=== PATIENT | female | born 1985 | race Hispanic/Latino ===

== ENCOUNTER 2017-08-24 09:56 | Emergency (ER) | payer OTHER, SELFPAY ==
[2017-08-24] MEDS ORDERED: KETOROLAC 30 MG/ML INJ ONE (10:31)
[2017-08-24 10:39] LABS: Urine Blood NEGATIVE (NEG); Urine Glucose NEGATIVE (NEG); Urine Protein NEGATIVE (NEG)
--- NOTE | 2017-08-24 10:41 | EDPHYS ---
Physician Documentation [facility] Name: Katy Stone Age: 32 yrs Sex: Female : 1985 Arrival Date: 08/24/2017 Time: 09:59 Bed 12 Private MD: ED Physician Akil Pearce HPI: 08/24 10:16 This 32 yrs old Female presents to ER via Ambulatory with complaints of low cp back pain. 10:16 The patient presents with pain that is acute. cp 10:16 The symptoms are located in the low back. Onset: The symptoms/episode began/occurred cp yesterday. The pain radiates to the left hip. Associated signs and symptoms: Pertinent negatives: abdominal pain, constipation, fever, hematuria, numbness, tingling, urinary retention, weakness, bladder or bowel incontinence. The problem was sustained started after bending over to bath child. Modifying factors: the patient symptoms are aggravated by bending. 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 - Social history:: Smoking status: Patient uses tobacco products, smokes one-half pack cigarettes per day. ROS: 10:20 Constitutional: Negative for body aches, chills, fever, poor PO intake. cp 10:20 Eyes: Negative for injury, pain, redness, and discharge. cp 10:20 Neck: Negative for pain with movement, pain at rest, stiffness, tenderness, bony tenderness. 10:20 Cardiovascular: Negative for chest pain, edema, palpitations. 10:20 Respiratory: Negative for cough, shortness of breath, wheezing. 10:20 Abdomen/GI: Negative for abdominal pain, nausea, vomiting, and diarrhea, black/tarry stool, rectal bleeding, bowel incontinence. 10:20 Back: Positive for pain at rest, pain with movement, of the left low back. 10:20 : Negative for urinary symptoms. 10:20 Skin: Negative for cellulitis, rash. 10:20 Neuro: Negative for altered mental status, gait disturbance, numbness, tingling, weakness. 10:20 All other systems are negative. Exam: 10:25 Constitutional: The patient appears in no acute distress, alert, awake, non-toxic, well cp developed, well nourished. 10:25 Head/Face: Normocephalic, atraumatic. cp 10:25 Eyes: Periorbital structures: appear normal, Conjunctiva: normal, no exudate, no injection, Lids and lashes: appear normal, bilaterally. 10:25 ENT: External ear(s): are unremarkable, Nose: is normal, Mouth: is normal, Posterior pharynx: is normal, airway is patent, no erythema, no exudate. 10:25 Neck: ROM/movement: is normal, is supple, without pain, no range of motions limitations, no nuchal rigidity. 10:25 Chest/axilla: Inspection: normal, Palpation: is normal, no crepitus, no tenderness. 10:25 Cardiovascular: Rate: normal, Rhythm: regular. 10:25 Respiratory: the patient does not display signs of respiratory distress, Respirations: normal, no use of accessory muscles, no retractions, no splinting, no tachypnea. 10:25 Abdomen/GI: Exam negative for discomfort, distension, guarding, Inspection: abdomen appears normal. 10:25 Back: pain, that is mild, of the left low back, ROM is normal, muscle spasm, is not present. 10:25 Skin: cellulitis, is not appreciated, no rash present. 10:25 Neuro: Orientation: to person, place \T\ time. Mentation: is normal, Motor: moves all fours, strength is normal, Sensation: no obvious gross deficits, Gait: is steady, at a normal pace, without difficulty. 10:25 Musculoskeletal/extremity: Extremities: grossly normal except: noted in the left hip: cp radiating pain, There is no evidence of decreased ROM, deformity. Vital Signs: 10:01 BP 130 / 83; Pulse 90; Resp 15; Temp 97.5; Pulse Ox 100% on R/A; Weight 77.11 kg; la1 Height 5 ft. 2 in. (157.48 cm); 10:01 Body Mass Index 31.09 (77.11 kg, 157.48 cm) la1 MDM: 10:12 Patient medically screened. cp 10:20 Differential diagnosis: Cholelithiasis ruptured disc, Ureterolithiasis UTI, sciatica, cp cauda equina, spinal stenosis. 10:40 Data reviewed: vital signs, nurses notes, lab test result(s), and as a result, I will cp discharge patient. 10:40 Counseling: I had a detailed discussion with the patient and/or guardian regarding: the cp historical points, exam findings, and any diagnostic results supporting the discharge/admit diagnosis, lab results, the need for outpatient follow up, a family practitioner, to return to the emergency department if symptoms worsen or persist or if there are any questions or concerns that arise at home. 10:40 Response to treatment: There is no appreciated change of the patient's symptoms at this cp time, and as a result, I will discharge patient. 08/24 10:27 Order name: Urine Dipstick--Ancillary (enter results); Complete Time: 10:42 ag 08/24 10:42 Interpretation: Normal except: UESTR TRACE. cp 08/24 10:27 Order name: Urine --Ancillary (enter results); Complete Time: 10:42 ag 08/24 10:42 Interpretation: Reviewed. cp 08/24 10:17 Order name: Urine Dipstick-Ancillary (obtain specimen); Complete Time: 10:18 cp 08/24 10:17 Order name: Urine Test (obtain specimen); Complete Time: 10:23 cp Administered Medications: 10:35 Drug: TORadol 60 mg Route: IM; Site: right gluteus; iw Disposition: 14:04 Co-signature as Attending Physician, Akil Pearce MD I agree with the assessment and kdr plan of care. Disposition: 08/24/17 10:40 Discharged to Home. Impression: Low back pain. - Condition is Stable. - Discharge Instructions: Back Pain, Adult, Back Exercises, [id number], Heat Therapy. - Prescriptions for Naprosyn 500 mg Oral Tablet - take 1 tablet by ORAL route 2 times per day take with food; 20 tablet. Cyclobenzaprine 10 mg Oral Tablet - take 1 tablet by ORAL route every 8 hours As needed no driving while taking medication; 20 tablet. - Work release form, Medication Reconciliation Form, Thank You Letter, Antibiotic Education, Prescription Opioid Use form. - Follow up: Private Physician; When: 2 - 3 days; Reason: Recheck today's complaints. - Problem is new. - Symptoms are unchanged. Signatures: Dispatcher [employer] Akil Arrieta MD MD kdr Amanda Verma RN RN iw Edwar Horowitz RN RN la1 Hermes Voss PA PA cp
--- NOTE | 2017-08-24 10:41 | ER ---
Nurse's Notes [facility] Name: Katy Stone Age: 32 yrs Sex: Female : 1985 Arrival Date: 08/24/2017 Time: 09:59 Bed 12 Private MD: Diagnosis: Low back pain Presentation: 08/24 10:01 Presenting complaint: Patient states: Yesterday I was bathing my son and I got a pain la1 in my left lower back and in to my hip. Transition of care: patient was not received from another setting of care. Onset of symptoms was August 24, 2017. Care prior to arrival: None. 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 - Social history:: Smoking status: Patient uses tobacco products, smokes one-half pack cigarettes per day. Screenin:13 Abuse screen: Denies threats or abuse. Denies injuries from another. Nutritional iw screening: No deficits noted. Tuberculosis screening: No symptoms or risk factors identified. Fall Risk None identified. Assessment: 10:13 General: Appears in no apparent distress. Behavior is calm, cooperative. Pain: iw Complains of pain in left lower back Pain currently is 8 out of 10 on a pain scale. Neuro: Level of Consciousness is awake, alert, obeys commands, Oriented to person, place, time, situation, Moves all extremities. Cardiovascular: Patient's skin is warm and dry. Respiratory: Respiratory effort is even, unlabored, Respiratory pattern is regular, symmetrical. GI: No signs and/or symptoms were reported involving the gastrointestinal system. Derm: Skin is pink, warm \T\ dry. normal. Musculoskeletal: Reports pain in back. Vital Signs: 10:01 BP 130 / 83; Pulse 90; Resp 15; Temp 97.5; Pulse Ox 100% on R/A; Weight 77.11 kg; la1 Height 5 ft. 2 in. (157.48 cm); 10:01 Body Mass Index 31.09 (77.11 kg, 157.48 cm) la1 ED Course: 09:59 Patient arrived in ED. tw3 10:01 Triage completed. la1 10:02 Arm band placed on left wrist. la1 10:06 Amanda Verma RN is Primary Nurse. iw 10:12 Hermes Voss PA is PHCP. cp 10:12 Akil Pearce MD is Attending Physician. cp 10:13 Patient has correct armband on for positive identification. iw 10:13 No provider procedures requiring assistance completed. iw Administered Medications: 10:35 Drug: TORadol 60 mg Route: IM; Site: right gluteus; iw Outcome: 10:40 Discharge ordered by . cp 11:07 Patient left the ED. iw Signatures: Amanda Verma RN RN iw Edwar Horowitz RN RN la1 Hermes Voss PA PA Breanna Duvall tw3
[2017-08-24 11:11] VITALS: BP 130/83; TEMP 97.5; O2SAT 100
== END 2017-08-24 11:07 | disposition home or self-care (01) ==
LOC: ER 09:56
DX: M54.5 Low back pain (principal); F17.210 Nicotine dependence, cigarettes, uncomplicated
CPT/HCPCS: 81003; 81025; 96372; 99282

== ENCOUNTER 2018-03-08 09:00 | Emergency (ER) | payer SELFPAY ==
[2018-03-08 10:03] LABS: Absolute Lymphocytes (CBC) 2.4 K/uL (0.7-4.9); Absolute Monocytes 0.8 K/uL (0.1-1.3); Basophils % 0.3 % (0-1.3); Eosinophils % 0.5 % (0-4.4); Hematocrit 40.1 % (36.0-45.0); Lymphocytes % 23.5 % (15.3-44.8); MCH 30.9 pg (27.0-35.0); MCV 92.2 fL (80-100); MPV 8.9 fL (7.6-11.3); Monocytes % 8.1 % (3.3-12.3); RBC Red Blood Cell Count 4.35 M/uL (3.86-4.86)
[2018-03-08] MEDS ORDERED: KETOROLAC 30 MG/ML INJ ONE (10:07)
[2018-03-08 10:15] LABS: BUN Blood Urea Nitrogen 13 mg/dL (7-18); Bicarbonate 26 mmol/L (21-32); Glucose Level 108 mg/dL (74-106); Potassium 4.1 mmol/L (3.5-5.1); Sodium Level 139 mmol/L (136-145); Troponin (Emerg Dept Use Only) < 0.02 ng/mL (0.0-0.045)
[2018-03-08 10:41] LABS: Urine Blood TRACE (NEG); Urine Glucose NEGATIVE (NEG); Urine Protein TRACE (NEG)
--- NOTE | 2018-03-08 11:42 | ER ---
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 Pt also reports SOB. Transition of care: patient was not received from another setting of care. Onset of symptoms was February 2018. Risk Assessment: Do you want to hurt yourself or someone else? Patient reports no desire to harm self or others. Initial Sepsis Screen: Does the patient meet any 2 criteria? No. Patient's initial sepsis screen is negative. Does the patient have a suspected source of infection? No. Patient's initial sepsis screen is negative. Care prior to arrival: None. 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 - Social history:: Smoking status: Patient/guardian denies using tobacco, Patient/guardian denies using street drugs. - Ebola Screening: : No symptoms or risks identified at this time. Screenin:30 Abuse screen: Denies threats or abuse. Nutritional screening: No deficits noted. em Tuberculosis screening: No symptoms or risk factors identified. Fall Risk None identified. Assessment: 09:30 General: Appears in no apparent distress. uncomfortable, Behavior is cooperative, em anxious. Pain: Complains of pain in anterior aspect of left upper chest Pain radiates to left submandibular area Pain currently is 8 out of 10 on a pain scale. Pain began 1 hour ago. Neuro: Level of Consciousness is awake, alert, obeys commands, Oriented to person, place, time, situation. Cardiovascular: Reports chest pain, Heart tones S1 S2 present Capillary refill < 3 seconds Patient's skin is warm and dry. Respiratory: Airway is patent Respiratory effort is even, unlabored, Respiratory pattern is regular, symmetrical, Breath sounds are clear bilaterally. GI: Abdomen is round non-distended. : No signs and/or symptoms were reported regarding the genitourinary system. Derm: Skin is intact, Skin is pink, warm \T\ dry. Musculoskeletal: Capillary refill < 3 seconds, Range of motion: intact in all extremities. 09:30 Reassessment: I agree with assessment completed by Taras Rangel LVN . aa5 10:30 Reassessment: Patient appears in no apparent distress at this time. Patient and/or em family updated on plan of care and expected duration. Pain level reassessed. Patient is alert, oriented x 3, equal unlabored respirations, skin warm/dry/pink. 11:50 Reassessment: Patient appears in no apparent distress at this time. Patient and/or em family updated on plan of care and expected duration. Pain level reassessed. Patient is alert, oriented x 3, equal unlabored respirations, skin warm/dry/pink. rates pain 2/10 Patient states feeling better. Patient states symptoms have improved. Vital Signs: 09:15 BP 133 / 72; Pulse 104; Resp 20 S; Temp 98.7(TE); Pulse Ox 100% on R/A; Weight 77.11 kg aa5 (R); Height 5 ft. 1 in. (154.94 cm) (R); Pain 8/10; 09:15 Body Mass Index 32.12 (77.11 kg, 154.94 cm) aa5 09:15 Pt crying during VS aa5 ED Course: 09:02 Patient arrived in ED. mr 09:02 None, None is Private Physician. mr 09:15 Triage completed. aa5 09:15 Arm band placed on. aa5 09:20 Taras Rangel LVN is Primary Nurse. em 09:21 EKG completed in triage. Results shown to MD. aa5 09:24 Olayinka Mario MD is Attending Physician. gs 09:30 Patient has correct armband on for positive identification. Placed in gown. Bed in low em position. Call light in reach. residential monitor on. Pulse ox on. NIBP on. 09:48 Initial lab(s) drawn, by me, sent to lab. Urine collected: clean catch specimen, clear. mh5 Inserted saline lock: 20 gauge in right antecubital area, using aseptic technique. Blood collected. 09:52 Urine --Ancillary (enter results) Sent. 5 09:52 Urine Dipstick--Ancillary (enter results) Sent. [facility] 09:52 Basic Metabolic Panel Sent. [facility] 09:52 CBC with Diff Sent. [facility] 09:52 Troponin (emerg Dept Use Only) Sent. [facility] 10:11 X-ray completed. Portable x-ray completed in exam room. 1 10:13 XRAY Chest (1 view) In Process Unspecified. EDMS 11:48 Patient maintains SpO2 saturation greater than 95% on room air. em 12:15 No provider procedures requiring assistance completed. IV discontinued, intact, em bleeding controlled, No redness/swelling at site. Pressure dressing applied. Administered Medications: 10:16 Drug: TORadol 30 mg Route: IVP; Site: right antecubital; 5 10:45 Follow up: Response: No adverse reaction; Pain is decreased em Outcome: 11:42 Discharge ordered by . 12:15 Discharged to home ambulatory. em 12:15 Condition: good 12:15 Discharge instructions given to patient, Instructed on discharge instructions, follow up and referral plans. medication usage, Demonstrated understanding of instructions, follow-up care, medications, Prescriptions given X 1. 12:16 Patient left the ED. em Signatures: Dispatcher [employer] JONATANMI WilkesDarcie mr StephenRenee jr1 Taras Rangel, BANKING SERVICES CLERK BANKING SERVICES CLERK Laxmi Bah, Xiomara Cerda RN [facility] Olayinka Mario MD MD
--- NOTE | 2018-03-08 12:17 | EDPHYS ---
Physician Documentation [facility] Name: Katy Stone Age: 33 yrs Sex: Female : 1985 Arrival Date: 03/08/2018 Time: 09:02 Bed 15 Private MD: None, None ED Physician Olayinka Mario HPI: 03/08 11:26 This 33 yrs old Female presents to ER via Ambulatory with complaints of Chest gs Pain. 11:26 The patient or guardian reports chest pain that is located primarily in the anterior gs chest wall, left. The pain does not radiate. Associated signs and symptoms: Pertinent positives: left sided neck pain, neck stiffens up hurts to move similar episodes in past. The chest pain is described as sharp. Duration: The patient or guardian reports multiple episodes, that are intermittent, that wax and wane, with no pattern, the episodes last approximately 30 second(s). Modifying factors: the symptoms are aggravated by movement, twisting torso. Severity of pain: At its worst the pain was moderate in the emergency department the pain has resolved. The patient has experienced similar episodes in the past, several times. 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 - Social history:: Smoking status: Patient/guardian denies using tobacco, Patient/guardian denies using street drugs. - Ebola Screening: : No symptoms or risks identified at this time. ROS: 11:26 Cardiovascular: Negative for orthopnea, palpitations. gs 11:26 Respiratory: Negative for pleurisy, shortness of breath. 11:26 All other systems are negative. Exam: 11:26 Head/Face: Normocephalic, atraumatic. Eyes: Pupils equal round and reactive to light, gs extra-ocular motions intact. Lids and lashes normal. Conjunctiva and sclera are non-icteric and not injected. Cornea within normal limits. Periorbital areas with no swelling, redness, or edema. ENT: Nares patent. No nasal discharge, no septal abnormalities noted. Tympanic membranes are normal and external auditory canals are clear. Oropharynx with no redness, swelling, or masses, exudates, or evidence of obstruction, uvula midline. Mucous membranes moist. Neck: Trachea midline, no thyromegaly or masses palpated, and no cervical lymphadenopathy. Supple, full range of motion without nuchal rigidity, or vertebral point tenderness. No Meningismus. Chest/axilla: Normal chest wall appearance and motion. Nontender with no deformity. No lesions are appreciated. Cardiovascular: Regular rate and rhythm with a normal S1 and S2. No gallops, murmurs, or rubs. Normal PMI, no JVD. No pulse deficits. Respiratory: Lungs have equal breath sounds bilaterally, clear to auscultation and percussion. No rales, rhonchi or wheezes noted. No increased work of breathing, no retractions or nasal flaring. Abdomen/GI: Soft, non-tender, with normal bowel sounds. No distension or tympany. No guarding or rebound. No evidence of tenderness throughout. Back: No spinal tenderness. No costovertebral tenderness. Full range of motion. Skin: Warm, dry with normal turgor. Normal color with no rashes, no lesions, and no evidence of cellulitis. MS/ Extremity: Pulses equal, no cyanosis. Neurovascular intact. Full, normal range of motion. Neuro: Awake and alert, GCS 15, oriented to person, place, time, and situation. Cranial nerves II-XII grossly intact. Motor strength 5/5 in all extremities. Sensory grossly intact. Cerebellar exam normal. Normal gait. 11:26 Constitutional: The patient appears alert, awake. 11:26 ECG was reviewed by the Attending Physician. Vital Signs: 09:15 BP 133 / 72; Pulse 104; Resp 20 S; Temp 98.7(TE); Pulse Ox 100% on R/A; Weight 77.11 kg aa5 (R); Height 5 ft. 1 in. (154.94 cm) (R); Pain 8/10; 09:15 Body Mass Index 32.12 (77.11 kg, 154.94 cm) aa5 09:15 Pt crying during VS aa5 MDM: 09:35 Patient medically screened. 11:26 Differential diagnosis: coronary artery disease chest wall pain, torticollis. Data gs reviewed: vital signs, nurses notes. 11:26 Counseling: I had a detailed discussion with the patient and/or guardian regarding: the gs presence of at least one elevated blood pressure reading (>120/80) during this emergency department visit. Response to treatment: the patient's symptoms have resolved after treatment, the patient's pain is gone. Special discussion: I have referred the patient to see his PCP for further evaluation of high blood pressure. 03/08 09:36 Order name: Basic Metabolic Panel; Complete Time: 10:47 03/08 09:36 Order name: CBC with Diff; Complete Time: 10:47 03/08 09:36 Order name: Troponin (emerg Dept Use Only); Complete Time: 10:47 gs 03/08 09:36 Order name: XRAY Chest (1 view) 03/08 09:51 Order name: Urine Dipstick--Ancillary (enter results); Complete Time: 10:47 03/08 09:51 Order name: Urine --Ancillary (enter results); Complete Time: 10:47 eb 03/08 09:36 Order name: EKG; Complete Time: 09:37 03/08 09:36 Order name: Cardiac monitoring; Complete Time: 09:52 03/08 09:36 Order name: EKG - Nurse/Tech; Complete Time: 09:52 03/08 09:36 Order name: IV Saline Lock; Complete Time: 09:52 03/08 09:36 Order name: Labs collected and sent; Complete Time: 09:53 03/08 09:36 Order name: O2 Per Protocol; Complete Time: 09:56 03/08 09:36 Order name: O2 Sat Monitoring; Complete Time: 09:55 gs EC:26 Rate is 85 beats/min. Rhythm is regular. MA interval is normal. QRS interval is normal. gs QT interval is normal. T waves are Normal. No ST changes noted. Clinical impression: Normal ECG. Interpreted by me. Administered Medications: 10:16 Drug: TORadol 30 mg Route: IVP; Site: right antecubital; aa5 10:45 Follow up: Response: No adverse reaction; Pain is decreased em Disposition: 03/08/18 11:42 Discharged to Home. Impression: Chest pain, unspecified, Torticollis. - Condition is Stable. - Discharge Instructions: Nonspecific Chest Pain, Acute Torticollis, Adult, Managing Your Hypertension. - Prescriptions for Naprosyn 500 mg Oral Tablet - take 1 tablet by ORAL route 2 times per day As needed take with food; 30 tablet. - Work release form, Medication Reconciliation Form, Thank You Letter, Antibiotic Education, Prescription Opioid Use form. - Follow up: Private Physician; When: 2 - 3 days; Reason: Re-evaluation by your physician. Signatures: Dispatcher [employer] EDTaras Veliz, EXTERMINATOR EXTERMINATOR Laxmi Bah RN RN aa5 Olayinka Mario MD MD gs Corrections: (The following items were deleted from the chart) 12:16 11:42 03/08/2018 11:42 Discharged to Home. Impression: Chest pain, unspecified; em Torticollis. Condition is Stable. Forms are Medication Reconciliation Form, Thank You Letter, Antibiotic Education, Prescription Opioid Use. Follow up: Private Physician; When: 2 - 3 days; Reason: Re-evaluation by your physician. gs
--- NOTE | 2018-03-08 12:33 | RAD REPORT ---
EXAM DESCRIPTION: Gurjit Single View03/08/2018 10:13 am CLINICAL HISTORY: Chest pain COMPARISON: none FINDINGS: The lungs appear clear of acute infiltrate. The heart is mildly enlarged IMPRESSION: No acute abnormalities displayed
[2018-03-08 12:35] VITALS: BP 133/72; TEMP 98.7; O2SAT 100
--- NOTE | 2018-03-09 19:17 | EKG ---
Test Date: 2018-03-08 Test Time: 09:20:11 Purchasing Assistant: DORYS MEASUREMENT RESULTS: Intervals: Rate: 85 LA: 160 QRSD: 90 QT: 378 QTc: 449 Foley: P: 49 LA: 160 QRS: 73 T: 59 INTERPRETIVE STATEMENTS: Normal sinus rhythm with sinus arrhythmia Normal ECG Compared to ECG 03/21/2007 16:18:55 No significant changes Electronically Signed On 03-09-18 19:15:00 CDT by Tony Muñoz
== END 2018-03-08 12:16 | disposition home or self-care (01) ==
LOC: ER 09:00
DX: M43.6 Torticollis (principal)
CPT/HCPCS: 36415; 71045; 80048; 81003; 81025; 84484; 85025; 93005; 96374; 99285

== ENCOUNTER 2018-11-24 14:44 | Emergency (ER) | payer SELFPAY ==
--- NOTE | 2018-11-24 15:19 | ER ---
Nurse's Notes [facility] Name: Katy Stone Age: 33 yrs Sex: Female : 1985 Arrival Date: 11/24/2018 Time: 14:47 Bed 30 Private MD: Diagnosis: Dental caries;Dentalgia Presentation: 11/24 14:50 Presenting complaint: Patient states: "I have a toothache and it's making my right ear aa5 hurt and the whole right side of my head is hurting too". Pt reports symptoms began 3 days ago. Transition of care: patient was not received from another setting of care. Onset of symptoms was November 2018. Risk Assessment: Do you want to hurt yourself or someone else? Patient reports no desire to harm self or others. Initial Sepsis Screen: Does the patient meet any 2 criteria? No. Patient's initial sepsis screen is negative. Does the patient have a suspected source of infection? No. Patient's initial sepsis screen is negative. Care prior to arrival: None. 14:50 Method Of Arrival: Ambulatory aa5 14:50 Acuity: KIRIT 4 aa5 Triage Assessment: 15:43 EENT: Reports. 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 - Social history:: Smoking status: Patient uses tobacco products, denies chronic smoking, but will smoke occasionally. - Ebola Screening: : No symptoms or risks identified at this time. Screenin:00 Abuse screen: Denies threats or abuse. Denies injuries from another. Nutritional ca1 screening: No deficits noted. Tuberculosis screening: No symptoms or risk factors identified. Fall Risk None identified. Assessment: 15:00 General: Appears in no apparent distress. comfortable, Behavior is calm, cooperative, ca1 appropriate for age. Pain: Complains of pain in lower right second molar (#31) and lower right first molar (#30) and upper right first molar (#3) and upper right second molar (#2) Pain radiates to right ear Pain currently is 10 out of 10 on a pain scale. Pain began a week ago. EENT: Oral mucosa is moist. Good dentition noted. Dental caries noted in lower right second molar (#31) and lower right first molar (#30) and upper right first molar (#3) and upper right second molar (#2). 15:42 Reassessment: Patient appears in no apparent distress at this time. Patient is alert, ca1 oriented x 3, equal unlabored respirations, skin warm/dry/pink. Vital Signs: 14:52 BP 126 / 70; Pulse 78; Resp 18 S; Temp 99.2(TE); Pulse Ox 100% on R/A; Weight 90.72 kg aa5 (R); Height 5 ft. 1 in. (154.94 cm) (R); Pain 10/10; 15:42 BP 120 / 63; Pulse 81; Resp 16 S; Pulse Ox 100% on R/A; ca1 14:52 Body Mass Index 37.79 (90.72 kg, 154.94 cm) aa5 ED Course: 14:47 Patient arrived in ED. rg4 14:50 Arm band placed on. aa5 14:51 Triage completed. aa5 14:55 Meenakshi Crane RN is Primary Nurse. ca1 14:55 Karel Samuel PA is PHCP. jr8 14:55 Akil Pearce MD is Attending Physician. jr8 15:00 Patient has correct armband on for positive identification. Bed in low position. Call ca1 light in reach. Side rails up X 1. Pulse ox on. NIBP on. Head of bed elevated. 15:00 No provider procedures requiring assistance completed. Patient did not have IV access ca1 during this emergency room visit. Administered Medications: 15:23 Drug: TORadol - Ketorolac 15 mg Route: IM; Site: right deltoid; ca1 15:40 Follow up: Response: Medication administered at discharge. ca1 Outcome: 15:18 Discharge ordered by . jrDerick 15:43 Discharged to home ambulatory, with family. ca1 15:43 Condition: stable 15:43 Discharge instructions given to patient, Instructed on discharge instructions, follow up and referral plans. no driving heavy equipment, medication usage, Demonstrated understanding of instructions, follow-up care, medications, Prescriptions given X 3. 15:43 Patient left the ED. ca1 Signatures: Laxmi Singer RN RN 5 Karel Samuel PA PA 8 Kim Lawton rg4 Acob, Meenakshi, RN RN ca1
--- NOTE | 2018-11-24 15:19 | EDPHYS ---
Physician Documentation [facility] Name: Katy Stone Age: 33 yrs Sex: Female : 1985 Arrival Date: 11/24/2018 Time: 14:47 Bed 30 Private MD: ED Physician Akil Pearce HPI: 11/24 15:13 This 33 yrs old Female presents to ER via Ambulatory with complaints of jr8 Toothache, Headache, Ear Pain. 15:13 The patient presents with pain, swelling. The problem is located in the right lower jr8 jaw. Onset: The symptoms/episode began/occurred acutely, 3 day(s) ago. Duration: The symptoms are continuous, and are steadily getting worse. Modifying factors: The symptoms are alleviated by nothing, the symptoms are aggravated by chewing. Associated signs and symptoms: Pertinent negatives: chills, fever, nausea, vomiting. Severity of symptoms: At their worst the symptoms were moderate, in the emergency department the symptoms are unchanged. The patient has not experienced similar symptoms in the past. The patient has not recently seen a physician. 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 - Social history:: Smoking status: Patient uses tobacco products, denies chronic smoking, but will smoke occasionally. - Ebola Screening: : No symptoms or risks identified at this time. ROS: 15:13 Constitutional: Negative for fever, chills, and weight loss, Eyes: Negative for injury, jr8 pain, redness, and discharge, Neck: Negative for injury, pain, and swelling, Cardiovascular: Negative for chest pain, palpitations, and edema, Respiratory: Negative for shortness of breath, cough, wheezing, and pleuritic chest pain, Abdomen/GI: Negative for abdominal pain, nausea, vomiting, diarrhea, and constipation, MS/Extremity: Negative for injury and deformity, Skin: Negative for injury, rash, and discoloration, Neuro: Negative for headache, weakness, numbness, tingling, and seizure. 15:13 ENT: Positive for dental pain, ear pain, Negative for drainage from ear(s), hearing loss, sinus congestion, sinus pain, sore throat, difficulty swallowing. Exam: 15:13 Constitutional: This is a well developed, well nourished patient who is awake, alert, jr8 and in no acute distress. Head/Face: Normocephalic, atraumatic. Eyes: Pupils equal round and reactive to light, extra-ocular motions intact. Lids and lashes normal. Conjunctiva and sclera are non-icteric and not injected. Cornea within normal limits. Periorbital areas with no swelling, redness, or edema. Neck: Trachea midline, no thyromegaly or masses palpated, and no cervical lymphadenopathy. Supple, full range of motion without nuchal rigidity, or vertebral point tenderness. No Meningismus. Cardiovascular: Regular rate and rhythm with a normal S1 and S2. No gallops, murmurs, or rubs. Normal PMI, no JVD. No pulse deficits. Respiratory: Lungs have equal breath sounds bilaterally, clear to auscultation and percussion. No rales, rhonchi or wheezes noted. No increased work of breathing, no retractions or nasal flaring. Abdomen/GI: Soft, non-tender, with normal bowel sounds. No distension or tympany. No guarding or rebound. No evidence of tenderness throughout. Skin: Warm, dry with normal turgor. Normal color with no rashes, no lesions, and no evidence of cellulitis. MS/ Extremity: Pulses equal, no cyanosis. Neurovascular intact. Full, normal range of motion. Neuro: Awake and alert, GCS 15, oriented to person, place, time, and situation. Cranial nerves II-XII grossly intact. Motor strength 5/5 in all extremities. Sensory grossly intact. Cerebellar exam normal. Normal gait. 15:13 ENT: External ear(s): are unremarkable, Ear canal(s): are normal, TM's: are normal, Nose: is normal, Mouth: is normal, no abscess, Posterior pharynx: is normal, erythema, is not appreciated, Dental exam: dental caries, that is mild, diffusely, gum swelling, not appreciated, pain, that is moderate, specifically in the upper right second molar (#2), upper right first molar (#3), lower right first molar (#30) and lower right second molar (#31). Vital Signs: 14:52 BP 126 / 70; Pulse 78; Resp 18 S; Temp 99.2(TE); Pulse Ox 100% on R/A; Weight 90.72 kg aa5 (R); Height 5 ft. 1 in. (154.94 cm) (R); Pain 10/10; 15:42 BP 120 / 63; Pulse 81; Resp 16 S; Pulse Ox 100% on R/A; ca1 14:52 Body Mass Index 37.79 (90.72 kg, 154.94 cm) aa5 MDM: 14:55 Patient medically screened. jr8 15:13 Data reviewed: vital signs, nurses notes, and as a result, I will discharge patient. jr8 Data interpreted: Pulse oximetry: on room air is 100 %. Interpretation: normal. Counseling: I had a detailed discussion with the patient and/or guardian regarding: the historical points, exam findings, and any diagnostic results supporting the discharge/admit diagnosis, the need for outpatient follow up, a dentist, to return to the emergency department if symptoms worsen or persist or if there are any questions or concerns that arise at home. Administered Medications: 15:23 Drug: TORadol - Ketorolac 15 mg Route: IM; Site: right deltoid; ca1 15:40 Follow up: Response: Medication administered at discharge. ca1 Disposition: 16:40 Co-signature as Attending Physician, Akil Pearce MD I agree with the assessment and kdr plan of care. Disposition: 11/24/18 15:18 Discharged to Home. Impression: Dental caries, Dentalgia. - Condition is Stable. - Discharge Instructions: Dental Abscess, Dental Caries, Adult, Dental Pain. - Prescriptions for Amoxicillin 875 mg Oral Tablet - take 1 tablet by ORAL route every 12 hours for 10 days; 20 tablet. Ibuprofen 800 mg Oral Tablet - take 1 tablet by ORAL route every 8 hours As needed take with food; 30 tablet. Tylenol- Codeine #3 300-30 mg Oral Tablet - take 2 tablets by ORAL route every 6 hours As needed; 12 tablet. - Medication Reconciliation Form, Thank You Letter, Antibiotic Education, Prescription Opioid Use form. - Follow up: Private Physician; When: 2 - 3 days; Reason: Recheck today's complaints, Continuance of care, Re-evaluation by your physician. - Problem is new. - Symptoms have improved. Signatures: Akil Pearce MD MD kdr Laxmi Singer, RN RN aa5 Karel Samuel PA PA jr8 Meenakshi Crane RN RN ca1 Corrections: (The following items were deleted from the chart) 15:43 15:18 11/24/2018 15:18 Discharged to Home. Impression: Dental caries; Dentalgia. ca1 Condition is Stable. Forms are Medication Reconciliation Form, Thank You Letter, Antibiotic Education, Prescription Opioid Use. Follow up: Private Physician; When: 2 - 3 days; Reason: Recheck today's complaints, Continuance of care, Re-evaluation by your physician. Problem is new. Symptoms have improved. jr8
[2018-11-24] MEDS ORDERED: KETOROLAC 30 MG/ML INJ ONE (15:49)
[2018-11-24 16:54] VITALS: TEMP 99.2; O2SAT 100
[2018-11-24 16:55] VITALS: BP 120/63
== END 2018-11-24 15:43 | disposition home or self-care (01) ==
LOC: ER 14:44
DX: K02.9 Dental caries, unspecified (principal); Z72.0 Tobacco use
CPT/HCPCS: 96372; 99283

== ENCOUNTER 2018-12-21 22:51 | Emergency (ER) | payer SELFPAY ==
--- NOTE | 2018-12-21 23:12 | EDPHYS ---
Physician Documentation [facility] Name: Katy Stone Age: 33 yrs Sex: Female : 1985 Arrival Date: 12/21/2018 Time: 22:55 Bed 11 Private MD: ED Physician Olayinka Mario HPI: 12/21 23:11 This 33 yrs old Female presents to ER via Ambulatory with complaints of Ear pm1 Pain, Dental Pain. 23:11 The patient presents with pain. The problem is located in the lower right first molar. pm1 Onset: The symptoms/episode began/occurred 1 month(s) ago. Duration: The symptoms are continuous. Associated signs and symptoms: Pertinent negatives: fever, inability to eat, nausea, swelling, vomiting. Severity of symptoms: in the emergency department the symptoms are actually worse. The patient has experienced a previous episode. The patient has not recently seen a physician. Patient seen here about 1 month ago for the same complaint. Prescribed abx and pain medications and symptoms improved. Was not able to go to dentist and her symptoms returned. 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 - Social history:: Smoking status: Patient/guardian denies using tobacco. - Ebola Screening: : No symptoms or risks identified at this time. ROS: 23:20 Constitutional: Negative for fever, chills, and weight loss, Eyes: Negative for injury, pm1 pain, redness, and discharge, Neck: Negative for injury, pain, and swelling. 23:20 Cardiovascular: Negative for chest pain, palpitations, and edema, Respiratory: Negative for shortness of breath, cough, wheezing, and pleuritic chest pain, Abdomen/GI: Negative for abdominal pain, nausea, vomiting, diarrhea, and constipation, Back: Negative for injury and pain, MS/Extremity: Negative for injury and deformity, Skin: Negative for injury, rash, and discoloration. 23:20 Neuro: Negative for headache, weakness, numbness, tingling, and seizure. 23:20 ENT: Positive for dental pain, ear pain, Negative for drainage from ear(s), sore throat, difficulty swallowing, difficulty handling secretions, hoarseness. Exam: 23:20 Constitutional: This is a well developed, well nourished patient who is awake, alert, pm1 and in no acute distress. Head/Face: Normocephalic, atraumatic. Eyes: Pupils equal round and reactive to light, extra-ocular motions intact. Lids and lashes normal. Conjunctiva and sclera are non-icteric and not injected. Cornea within normal limits. Periorbital areas with no swelling, redness, or edema. 23:20 Neck: Trachea midline, no thyromegaly or masses palpated, and no cervical lymphadenopathy. Supple, full range of motion without nuchal rigidity, or vertebral point tenderness. No Meningismus. Chest/axilla: Normal chest wall appearance and motion. Nontender with no deformity. No lesions are appreciated. Cardiovascular: Regular rate and rhythm with a normal S1 and S2. No gallops, murmurs, or rubs. Normal PMI, no JVD. No pulse deficits. Respiratory: Lungs have equal breath sounds bilaterally, clear to auscultation and percussion. No rales, rhonchi or wheezes noted. No increased work of breathing, no retractions or nasal flaring. Abdomen/GI: Soft, non-tender, with normal bowel sounds. No distension or tympany. No guarding or rebound. No evidence of tenderness throughout. 23:20 Skin: Warm, dry with normal turgor. Normal color with no rashes, no lesions, and no evidence of cellulitis. MS/ Extremity: Pulses equal, no cyanosis. Neurovascular intact. Full, normal range of motion. 23:20 ENT: External ear(s): are unremarkable, Ear canal(s): are normal, TM's: are normal, Nose: is normal, Mouth: is normal, Posterior pharynx: is normal, Dental exam: abscess, is not appreciated, dental caries, specifically in the lower right second bicuspid (#29), lower right first molar (#30) and lower right second molar (#31), pain, that is moderate, specifically in the lower right first molar (#30). 23:20 Neuro: Orientation: is normal, Motor: moves all fours, Sensation: is normal, no obvious gross deficits, Gait: is steady, at a normal pace, without difficulty. Vital Signs: 23:16 BP 112 / 67; Pulse 72; Resp 16 S; Temp 98.2(O); Pulse Ox 100% on R/A; Weight 90.72 kg bb (R); Height 5 ft. 1 in. (154.94 cm) (R); Pain 10/10; 23:16 Body Mass Index 37.79 (90.72 kg, 154.94 cm) bb MDM: 23:05 Patient medically screened. pm1 23:11 Counseling: I had a detailed discussion with the patient and/or guardian regarding: the pm1 historical points, exam findings, and any diagnostic results supporting the discharge/admit diagnosis, the need for outpatient follow up, for definitive care, a dentist, to return to the emergency department if symptoms worsen or persist or if there are any questions or concerns that arise at home. 23:11 Data reviewed: vital signs. Data interpreted: Pulse oximetry: on room air is 100 %. pm1 Interpretation: normal. Administered Medications: No medications were administered Disposition: 12/21/18 23:11 Discharged to Home. Impression: Dental pain. - Condition is Stable. - Discharge Instructions: Dental Pain. - Prescriptions for Augmentin 875- 125 mg Oral Tablet - take 1 tablet by ORAL route every 12 hours for 10 days; 20 tablet. Tramadol 50 mg Oral Tablet - take 1 tablet by ORAL route every 8 hours as needed; 12 tablet. - Medication Reconciliation Form, Thank You Letter, Antibiotic Education, Prescription Opioid Use form. - Follow up: Emergency Department; When: As needed; Reason: Worsening of condition. Follow up: Private Physician; When: 2 - 3 days; Reason: Recheck today's complaints, Continuance of care, Re-evaluation by your physician. - Problem is new. - Symptoms have improved. Addendum: 12/24/2018 03:23 Co-signature as Attending Physician, Olayinka Mario MD. g s Signatures: Kathie Pinedo RN RN bb Matty Duggan NP EMERGENCY DEPARTMENT pm1 Olayinka Mario MD MD Corrections: (The following items were deleted from the chart) 12/21 23:24 23:11 12/21/2018 23:11 Discharged to Home. Impression: Dental pain. Condition is bb Stable. Forms are Medication Reconciliation Form, Thank You Letter, Antibiotic Education, Prescription Opioid Use. Follow up: Emergency Department; When: As needed; Reason: Worsening of condition. Follow up: Private Physician; When: 2 - 3 days; Reason: Recheck today's complaints, Continuance of care, Re-evaluation by your physician. Problem is new. Symptoms have improved. pm1
--- NOTE | 2018-12-21 23:25 | ER ---
Nurse's Notes [facility] Name: Katy Stone Age: 33 yrs Sex: Female : 1985 Arrival Date: 12/21/2018 Time: 22:55 Bed 11 Private MD: Diagnosis: Dental pain Presentation: 12/21 23:14 Presenting complaint: Patient states: she is here for toothache and right ear pain she bb was seen here a couple of weeks ago for the same thing but was unable to see a dentist the pain is intolerable. Transition of care: patient was not received from another setting of care. Onset of symptoms was December 21, 2018. Risk Assessment: Do you want to hurt yourself or someone else? Patient reports no desire to harm self or others. Initial Sepsis Screen: Does the patient meet any 2 criteria? No. Patient's initial sepsis screen is negative. Does the patient have a suspected source of infection? No. Patient's initial sepsis screen is negative. Care prior to arrival: None. 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 - Social history:: Smoking status: Patient/guardian denies using tobacco. - Ebola Screening: : No symptoms or risks identified at this time. Screenin:23 Abuse screen: Denies threats or abuse. Nutritional screening: No deficits noted. bb Tuberculosis screening: No symptoms or risk factors identified. Fall Risk None identified. Assessment: 23:21 General: Appears uncomfortable, Behavior is cooperative, crying. Pain: Complains of bb pain in right upper jaw Pain radiates to right ear Pain currently is 10 out of 10 on a pain scale. Neuro: Level of Consciousness is awake, alert, obeys commands, Oriented to person, place, time, situation. Cardiovascular: No deficits noted. Respiratory: Airway is patent Respiratory effort is even, unlabored, Respiratory pattern is regular. GI: No deficits noted. EENT: Reports pain in right jaw. Derm: Skin is pink, warm \T\ dry. Musculoskeletal: Circulation, motion, and sensation intact. Vital Signs: 23:16 BP 112 / 67; Pulse 72; Resp 16 S; Temp 98.2(O); Pulse Ox 100% on R/A; Weight 90.72 kg bb (R); Height 5 ft. 1 in. (154.94 cm) (R); Pain 10/10; 23:16 Body Mass Index 37.79 (90.72 kg, 154.94 cm) bb ED Course: 22:55 Patient arrived in ED. ds1 23:02 Matty Duggan NP is PHCP. pm1 23:02 Olayinka Mario MD is Attending Physician. pm1 23:15 Triage completed. bb 23:16 Arm band placed on Patient placed in an exam room, on pulse oximetry. bb 23:21 Kathie Pinedo RN is Primary Nurse. bb 23:23 No provider procedures requiring assistance completed. Patient did not have IV access bb during this emergency room visit. 23:24 Patient has correct armband on for positive identification. bb Administered Medications: No medications were administered Outcome: 23:11 Discharge ordered by . pm1 23:23 Discharged to home ambulatory. bb 23:23 Condition: stable 23:23 Discharge instructions given to patient, Instructed on discharge instructions, follow up and referral plans. medication usage, Demonstrated understanding of instructions, follow-up care, medications, Prescriptions given X 2. 23:24 Patient left the ED. bb Signatures: Lani Cunningham ds1 Kathie Pinedo, RN RN bb Matty Duggan NP TRAVERSE ROD ASSEMBLER pm1
[2018-12-21 23:38] VITALS: BP 112/67; TEMP 98.2; O2SAT 100
== END 2018-12-21 23:24 | disposition home or self-care (01) ==
LOC: ER 22:51
DX: K08.89 Other specified disorders of teeth and supporting structures (principal)
CPT/HCPCS: 99283

== ENCOUNTER 2019-02-05 03:23 | Emergency (ER) | payer SELFPAY ==
--- NOTE | 2019-02-05 04:06 | ER ---
Nurse's Notes [facility] Name: Katy Stone Age: 33 yrs Sex: Female : 1985 Arrival Date: 02/05/2019 Time: 03:25 Bed 7 Private MD: Diagnosis: Dental caries-pain;Dental caries, unspecified Presentation: 02/05 03:39 Presenting complaint: Patient states: right top and bottom wisdom teeth. pt stated she ak1 has seen a dentist who referred her to an oral sx but due to financial issues she can not see the oral sx for wisdom teeth extraction. Transition of care: patient was not received from another setting of care. Onset of symptoms is unknown. Risk Assessment: Do you want to hurt yourself or someone else? Patient reports no desire to harm self or others. Initial Sepsis Screen: Does the patient meet any 2 criteria? No. Patient's initial sepsis screen is negative. Does the patient have a suspected source of infection? No. Patient's initial sepsis screen is negative. Care prior to arrival: None. 03:39 Method Of Arrival: Ambulatory ak1 03:39 Acuity: KIRIT 4 ak1 Triage Assessment: 03:41 General: Appears uncomfortable. 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 - Social history:: Smoking status: Patient/guardian denies using tobacco. - Ebola Screening: : No symptoms or risks identified at this time. - Family history:: not pertinent. Screenin:17 Abuse screen: Denies threats or abuse. Denies injuries from another. Nutritional tl1 screening: No deficits noted. Tuberculosis screening: No symptoms or risk factors identified. Fall Risk None identified. Assessment: 04:15 General: Appears in no apparent distress. uncomfortable, Behavior is cooperative, tl1 appropriate for age, crying. Pain: Complains of pain in face and right buccal mucosa and mouth Pain currently is 10 out of 10 on a pain scale. Quality of pain is described as aching. Neuro: Level of Consciousness is awake, alert, obeys commands, Oriented to person, place, time, situation, Cardiovascular: Denies chest pain. Respiratory: Airway is patent Trachea midline Respiratory effort is even, unlabored, Breath sounds are clear bilaterally. GI: Abdomen is round non-distended. : No signs and/or symptoms were reported regarding the genitourinary system. EENT: Poor dentition noted. Dental caries noted in upper right third molar (#1) and lower right third molar (#32) Reports pain. Derm: No signs and/or symptoms reported regarding the dermatologic system. Vital Signs: 03:38 BP 119 / 68; Pulse 85; Resp 20; Temp 98.8(TE); Pulse Ox 100% on R/A; Weight 77.11 kg ak1 (R); Height 5 ft. 1 in. (154.94 cm) (R); Pain 10/10; 04:31 BP 117 / 73; Pulse 73; Resp 17; Temp 98.8; Pulse Ox 97% on R/A; Pain 8/10; tl1 03:38 Body Mass Index 32.12 (77.11 kg, 154.94 cm) ak1 ED Course: 03:25 Patient arrived in ED. ds1 03:26 Hermes Hernandez MD is Attending Physician. niki 03:38 Arm band placed on Patient placed in an exam room, on a stretcher, on pulse oximetry, ak1 Patient notified of wait time. 03:38 Patient has correct armband on for positive identification. Bed in low position. Call tl1 light in reach. Side rails up X 1. 03:40 Triage completed. ak1 04:04 Henok Christianson DDS is Referral Physician. niki 04:15 Kailee Echeverria RN is Primary Nurse. tl1 04:18 No provider procedures requiring assistance completed. Patient did not have IV access tl1 during this emergency room visit. Administered Medications: 04:14 Drug: Demerol 50 mg {Note: Rass 0.} Route: IM; Site: right gluteus; tl1 04:34 Follow up: Response: No adverse reaction; Marked relief of symptoms; Pain is decreased; tl1 RASS: Alert and Calm (0) 04:14 Drug: Phenergan 25 mg Route: IM; Site: right gluteus; tl1 04:33 Follow up: Response: No adverse reaction; Marked relief of symptoms; Pain is decreased tl1 04:14 Drug: KeFLEX 500 mg Route: PO; tl1 04:33 Follow up: Response: No adverse reaction; No change in condition tl1 Outcome: 04:05 Discharge ordered by . niki 04:32 Discharged to home ambulatory, with family. tl1 04:32 Condition: stable 04:32 Discharge instructions given to patient, family, Instructed on discharge instructions, follow up and referral plans. Demonstrated understanding of instructions, follow-up care, medications, Prescriptions given X 2. 04:35 Patient left the ED. tl1 Signatures: Hermes Hernandez MD MD cha Sanford, Demi ds1 Kailee Echeverria RN RN tl1 Sierra Sandoval RN RN ak1
--- NOTE | 2019-02-05 04:07 | EDPHYS ---
Physician Documentation [facility] Name: Katy Stone Age: 33 yrs Sex: Female : 1985 Arrival Date: 02/05/2019 Time: 03:25 Bed 7 Private MD: ED Physician Hermes Hernandez HPI: 02/05 04:00 This 33 yrs old Female presents to ER via Ambulatory with complaints of [facility] Toothache. 04:00 The patient presents with broken tooth/teeth, pain. The problem is located in the right niki buccal mucosa. Onset: The symptoms/episode began/occurred 3 day(s) ago. Duration: The symptoms are continuous, and are steadily getting worse. Modifying factors: The symptoms are alleviated by nothing, the symptoms are aggravated by chewing. Associated signs and symptoms: The patient has no apparent associated signs or symptoms. Severity of symptoms: At their worst the symptoms were moderate, severe, in the emergency department the symptoms are unchanged. The patient has experienced similar episodes in the past, a few times. 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 - Social history:: Smoking status: Patient/guardian denies using tobacco. - Ebola Screening: : No symptoms or risks identified at this time. - Family history:: not pertinent. ROS: 04:00 Constitutional: Negative for fever, chills, and weight loss, Eyes: Negative for injury, niki pain, redness, and discharge, ENT: Negative for injury, pain, and discharge, Neck: Negative for injury, pain, and swelling, Cardiovascular: Negative for chest pain, palpitations, and edema, Respiratory: Negative for shortness of breath, cough, wheezing, and pleuritic chest pain, Abdomen/GI: Negative for abdominal pain, nausea, vomiting, diarrhea, and constipation, Back: Negative for injury and pain, : Negative for injury, bleeding, discharge, and swelling, MS/Extremity: Negative for injury and deformity, Skin: Negative for injury, rash, and discoloration, Neuro: Negative for headache, weakness, numbness, tingling, and seizure. Exam: 04:03 Constitutional: This is a well developed, well nourished patient who is awake, alert, niki and in no acute distress. Head/Face: Normocephalic, atraumatic. Eyes: Pupils equal round and reactive to light, extra-ocular motions intact. Lids and lashes normal. Conjunctiva and sclera are non-icteric and not injected. Cornea within normal limits. Periorbital areas with no swelling, redness, or edema. Neck: Trachea midline, no thyromegaly or masses palpated, and no cervical lymphadenopathy. Supple, full range of motion without nuchal rigidity, or vertebral point tenderness. No Meningismus. Chest/axilla: Normal chest wall appearance and motion. Nontender with no deformity. No lesions are appreciated. Cardiovascular: Regular rate and rhythm with a normal S1 and S2. No gallops, murmurs, or rubs. Normal PMI, no JVD. No pulse deficits. Respiratory: Lungs have equal breath sounds bilaterally, clear to auscultation and percussion. No rales, rhonchi or wheezes noted. No increased work of breathing, no retractions or nasal flaring. Abdomen/GI: Soft, non-tender, with normal bowel sounds. No distension or tympany. No guarding or rebound. No evidence of tenderness throughout. Back: No spinal tenderness. No costovertebral tenderness. Full range of motion. Skin: Warm, dry with normal turgor. Normal color with no rashes, no lesions, and no evidence of cellulitis. MS/ Extremity: Pulses equal, no cyanosis. Neurovascular intact. Full, normal range of motion. Neuro: Awake and alert, GCS 15, oriented to person, place, time, and situation. Cranial nerves II-XII grossly intact. Motor strength 5/5 in all extremities. Sensory grossly intact. Cerebellar exam normal. Normal gait. Psych: Awake, alert, with orientation to person, place and time. Behavior, mood, and affect are within normal limits. 04:03 ENT: Mouth: Lips: normal, moist, Oral mucosa: normal, pink and intact, moist, Gums: noted to have cellulitis, reddened, Tongue: is normal, abscess, is not appreciated, drooling, is not appreciated. Vital Signs: 03:38 BP 119 / 68; Pulse 85; Resp 20; Temp 98.8(TE); Pulse Ox 100% on R/A; Weight 77.11 kg ak1 (R); Height 5 ft. 1 in. (154.94 cm) (R); Pain 10/10; 04:31 BP 117 / 73; Pulse 73; Resp 17; Temp 98.8; Pulse Ox 97% on R/A; Pain 8/10; tl1 03:38 Body Mass Index 32.12 (77.11 kg, 154.94 cm) ak1 MDM: 03:34 Patient medically screened. [facility] 04:04 Data reviewed: vital signs, nurses notes, lab test result(s), UPT: negative. [facility] 02/05 04:00 Order name: Urine Test (obtain specimen); Complete Time: 04:14 [facility] Administered Medications: 04:14 Drug: Demerol 50 mg {Note: Rass 0.} Route: IM; Site: right gluteus; tl1 04:34 Follow up: Response: No adverse reaction; Marked relief of symptoms; Pain is decreased; tl1 RASS: Alert and Calm (0) 04:14 Drug: Phenergan 25 mg Route: IM; Site: right gluteus; tl1 04:33 Follow up: Response: No adverse reaction; Marked relief of symptoms; Pain is decreased tl1 04:14 Drug: KeFLEX 500 mg Route: PO; tl1 04:33 Follow up: Response: No adverse reaction; No change in condition tl1 Disposition: 02/05/19 04:05 Discharged to Home. Impression: Dental caries - pain, Dental caries, unspecified. - Condition is Stable. - Discharge Instructions: Dental Caries, Adult, Dental Pain, Dental Pain, [id number], Diet and Dental Disease. - Prescriptions for Keflex 500 mg Oral Capsule - take 1 capsule by ORAL route every 6 hours for 7 days; 28 capsule. Tylenol- Codeine #3 300-30 mg Oral Tablet - take 2 tablet by ORAL route every 6 hours As needed; 30 tablet. - Medication Reconciliation Form, Thank You Letter, Antibiotic Education, Prescription Opioid Use form. - Follow up: Private Physician; When: 2 - 3 days; Reason: Recheck today's complaints, Continuance of care, Re-evaluation by your physician. Follow up: Henok Christianson DDS; When: 1 - 2 days; Reason: Recheck today's complaints, Re-evaluation by your physician. - Problem is new. - Symptoms have improved. Signatures: Hermes Hernandez MD MD cha Lasagna, Tonya, RN RN tl1 Sierra Sandoval RN RN ak1 Corrections: (The following items were deleted from the chart) 04:35 04:05 02/05/2019 04:05 Discharged to Home. Impression: Dental caries - pain; Dental tl1 caries, unspecified. Condition is Stable. Forms are Medication Reconciliation Form, Thank You Letter, Antibiotic Education, Prescription Opioid Use. Follow up: Private Physician; When: 2 - 3 days; Reason: Recheck today's complaints, Continuance of care, Re-evaluation by your physician. Follow up: Henok Christianson; When: 1 - 2 days; Reason: Recheck today's complaints, Re-evaluation by your physician. Problem is new. Symptoms have improved. niki
[2019-02-05] MEDS ORDERED: MEPERIDINE HCL 50 MG/ML ONE (04:08)
[2019-02-05] MEDS ORDERED: PROMETHAZINE 25 MG/ML VIAL ONE (04:09)
[2019-02-05] MEDS ORDERED: CEPHALEXIN 250 MG CAP ONE (04:09)
[2019-02-05 04:45] VITALS: TEMP 98.8
[2019-02-05 04:46] VITALS: BP 117/73; O2SAT 97
== END 2019-02-05 04:35 | disposition home or self-care (01) ==
LOC: ER 03:23
DX: K02.9 Dental caries, unspecified (principal)
CPT/HCPCS: 96372; 99283; J2175; J2550

== ENCOUNTER 2019-03-14 05:04 | Emergency (ER) | payer SELFPAY ==
[2019-03-14] MEDS ORDERED: HYDROCODONE/APAP 10/325 TAB ONE (06:18)
[2019-03-14] MEDS ORDERED: KETOROLAC 30 MG/ML INJ ONE (06:18)
[2019-03-14] MEDS ORDERED: AMOX TR/K CLAV 400MG CHEW TAB PO ONE (06:18)
--- NOTE | 2019-03-14 06:19 | ER ---
Nurse's Notes [facility] Name: Katy Stone Age: 34 yrs Sex: Female : 1985 Arrival Date: 03/14/2019 Time: 05:05 Bed 16 Private MD: Diagnosis: Dental caries Presentation: 03/14 05:19 Presenting complaint: Patient states: she is having a toothache again she was seen at the dentist and told she needs oral surgery and she cannot afford it the pain started yesterday and currently is 10/10 pt was unable to sleep las night. Transition of care: patient was not received from another setting of care. Onset of symptoms was March 13, 2019. Risk Assessment: Do you want to hurt yourself or someone else? Patient reports no desire to harm self or others. Initial Sepsis Screen: Does the patient meet any 2 criteria? No. Patient's initial sepsis screen is negative. Does the patient have a suspected source of infection? No. Patient's initial sepsis screen is negative. Care prior to arrival: None. 05:19 Method Of Arrival: Ambulatory 05:19 Acuity: KIRIT 5 Triage Assessment: 05:30 EENT: Reports toothache. 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 - Social history:: Smoking status: Patient/guardian denies using tobacco. - Ebola Screening: : No symptoms or risks identified at this time. - Family history:: not pertinent. Screenin:30 Abuse screen: Denies threats or abuse. Denies injuries from another. Nutritional screening: No deficits noted. Tuberculosis screening: No symptoms or risk factors identified. Fall Risk None identified. Assessment: 05:30 General: Appears in no apparent distress. uncomfortable, Behavior is calm, cooperative, wh appropriate for age. Pain: Complains of pain in right buccal mucosa Pain does not radiate. Pain currently is 10 out of 10 on a pain scale. Quality of pain is described as aching, Pain began 2-3 days ago. Neuro: Level of Consciousness is awake, alert, obeys commands, Oriented to person, place, time, situation, Appropriate for age. Cardiovascular: Capillary refill < 3 seconds. Respiratory: Airway is patent Respiratory effort is even, unlabored, Respiratory pattern is regular, symmetrical. GI: Abdomen is flat, non-distended. : No signs and/or symptoms were reported regarding the genitourinary system. EENT: Throat is pink. Derm: Skin is intact, is healthy with good turgor, Skin is pink, warm \T\ dry. normal. Musculoskeletal: Circulation, motion, and sensation intact. 06:49 Reassessment: Patient appears in no apparent distress at this time. No changes from previously documented assessment. Patient and/or family updated on plan of care and expected duration. Pain level reassessed. Patient is alert, oriented x 3, equal unlabored respirations, skin warm/dry/pink. Patient states feeling better. Patient states symptoms have improved. Vital Signs: 05:21 BP 133 / 97; Pulse 109; Resp 18 S; Temp 98.3(O); Pulse Ox 99% on R/A; Weight 77.11 kg bb (R); Height 4 ft. 11 in. (149.86 cm); Pain 10/10; 06:30 BP 125 / 81; Pulse 78; Resp 18; Pulse Ox 98% on R/A; wh 05:21 Body Mass Index 34.34 (77.11 kg, 149.86 cm) ED Course: 05:05 Patient arrived in ED. ds1 05:06 Latanya Miguel is Primary Nurse. 05:09 Hermes Hernandez MD is Attending Physician. [facility] 05:20 Triage completed. 05:21 Arm band placed on Patient placed in an exam room, on a stretcher, on pulse oximetry. Family accompanied patient. 05:30 Patient has correct armband on for positive identification. Bed in low position. Call light in reach. Side rails up X 1. Pulse ox on. NIBP on. 06:18 Henok Christianson DDS is Referral Physician. niki 06:51 No provider procedures requiring assistance completed. Patient did not have IV access during this emergency room visit. Administered Medications: 06:25 Drug: [place] 10 mg-325 mg 1 tabs Route: PO; 06:47 Follow up: Response: No adverse reaction; Pain is decreased; RASS: Alert and Calm (0) 06:30 Drug: TORadol 60 mg Route: IM; Site: left gluteus; 06:47 Follow up: Response: No adverse reaction; Pain is decreased 06:35 Drug: Augmentin 875 mg Route: PO; 06:47 Follow up: Response: No adverse reaction Outcome: 06:19 Discharge ordered by . niki 06:52 Discharged to home ambulatory, with family. 06:52 Condition: stable 06:52 Discharge instructions given to patient, family, Instructed on discharge instructions, follow up and referral plans. no drinking with medication, no driving heavy equipment, medication usage, POC Dental Pain Demonstrated understanding of instructions, follow-up care, medications, POC Prescriptions given X 2. 06:52 Patient left the ED. Signatures: Hermes Hernandez MD MD cha Sanford, Demi ds1 Kathie Pinedo, RN RN Latanya Bhatia
--- NOTE | 2019-03-14 06:19 | EDPHYS ---
Physician Documentation [facility] Name: Katy Stone Age: 34 yrs Sex: Female : 1985 Arrival Date: 03/14/2019 Time: 05:05 Bed 16 Private MD: ED Physician Hermes Hernandez HPI: 03/14 06:15 This 34 yrs old Female presents to ER via Ambulatory with complaints of niki Toothache. 06:15 The patient presents with broken tooth/teeth, pain, swelling. The problem is located in [facility] the right buccal mucosa. Onset: The symptoms/episode began/occurred 2 day(s) ago. Duration: The symptoms are continuous, and are steadily getting worse. Modifying factors: The symptoms are alleviated by nothing, the symptoms are aggravated by chewing. Associated signs and symptoms: Pertinent positives:. Severity of symptoms: At their worst the symptoms were mild, in the emergency department the symptoms are unchanged. The patient has not experienced similar symptoms in the past. 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 - Social history:: Smoking status: Patient/guardian denies using tobacco. - Ebola Screening: : No symptoms or risks identified at this time. - Family history:: not pertinent. ROS: 06:15 Constitutional: Negative for fever, chills, and weight loss, Eyes: Negative for injury, niki pain, redness, and discharge, Neck: Negative for injury, pain, and swelling, Cardiovascular: Negative for chest pain, palpitations, and edema, Respiratory: Negative for shortness of breath, cough, wheezing, and pleuritic chest pain, Abdomen/GI: Negative for abdominal pain, nausea, vomiting, diarrhea, and constipation, Back: Negative for injury and pain, : Negative for injury, bleeding, discharge, and swelling, MS/Extremity: Negative for injury and deformity, Skin: Negative for injury, rash, and discoloration, Neuro: Negative for headache, weakness, numbness, tingling, and seizure, Psych: Negative for depression, anxiety, suicide ideation, homicidal ideation, and hallucinations, Allergy/Immunology: Negative for hives, rash, and allergies, Endocrine: Negative for neck swelling, polydipsia, polyuria, polyphagia, and marked weight changes, Hematologic/Lymphatic: Negative for swollen nodes, abnormal bleeding, and unusual bruising. 06:15 ENT: Positive for Teeth pain Exam: 06:15 Constitutional: This is a well developed, well nourished patient who is awake, alert, niki and in no acute distress. Head/Face: Normocephalic, atraumatic. Eyes: Pupils equal round and reactive to light, extra-ocular motions intact. Lids and lashes normal. Conjunctiva and sclera are non-icteric and not injected. Cornea within normal limits. Periorbital areas with no swelling, redness, or edema. Neck: Trachea midline, no thyromegaly or masses palpated, and no cervical lymphadenopathy. Supple, full range of motion without nuchal rigidity, or vertebral point tenderness. No Meningismus. Chest/axilla: Normal chest wall appearance and motion. Nontender with no deformity. No lesions are appreciated. Cardiovascular: Regular rate and rhythm with a normal S1 and S2. No gallops, murmurs, or rubs. Normal PMI, no JVD. No pulse deficits. Respiratory: Lungs have equal breath sounds bilaterally, clear to auscultation and percussion. No rales, rhonchi or wheezes noted. No increased work of breathing, no retractions or nasal flaring. Abdomen/GI: Soft, non-tender, with normal bowel sounds. No distension or tympany. No guarding or rebound. No evidence of tenderness throughout. Back: No spinal tenderness. No costovertebral tenderness. Full range of motion. Skin: Warm, dry with normal turgor. Normal color with no rashes, no lesions, and no evidence of cellulitis. MS/ Extremity: Pulses equal, no cyanosis. Neurovascular intact. Full, normal range of motion. Neuro: Awake and alert, GCS 15, oriented to person, place, time, and situation. Cranial nerves II-XII grossly intact. Motor strength 5/5 in all extremities. Sensory grossly intact. Cerebellar exam normal. Normal gait. Psych: Awake, alert, with orientation to person, place and time. Behavior, mood, and affect are within normal limits. 06:15 ENT: Mouth: Lips: normal, moist, Oral mucosa: normal, pink and intact, Gums: normal with healthy appearance, noted to have cellulitis. Vital Signs: 05:21 BP 133 / 97; Pulse 109; Resp 18 S; Temp 98.3(O); Pulse Ox 99% on R/A; Weight 77.11 kg bb (R); Height 4 ft. 11 in. (149.86 cm); Pain 10/10; 06:30 BP 125 / 81; Pulse 78; Resp 18; Pulse Ox 98% on R/A; wh 05:21 Body Mass Index 34.34 (77.11 kg, 149.86 cm) MDM: 05:09 Patient medically screened. [facility] 06:15 Data reviewed: vital signs, nurses notes, lab test result(s). [facility] 03/14 05:58 Order name: Urine Dipstick-Ancillary (obtain specimen); Complete Time: 06:02 [facility] 03/14 05:58 Order name: Urine Test (obtain specimen); Complete Time: 06:02 [facility] Administered Medications: 06:25 Drug: [place] 10 mg-325 mg 1 tabs Route: PO; 06:47 Follow up: Response: No adverse reaction; Pain is decreased; RASS: Alert and Calm (0) 06:30 Drug: TORadol 60 mg Route: IM; Site: left gluteus; 06:47 Follow up: Response: No adverse reaction; Pain is decreased 06:35 Drug: Augmentin 875 mg Route: PO; 06:47 Follow up: Response: No adverse reaction Disposition: 03/14/19 06:19 Discharged to Home. Impression: Dental caries. - Condition is Stable. - Discharge Instructions: Dental Pain, Dental Pain, [id number]. - Prescriptions for Augmentin 875- 125 mg Oral Tablet - take 1 tablet by ORAL route every 12 hours for 10 days; 20 tablet. Tylenol- Codeine #3 300-30 mg Oral Tablet - take 2 tablets by ORAL route every 6 hours As needed; 24 tablet. - Medication Reconciliation Form, Thank You Letter, Antibiotic Education, Prescription Opioid Use form. - Follow up: Private Physician; When: 2 - 3 days; Reason: Recheck today's complaints, Continuance of care, Re-evaluation by your physician. Follow up: Henok Christianson DDS; When: 2 - 3 days; Reason: Recheck today's complaints, Re-evaluation by your physician. - Problem is new. - Symptoms have improved. Signatures: Hermes Hernandez MD MD cha Ballard, Brenda RN RN Latanya Bhatia Corrections: (The following items were deleted from the chart) 06:52 06:19 03/14/2019 06:19 Discharged to Home. Impression: Dental caries. Condition is wh Stable. Forms are Medication Reconciliation Form, Thank You Letter, Antibiotic Education, Prescription Opioid Use. Follow up: Private Physician; When: 2 - 3 days; Reason: Recheck today's complaints, Continuance of care, Re-evaluation by your physician. Follow up: Henok Christianson; When: 2 - 3 days; Reason: Recheck today's complaints, Re-evaluation by your physician. Problem is new. Symptoms have improved. niki
[2019-03-14 07:01] VITALS: BP 125/81; O2SAT 98
[2019-03-14 07:02] VITALS: TEMP 98.3
== END 2019-03-14 06:52 | disposition home or self-care (01) ==
LOC: ER 05:04
DX: K02.9 Dental caries, unspecified (principal)
CPT/HCPCS: 96372; 99283

== ENCOUNTER 2019-05-12 14:49 | Emergency (ER) | payer SELFPAY ==
--- NOTE | 2019-05-12 15:43 | EDPHYS ---
Physician Documentation [facility] Name: Katy Stone Age: 34 yrs Sex: Female : 1985 Arrival Date: 05/12/2019 Time: 14:53 Bed 11 Private MD: ED Physician Giovani Hull HPI: 05/12 16:40 This 34 yrs old Female presents to ER via Ambulatory with complaints of Ear snw Pain, Headache, Sore Throat. 16:40 The patient presents with pain, severe. The complaints affect the right ear. Onset: The snw symptoms/episode began/occurred worsening over 7 months. Modifying factors: The symptoms are alleviated by nothing. Associated signs and symptoms: Pertinent positives: teeth pain. Severity of symptoms: At their worst the symptoms were moderate severe. It is unknown whether or not the patient has had similar symptoms in the past. saw dentist with referral to [facility], saving money for surgical extraction. 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 - Social history:: Smoking status: Patient uses tobacco products, denies chronic smoking, but will smoke occasionally. - Ebola Screening: : Patient denies travel to an Ebola-affected area in the 21 days before illness onset. ROS: 16:39 Constitutional: Negative for fever, chills, and weight loss, Eyes: Negative for injury, snw pain, redness, and discharge, Neck: Negative for injury, pain, and swelling, Cardiovascular: Negative for chest pain, palpitations, and edema, Respiratory: Negative for shortness of breath, cough, wheezing, and pleuritic chest pain, Abdomen/GI: Negative for abdominal pain, nausea, vomiting, diarrhea, and constipation, Back: Negative for injury and pain, : Negative for injury, bleeding, discharge, and swelling, MS/Extremity: Negative for injury and deformity, Skin: Negative for injury, rash, and discoloration, Neuro: Negative for headache, weakness, numbness, tingling, and seizure. 16:39 ENT: Positive for dental pain, ear pain, Teeth pain worsening over 7 months. Exam: 16:36 Constitutional: This is a well developed, well nourished patient who is awake, alert, snw and in no acute distress. Head/Face: Normocephalic, atraumatic. Eyes: Pupils equal round and reactive to light, extra-ocular motions intact. Lids and lashes normal. Conjunctiva and sclera are non-icteric and not injected. Cornea within normal limits. Periorbital areas with no swelling, redness, or edema. ENT: Nares patent. No nasal discharge, no septal abnormalities noted. Tympanic membranes are normal and external auditory canals are clear. Oropharynx with no redness or masses, exudates, or evidence of obstruction, uvula midline. Mucous membranes moist. + dental tenderness with swollen gingival tissue to right back upper and lower molars with mild right cheek edema Neck: Trachea midline, no thyromegaly or masses palpated, and no cervical lymphadenopathy. Supple, full range of motion without nuchal rigidity, or vertebral point tenderness. No Meningismus. Chest/axilla: Normal chest wall appearance and motion. Nontender with no deformity. No lesions are appreciated. Cardiovascular: Regular rate and rhythm with a normal S1 and S2. No gallops, murmurs, or rubs. Normal PMI, no JVD. No pulse deficits. Respiratory: Lungs have equal breath sounds bilaterally, clear to auscultation and percussion. No rales, rhonchi or wheezes noted. No increased work of breathing, no retractions or nasal flaring. Abdomen/GI: Soft, non-tender, with normal bowel sounds. No distension or tympany. No guarding or rebound. No evidence of tenderness throughout. Back: No spinal tenderness. No costovertebral tenderness. Full range of motion. Skin: Warm, dry with normal turgor. Normal color with no rashes, no lesions, and no evidence of cellulitis. MS/ Extremity: Pulses equal, no cyanosis. Neurovascular intact. Full, normal range of motion. Neuro: Awake and alert, GCS 15, oriented to person, place, time, and situation. Cranial nerves II-XII grossly intact. Motor strength 5/5 in all extremities. Sensory grossly intact. Cerebellar exam normal. Normal gait. Psych: Awake, alert, with orientation to person, place and time. Behavior, mood, and affect are within normal limits. Vital Signs: 15:19 BP 128 / 87; Pulse 95; Resp 18; Temp 97.5; Pulse Ox 100% on R/A; Weight 83.91 kg (R); aj1 Height 5 ft. 1 in. (154.94 cm) (R); Pain 10/10; 15:19 Body Mass Index 34.96 (83.91 kg, 154.94 cm) aj1 MDM: 15:24 Patient medically screened. snw 16:39 Data reviewed: vital signs, nurses notes. Data interpreted: Pulse oximetry: on room air snw is 100 %. Interpretation: normal. Counseling: I had a detailed discussion with the patient and/or guardian regarding: the historical points, exam findings, and any diagnostic results supporting the discharge/admit diagnosis, the need for outpatient follow up, to return to the emergency department if symptoms worsen or persist or if there are any questions or concerns that arise at home. Special discussion: Based on the history and exam findings, there is no indication for further emergent testing or inpatient evaluation. I discussed with the patient/guardian the need to see a dentist for further evaluation of the symptoms. Administered Medications: 16:32 Drug: Bicillin L-A 2.4 million units Route: IM; Site: right ventrogluteal; iw 16:32 Drug: TORadol 30 mg Route: IM; Site: left deltoid; iw Disposition: 17:20 Co-signature as Attending Physician, Giovani Hull MD. rn Disposition: 05/12/19 15:42 Discharged to Home. Impression: Dental root caries. - Condition is Stable. - Discharge Instructions: Dental Caries, Adult, Dental Pain, Root Canal, Diet and Dental Disease, Cryotherapy, Preventive Dental Care, Adult. - Prescriptions for chlorhexidine gluconate 0.12 % Mucous Membrane mouthwash - place 15 milliliter by MUCOUS MEMBRANE route 2 times per day after brushing teeth, swish in mouth for 30 seconds then spit out; 480 milliliter. Tylenol- Codeine #3 300-30 mg Oral Tablet - take 2 tablet by ORAL route every 6 hours As needed; 30 tablet. promethazine 25 mg Oral Tablet - take 1 tablet by ORAL route every 6 hours As needed; 20 tablet. - Medication Reconciliation Form, Thank You Letter, Antibiotic Education, Prescription Opioid Use form. - Follow up: Emergency Department; When: As needed; Reason: Worsening of condition. Follow up: Private Physician; When: 2 - 3 days; Reason: Recheck today's complaints, Continuance of care, Re-evaluation by your physician. Signatures: Ayana Louie RN RN aj1 Nisa Li, SCIENTIFIC ASSOCIATE-C SCIENTIFIC ASSOCIATE-Csnw Amanda Verma RN RN iw Giovani Hull MD MD varnish thinner: (The following items were deleted from the chart) 16:52 15:42 05/12/2019 15:42 Discharged to Home. Impression: Dental root caries. Condition is iw Stable. Forms are Medication Reconciliation Form, Thank You Letter, Antibiotic Education, Prescription Opioid Use. Follow up: Emergency Department; When: As needed; Reason: Worsening of condition. Follow up: Private Physician; When: 2 - 3 days; Reason: Recheck today's complaints, Continuance of care, Re-evaluation by your physician. snw
--- NOTE | 2019-05-12 15:43 | ER ---
Nurse's Notes [facility] Name: Katy Stone Age: 34 yrs Sex: Female : 1985 Arrival Date: 05/12/2019 Time: 14:53 Bed 11 Private MD: Diagnosis: Dental root caries Presentation: 05/12 15:17 Presenting complaint: Patient states: Toothache for the past 8 months, states that she aj1 went to the dentist, and she was told to follow up with an oral surgeon, but she was unable to follow up with him. Now her pain has gotten worse, and her daughter said that she saw pus in the back of her mouth. Transition of care: patient was not received from another setting of care. Onset of symptoms was May 12, 2019. Risk Assessment: Do you want to hurt yourself or someone else? Patient reports no desire to harm self or others. Initial Sepsis Screen: Does the patient meet any 2 criteria? HR > 90 bpm. No. Patient's initial sepsis screen is negative. Does the patient have a suspected source of infection? Yes: Skin breakdown/wound. Care prior to arrival: None. 15:17 Method Of Arrival: Ambulatory [facility] 15:17 Acuity: KIRIT 4 aj1 Triage Assessment: 15:19 General: Appears in no apparent distress. uncomfortable, Behavior is calm, cooperative, aj1 appropriate for age. Pain: Complains of pain in right jaw Pain currently is 10 out of 10 on a pain scale. EENT: Reports right jaw pain. Neuro: Level of Consciousness is awake, alert, obeys commands. Cardiovascular: Patient's skin is warm and dry. Respiratory: Airway is patent Respiratory effort is even, unlabored, Respiratory pattern is regular, symmetrical. 15:20 GI: No signs and/or symptoms were reported involving the gastrointestinal system. : aj1 No signs and/or symptoms were reported regarding the genitourinary system. Derm: No signs and/or symptoms reported regarding the dermatologic system. Skin is pink, warm \T\ dry. normal. Musculoskeletal: No signs and/or symptoms reported regarding the musculoskeletal system. Circulation, motion, and sensation intact. 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 - Social history:: Smoking status: Patient uses tobacco products, denies chronic smoking, but will smoke occasionally. - Ebola Screening: : Patient denies travel to an Ebola-affected area in the 21 days before illness onset. Screenin:21 Abuse screen: Denies threats or abuse. Denies injuries from another. Nutritional aj1 screening: No deficits noted. Tuberculosis screening: No symptoms or risk factors identified. Fall Risk None identified. Assessment: 15:21 Reassessment: see triage assessment. aj1 Vital Signs: 15:19 BP 128 / 87; Pulse 95; Resp 18; Temp 97.5; Pulse Ox 100% on R/A; Weight 83.91 kg (R); aj1 Height 5 ft. 1 in. (154.94 cm) (R); Pain 10/10; 15:19 Body Mass Index 34.96 (83.91 kg, 154.94 cm) aj1 ED Course: 14:53 Patient arrived in ED. rg4 15:18 Triage completed. aj1 15:19 Arm band placed on Patient placed in an exam room. aj1 15:21 Patient has correct armband on for positive identification. aj1 15:21 No provider procedures requiring assistance completed. aj1 15:23 Nisa Li FNP-C [facility]. snw 15:23 Giovani Hull MD is Attending Physician. snw 15:48 Amanda Verma, LUPIS is Primary Nurse. iw 16:41 Patient did not have IV access during this emergency room visit. iw Administered Medications: 16:32 Drug: Bicillin L-A 2.4 million units Route: IM; Site: right ventrogluteal; iw 16:32 Drug: TORadol 30 mg Route: IM; Site: left deltoid; iw Outcome: 15:42 Discharge ordered by . snw 16:51 Discharged to home ambulatory. iw 16:51 Condition: good 16:51 Discharge instructions given to patient, Instructed on discharge instructions, follow up and referral plans. medication usage, Demonstrated understanding of instructions, follow-up care, medications, Prescriptions given X 2. 16:52 Patient left the ED. iw Signatures: Ayana Louie RN RN aj1 Nisa Li, FLIGHT COMMUNICATIONS OFFICER-C FLIGHT COMMUNICATIONS OFFICER-Csnw Amanda Verma, RN RN iw Jered, Kim rg4
[2019-05-12] MEDS ORDERED: KETOROLAC 30 MG/ML INJ ONE (16:19)
[2019-05-12] MEDS ORDERED: PEN G BENZ LA 2.4 MU/4 ML SYRINGE IM ONE (16:20)
[2019-05-12 17:08] VITALS: BP 128/87; TEMP 97.5; O2SAT 100
== END 2019-05-12 16:52 | disposition home or self-care (01) ==
LOC: ER 14:49
DX: K02.7 Dental root caries (principal); Z72.0 Tobacco use
CPT/HCPCS: 96372; 99283; J0561

== ENCOUNTER 2019-06-18 08:31 | Emergency (ER) | payer SELFPAY ==
[2019-06-18] MEDS ORDERED: NA CHLORIDE 0.9% 1,000 ML ONE (09:09)
[2019-06-18 09:23] LABS: Absolute Lymphocytes (CBC) 2.3 K/uL (0.7-4.9); Basophils % 0.5 % (0-1.3); Hematocrit 38.1 % (36.0-45.0); MPV 8.4 fL (7.6-11.3); RBC Red Blood Cell Count 4.24 M/uL (3.86-4.86)
[2019-06-18] MEDS ORDERED: IBUPROFEN 400 MG TAB ONE (09:25)
[2019-06-18 09:37] LABS: BUN Blood Urea Nitrogen 12 mg/dL (7-18); Bicarbonate 26 mmol/L (21-32); Glucose Level 101 mg/dL (74-106); Potassium 4.3 mmol/L (3.5-5.1); Sodium Level 139 mmol/L (136-145)
[2019-06-18 10:19] LABS: Urine Blood TRACE (NEG); Urine Glucose NEGATIVE (NEG); Urine Protein NEGATIVE (NEG)
[2019-06-18] MEDS ORDERED: PEN G BENZ LA 1.2MU/2ML SYRINGE IM ONE (10:19)
--- NOTE | 2019-06-18 10:23 | ER ---
Nurse's Notes [facility] Name: Katy Stone Age: 34 yrs Sex: Female : 1985 Arrival Date: 06/18/2019 Time: 08:34 Bed 2 Private MD: Diagnosis: Streptococcal pharyngitis Presentation: 06/18 08:56 Presenting complaint: Patient states: Headache, dizziness upon standing, chills, and ph nausea x 4 days, denies V/D. Transition of care: patient was not received from another setting of care. Onset of symptoms was June 18, 2019. Risk Assessment: Do you want to hurt yourself or someone else? Patient reports no desire to harm self or others. Initial Sepsis Screen: Does the patient meet any 2 criteria? No. Patient's initial sepsis screen is negative. Does the patient have a suspected source of infection? No. Patient's initial sepsis screen is negative. Care prior to arrival: None. 08:56 Method Of Arrival: Ambulatory 08:56 Acuity: KIRIT 3 ph Triage Assessment: 09:22 Headache History: Denies prior headaches. General: Appears in no apparent distress. ph comfortable, well groomed, Behavior is calm, cooperative, appropriate for age, Reports chills for >3 days, Denies fever. Pain: Complains of pain in right mormon and right jaw Pain currently is 7 out of 10 on a pain scale. Pain began 2-3 days ago. Also complains of nausea. EENT: Reports pain in mouth. Neuro: Level of Consciousness is awake, alert, obeys commands, Oriented to person, place, time, situation, Rotary Shear Operator are equal bilaterally Moves all extremities. Full function Gait is steady, Speech is normal, Facial symmetry appears normal, Pupils are PERRLA, Reports dizziness, headache in right frontal area, weakness in "all over". Cardiovascular: Reports fatigue, lightheadedness, nausea, Denies chest pain, shortness of breath, syncope, Capillary refill < 3 seconds Patient's skin is warm and dry. Respiratory: Airway is patent Respiratory effort is even, unlabored, Respiratory pattern is regular, symmetrical. GI: Reports nausea, Patient currently denies abdominal pain, diarrhea, vomiting. Derm: Skin is intact, is healthy with good turgor, Skin is pink, warm \\T\\ dry. Musculoskeletal: Circulation, motion, and sensation intact. Range of motion: intact in all extremities. BACK SEWER: 10:55 LMP N/A - iw Historical: - Allergies: 08:58 No Known Allergies; ph - PMHx: 08:58 None; ph - PSHx: 08:58 None; ph - Immunization history:: Adult Immunizations unknown. - Coronavirus screen:: The patient has NOT traveled to [place], [place], or [place] in the past 14 days. The patient has NOT had contact with known/suspected case of Coronavirus?. - Social history:: Smoking status: Patient denies any tobacco usage or history of. - Family history:: not pertinent. - Ebola Screening: : No symptoms or risks identified at this time. - Hospitalizations: : No recent hospitalization is reported. Screenin:17 Abuse screen: Denies threats or abuse. Denies injuries from another. Nutritional ph screening: No deficits noted. Tuberculosis screening: No symptoms or risk factors identified. Fall Risk None identified. Assessment: 09:26 General: no change from previously charted assessment, see triage note. ph 10:30 Reassessment: Patient appears in no apparent distress at this time. Patient and/or ph family updated on plan of care and expected duration. Pain level reassessed. Patient is alert, oriented x 3, equal unlabored respirations, skin warm/dry/pink. Awaiting 15 minute shot time prior to d/c. Vital Signs: 08:58 BP 128 / 65; Pulse 78; Resp 18; Temp 97.5; Pulse Ox 100% on R/A; Weight 74.84 kg; ph Height 5 ft. 1 in. (154.94 cm); Pain 7/10; 10:30 BP 122 / 68; Pulse 75; Resp 18; Temp 97.8; Pulse Ox 99% on R/A; ph 08:58 Body Mass Index 31.18 (74.84 kg, 154.94 cm) ph ED Course: 08:34 Patient arrived in ED. mr 08:44 Giovani Hull MD is Attending Physician. rn 08:52 Nusrat Shepherd RN is Primary Nurse. ph 08:58 Triage completed. ph 09:17 Initial lab(s) drawn, by ED staff, sent to lab. Flu and/or RSV swab sent to lab. Strep ph swab sent to lab. Inserted saline lock: 20 gauge in right antecubital area, using aseptic technique. Blood collected. 09:30 Patient has correct armband on for positive identification. Bed in low position. Call ph light in reach. Side rails up X 1. Pulse ox on. NIBP on. Door closed. Noise minimized. Warm blanket given. 10:00 Urine collected: clean catch specimen, clear. dh3 10:38 No provider procedures requiring assistance completed. IV discontinued, intact, ph bleeding controlled, No redness/swelling at site. Pressure dressing applied. 10:38 Arm band placed on. ph Administered Medications: 09:28 Drug: NS 0.9% 1000 ml Route: IV; Rate: 1000 ml; Site: right antecubital; ph 10:32 Follow up: Response: No adverse reaction; IV Status: Completed infusion; IV Intake: ph 1000ml 09:28 Drug: Motrin 800 mg Route: PO; ph 10:32 Follow up: Response: No adverse reaction; Pain is decreased ph 10:31 Drug: Bicillin L-A 1.2 million units Route: IM; Site: right gluteus; ph 10:50 Follow up: Response: No adverse reaction ph Intake: 10:32 IV: 1000ml; Total: 1000ml. ph Outcome: 10:13 Discharge ordered by . rn 10:55 Discharged to home ambulatory, with family. iw 10:55 Condition: good 10:55 Discharge instructions given to patient, family, Instructed on discharge instructions, follow up and referral plans. Demonstrated understanding of instructions, follow-up care. 10:56 Patient left the ED. iw Signatures: Darcie Wilkes Irene, RN RN Giovani Hull MD MD rn Hall, Patricia, RN RN Zohra Amezcua 3 Corrections: (The following items were deleted from the chart) 10:33 10:30 Reassessment: Patient appears in no apparent distress at this time. Patient ph and/or family updated on plan of care and expected duration. Pain level reassessed. Patient is alert, oriented x 3, equal unlabored respirations, skin warm/dry/pink. ph
--- NOTE | 2019-06-18 10:24 | EDPHYS ---
Physician Documentation [facility] Name: Katy Stone Age: 34 yrs Sex: Female : 1985 Arrival Date: 06/18/2019 Time: 08:34 Bed 2 Private MD: ED Physician Giovani Hull HPI: 06/18 08:57 This 34 yrs old Female presents to ER via Unassigned with complaints of rn Dizziness, Headache. 08:57 The patient presents with generalized weakness, lightheadedness. Onset: The rn symptoms/episode began/occurred yesterday. Context: occurred at home, occurred while the patient was sitting, standing. Modifying factors: The symptoms are alleviated by lying down, the symptoms are aggravated by standing up. Severity of symptoms: At their worst the symptoms were mild in the emergency department the symptoms are unchanged. The patient has not experienced similar symptoms in the past. The patient has not recently seen a physician. Reports chills/sweats, lightheaded, worse with change in position, no fever, reports 2 sick contacts recently. + mild headache, no head injury or trauma. NO chest pain/cough/sob. Significant other reports thinks she is dehydrated, she doesn't drink water at all. . DULSER: 10:55 LMP N/A - iw Historical: - Allergies: 08:58 No Known Allergies; ph - PMHx: 08:58 None; ph - PSHx: 08:58 None; ph - Immunization history:: Adult Immunizations unknown. - Coronavirus screen:: The patient has NOT traveled to [place], [place], or [place] in the past 14 days. The patient has NOT had contact with known/suspected case of Coronavirus?. - Social history:: Smoking status: Patient denies any tobacco usage or history of. - Family history:: not pertinent. - Ebola Screening: : No symptoms or risks identified at this time. - Hospitalizations: : No recent hospitalization is reported. ROS: 08:57 Constitutional: + chills Eyes: Negative for injury, pain, redness, and discharge, Neck: rn Negative for injury, pain, and swelling, Cardiovascular: Negative for chest pain, palpitations, and edema, Respiratory: Negative for shortness of breath, cough, wheezing, and pleuritic chest pain, Abdomen/GI: Negative for abdominal pain, nausea, vomiting, diarrhea, and constipation, MS/Extremity: Negative for injury and deformity, Skin: Negative for injury, rash, and discoloration, Neuro: Negative for numbness, tingling, and seizure. Exam: 08:57 Constitutional: This is a well developed, well nourished patient who is awake, alert, yarn examiner skeins to room without difficulty Head/Face: Normocephalic, atraumatic. Eyes: Pupils equal round and reactive to light, extra-ocular motions intact. Lids and lashes normal. Conjunctiva and sclera are non-icteric and not injected. Cornea within normal limits. Periorbital areas with no swelling, redness, or edema. ENT: dry MM Neck: Trachea midline, no thyromegaly or masses palpated, and no cervical lymphadenopathy. Supple, full range of motion without nuchal rigidity, or vertebral point tenderness. No Meningismus. Skin: Warm, dry MS/ Extremity: Pulses equal, no cyanosis. Neurovascular intact. Full, normal range of motion. Equal circumference. Neuro: Awake and alert, GCS 15, oriented to person, place, time, and situation. Cranial nerves II-XII grossly intact. Motor strength 5/5 in all extremities. Sensory grossly intact. Cerebellar exam normal. Normal gait. Vital Signs: 08:58 BP 128 / 65; Pulse 78; Resp 18; Temp 97.5; Pulse Ox 100% on R/A; Weight 74.84 kg; ph Height 5 ft. 1 in. (154.94 cm); Pain 7/10; 10:30 BP 122 / 68; Pulse 75; Resp 18; Temp 97.8; Pulse Ox 99% on R/A; ph 08:58 Body Mass Index 31.18 (74.84 kg, 154.94 cm) ph MDM: 08:44 Patient medically screened. rn 10:11 Differential diagnosis: hypovolemia, idiopathic dizziness, flu, strep. Data reviewed: rn vital signs, nurses notes, lab test result(s), Flu: urinalysis, strep. Counseling: I had a detailed discussion with the patient and/or guardian regarding: the historical points, exam findings, and any diagnostic results supporting the discharge/admit diagnosis, lab results, the need for outpatient follow up, to return to the emergency department if symptoms worsen or persist or if there are any questions or concerns that arise at home. Response to treatment: the patient's symptoms have mildly improved after treatment, and as a result, I will discharge patient. Special discussion: I discussed with the patient/guardian in detail that at this point there is no indication for admission to the hospital. It is understood, however, that if the symptoms persist or worsen the patient needs to return immediately for re-evaluation. 10:13 ED course: Pt requests IM PCN instead of pills. rn 06/18 08:56 Order name: Flu rn 06/18 08:56 Order name: Strep rn 06/18 08:56 Order name: Basic Metabolic Panel rn 06/18 08:56 Order name: CBC with Diff rn 06/18 09:46 Order name: Basic Metabolic Panel; Complete Time: 09:51 EDMS 06/18 09:47 Order name: CBC with Automated Diff; Complete Time: 09:51 EDMS 06/18 09:52 Order name: Group A Streptococcus Rapid Sc EDMS 06/18 09:52 Order name: Influenza Screen (A EDMS 06/18 09:57 Order name: Influenza Screen (A ; Complete Time: 10:10 EDMS 06/18 09:57 Order name: Group A Streptococcus Rapid Sc; Complete Time: 10:10 EDMS 06/18 10:10 Order name: Urine Dipstick--Ancillary (enter results) em1 06/18 10:10 Order name: Urine --Ancillary (enter results) em1 06/18 10:23 Order name: Urine --Ancillary EDMS 06/18 10:23 Order name: Urine Dipstick-Ancillary EDVT 06/18 08:56 Order name: IV Start; Complete Time: 09:17 rn 06/18 08:56 Order name: Urine Test (obtain specimen); Complete Time: 10:02 rn 06/18 08:56 Order name: Urine Dipstick-Ancillary (obtain specimen); Complete Time: 10:02 rn Administered Medications: 09:28 Drug: NS 0.9% 1000 ml Route: IV; Rate: 1000 ml; Site: right antecubital; ph 10:32 Follow up: Response: No adverse reaction; IV Status: Completed infusion; IV Intake: ph 1000ml 09:28 Drug: Motrin 800 mg Route: PO; ph 10:32 Follow up: Response: No adverse reaction; Pain is decreased ph 10:31 Drug: Bicillin L-A 1.2 million units Route: IM; Site: right gluteus; ph 10:50 Follow up: Response: No adverse reaction ph Disposition: 06/18/19 10:13 Discharged to Home. Impression: Streptococcal pharyngitis. - Condition is Stable. - Discharge Instructions: Pharyngitis, Strep Throat. - Medication Reconciliation Form, Thank You Letter, Antibiotic Education, Prescription Opioid Use, Work release form form. - Follow up: Private Physician; When: As needed; Reason: Recheck today's complaints, Re-evaluation by your physician. - Problem is new. - Symptoms have improved. Signatures: Dispatcher [employer] EDAmanda Lim RN RN iw Giovani Hull MD MD rn Hall, Patricia, RN RN ph Corrections: (The following items were deleted from the chart) 10:56 10:13 06/18/2019 10:13 Discharged to Home. Impression: Streptococcal pharyngitis. iw Condition is Stable. Forms are Medication Reconciliation Form, Thank You Letter, Antibiotic Education, Prescription Opioid Use. Follow up: Private Physician; When: As needed; Reason: Recheck today's complaints, Re-evaluation by your physician. Problem is new. Symptoms have improved. rn
[2019-06-18 11:39] VITALS: BP 122/68; TEMP 97.8; O2SAT 99
== END 2019-06-18 10:56 | disposition home or self-care (01) ==
LOC: ER 08:31
DX: J02.0 Streptococcal pharyngitis (principal)
CPT/HCPCS: 36415; 80048; 81003; 81025; 85025; 87081; 87804; 96360; 96372; 99284; J0561; J7030

== ENCOUNTER 2019-06-30 23:21 | Emergency (ER) | payer SELFPAY ==
--- NOTE | 2019-07-01 00:30 | EDPHYS ---
Physician Documentation [facility] Name: Katy Stone Age: 34 yrs Sex: Female : 1985 Arrival Date: 06/30/2019 Time: 23:26 Bed 26 Private MD: ED Physician Hermes Hernandez HPI: 07/01 00:22 This 34 yrs old Female presents to ER via Ambulatory with complaints of snw Toothache, Ear Pain. 00:22 The patient presents with broken tooth/teeth, pain. The problem is located in the upper snw right third molar (#1). Onset: The symptoms/episode began/occurred suddenly, and became worse just prior to arrival. Duration: The symptoms are continuous. Modifying factors: The symptoms are alleviated by nothing. Severity of symptoms: At their worst the symptoms were severe. The patient has experienced a previous episode. Saw Dentist and was placed on Amoxil yesterday. Pt states she got out of the shower and had sudden increase in dental pain with radiation to right ear. 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 - Coronavirus screen:: The patient has NOT traveled to [place] in the past 14 days. Proceed with normal triage process as indicated. - Social history:: Smoking status: Patient denies any tobacco usage or history of. - Ebola Screening: : No symptoms or risks identified at this time. ROS: 07/01 00:22 Constitutional: Negative for fever, chills, and weight loss, Eyes: Negative for injury, snw pain, redness, and discharge, Neck: Negative for injury, pain, and swelling, Cardiovascular: Negative for chest pain, palpitations, and edema, Respiratory: Negative for shortness of breath, cough, wheezing, and pleuritic chest pain, Abdomen/GI: Negative for abdominal pain, nausea, vomiting, diarrhea, and constipation, Back: Negative for injury and pain, : Negative for injury, bleeding, discharge, and swelling, MS/Extremity: Negative for injury and deformity, Skin: Negative for injury, rash, and discoloration, Neuro: Negative for headache, weakness, numbness, tingling, and seizure, Psych: Negative for depression, anxiety, suicide ideation, homicidal ideation, and hallucinations. ENT: Positive for dental pain, ear pain. Exam: 00:21 Constitutional: This is a well developed, well nourished patient who is awake, alert, snw and in no acute distress. Head/Face: Normocephalic, atraumatic. Eyes: Pupils equal round and reactive to light, extra-ocular motions intact. Lids and lashes normal. Conjunctiva and sclera are non-icteric and not injected. Cornea within normal limits. Periorbital areas with no swelling, redness, or edema. Neck: Trachea midline, no thyromegaly or masses palpated, and no cervical lymphadenopathy. Supple, full range of motion without nuchal rigidity, or vertebral point tenderness. No Meningismus. Chest/axilla: Normal chest wall appearance and motion. Nontender with no deformity. No lesions are appreciated. Cardiovascular: Regular rate and rhythm with a normal S1 and S2. No gallops, murmurs, or rubs. Normal PMI, no JVD. No pulse deficits. Respiratory: Lungs have equal breath sounds bilaterally, clear to auscultation and percussion. No rales, rhonchi or wheezes noted. No increased work of breathing, no retractions or nasal flaring. Abdomen/GI: Soft, non-tender, with normal bowel sounds. No distension or tympany. No guarding or rebound. No evidence of tenderness throughout. Back: No spinal tenderness. No costovertebral tenderness. Full range of motion. Skin: Warm, dry with normal turgor. Normal color with no rashes, no lesions, and no evidence of cellulitis. MS/ Extremity: Pulses equal, no cyanosis. Neurovascular intact. Full, normal range of motion. Neuro: Awake and alert, GCS 15, oriented to person, place, time, and situation. Cranial nerves II-XII grossly intact. Motor strength 5/5 in all extremities. Sensory grossly intact. Cerebellar exam normal. Normal gait. Psych: Awake, alert, with orientation to person, place and time. Behavior, mood, and affect are within normal limits. 00:21 ENT: External ear(s): are unremarkable, Ear canal(s): are normal, TM's: are normal, Nose: is normal, Mouth: is normal, Posterior pharynx: is normal, Dental exam: dental caries, that is mild, that is moderate, specifically in the upper right third molar (#1). Vital Signs: 06/30 23:43 BP 130 / 90; Pulse 88; Resp 18; Temp 97.2; Pulse Ox 99% on R/A; Weight 74.84 kg; Height aa1 5 ft. 1 in. (154.94 cm); Pain 10/10; 07/01 00:59 BP 120 / 86; Pulse 80; Resp 14; Temp 97.4; Pulse Ox 96% on R/A; Pain 7/10; ls4 06/30 23:43 Body Mass Index 31.18 (74.84 kg, 154.94 cm) aa1 MDM: 00:00 Patient medically screened. niki 00:30 Data reviewed: vital signs, nurses notes. Counseling: I had a detailed discussion with snw the patient and/or guardian regarding: the historical points, exam findings, and any diagnostic results supporting the discharge/admit diagnosis, the presence of at least one elevated blood pressure reading (>120/80) during this emergency department visit, the need for outpatient follow up, to return to the emergency department if symptoms worsen or persist or if there are any questions or concerns that arise at home. Special discussion: I have referred the patient to see his PCP for further evaluation of high blood pressure. Based on the history and exam findings, there is no indication for further emergent testing or inpatient evaluation. I discussed with the patient/guardian the need to see a dentist for further evaluation of the symptoms. I discussed with the patient/guardian the need to see the primary care provider for further evaluation of the symptoms. Administered Medications: 00:30 Drug: TORadol 60 mg Route: IM; Site: left deltoid; ls4 00:30 Drug: Viscous Lidocaine Liquid (4 %) 10 ml Route: Mucous Membrane; ls4 00:55 Drug: [place] 5 mg-325 mg 1 tabs Route: PO; ls4 Disposition: 08:56 Co-signature as Attending Physician, Hermes Hernandez MD I agree with the assessment and [facility] plan of care. Disposition: 07/01/19 00:29 Discharged to Home. Impression: Dental caries, Otalgia, right ear. - Condition is Stable. - Discharge Instructions: Dental Caries, Adult, Dental Pain. - Prescriptions for Diclofenac Sodium 75 mg Oral Tablet Sustained Release - take 1 tablet by ORAL route 2 times per day; 30 tablet. promethazine 25 mg Oral Tablet - take 1 tablet by ORAL route every 6 hours As needed; 20 tablet. - Work release form, Medication Reconciliation Form, Thank You Letter, Antibiotic Education, Prescription Opioid Use form. - Follow up: Emergency Department; When: As needed; Reason: Worsening of condition. Follow up: Private Physician; When: 1 - 2 days; Reason: Recheck today's complaints, Continuance of care, Re-evaluation by your physician. Signatures: Korin Head, RN RN Hermes Mahan MD MD cha Therrien, Shelly, GARY-C AGRICULTURAL RESEARCH ENGINEER-Csnw Sue Zaidi RN RN ls4 Corrections: (The following items were deleted from the chart) 01:34 00:29 07/01/2019 00:29 Discharged to Home. Impression: Dental caries; Otalgia, right ls4 ear. Condition is Stable. Forms are Medication Reconciliation Form, Thank You Letter, Antibiotic Education, Prescription Opioid Use. Follow up: Emergency Department; When: As needed; Reason: Worsening of condition. Follow up: Private Physician; When: 1 - 2 days; Reason: Recheck today's complaints, Continuance of care, Re-evaluation by your physician. snw
--- NOTE | 2019-07-01 00:30 | ER ---
Nurse's Notes [facility] Name: Katy Stone Age: 34 yrs Sex: Female : 1985 Arrival Date: 06/30/2019 Time: 23:26 Bed 26 Private MD: Diagnosis: Dental caries;Otalgia, right ear Presentation: 06/30 23:39 Presenting complaint: Patient states: she has been having issues with her teeth lately aa1 and was seen by a dentist yesterday and was given clindamycin and told she needed to have a cavity filled and wisdom tooth removed but tonight she started having severe pain to the R side of her face that radiates to her R ear. States last time this happened she came here and was given a shot of toradol which helped. Transition of care: patient was not received from another setting of care. Onset of symptoms was June 30, 2019. Risk Assessment: Do you want to hurt yourself or someone else? Patient reports no desire to harm self or others. Initial Sepsis Screen: Does the patient meet any 2 criteria? No. Patient's initial sepsis screen is negative. Does the patient have a suspected source of infection? No. Patient's initial sepsis screen is negative. Care prior to arrival: None. 23:39 Method Of Arrival: Ambulatory aa1 23:39 Acuity: KIRIT 4 aa1 Triage Assessment: 23:32 Pain: Complains of pain in right cheek and right jaw Pain currently is 10 out of 10 on ls4 a pain scale. EENT: Reports pain in gums and right buccal mucosa. Neuro: No deficits noted. Cardiovascular: No deficits noted. Respiratory: No deficits noted. GI: No deficits noted. 23:43 General: Appears in no apparent distress. uncomfortable, Behavior is calm, cooperative, aa1 appropriate for age. 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 - Coronavirus screen:: The patient has NOT traveled to [place] in the past 14 days. Proceed with normal triage process as indicated. - Social history:: Smoking status: Patient denies any tobacco usage or history of. - Ebola Screening: : No symptoms or risks identified at this time. Screenin/19 00:00 Abuse screen: Denies threats or abuse. Denies injuries from another. Nutritional ls4 screening: No deficits noted. Tuberculosis screening: No symptoms or risk factors identified. Fall Risk None identified. Assessment: 01:00 Reassessment: Patient and/or family updated on plan of care and expected duration. Pain ls4 level reassessed. Patient is alert, oriented x 3, equal unlabored respirations, skin warm/dry/pink. Patient states symptoms have improved. 01:01 General: see triage assessment . ls4 Vital Signs: 06/30 23:43 BP 130 / 90; Pulse 88; Resp 18; Temp 97.2; Pulse Ox 99% on R/A; Weight 74.84 kg; Height aa1 5 ft. 1 in. (154.94 cm); Pain 10/10; 07/01 00:59 BP 120 / 86; Pulse 80; Resp 14; Temp 97.4; Pulse Ox 96% on R/A; Pain 7/10; ls4 06/30 23:43 Body Mass Index 31.18 (74.84 kg, 154.94 cm) aa1 ED Course: 06/30 23:26 Patient arrived in ED. jg7 23:32 Arm band placed on. ls4 23:43 Triage completed. aa1 23:58 Sue Zaidi, LUPIS is Primary Nurse. ls4 23:58 Nisa Li [facility]-C [facility]. snw 23:59 Hermes Hernandez MD is Attending Physician. snw 07/01 00:00 Patient has correct armband on for positive identification. Bed in low position. Call ls4 light in reach. Side rails up X 1. 00:00 No provider procedures requiring assistance completed. ls4 01:02 Patient did not have IV access during this emergency room visit. ls4 Administered Medications: 00:30 Drug: TORadol 60 mg Route: IM; Site: left deltoid; ls4 00:30 Drug: Viscous Lidocaine Liquid (4 %) 10 ml Route: Mucous Membrane; ls4 00:55 Drug: [place] 5 mg-325 mg 1 tabs Route: PO; ls4 Outcome: 00:29 Discharge ordered by . snw 01:01 Discharged to home ambulatory, with family. ls4 01:01 Condition: stable 01:01 Discharge instructions given to patient, family, Instructed on discharge instructions, follow up and referral plans. medication usage, Demonstrated understanding of instructions, follow-up care, medications. 01:34 Patient left the ED. ls4 Signatures: Korin Head RN RN aa1 Nisa Li, WATERPROOFING MACHINE OPERATOR-C WATERPROOFING MACHINE OPERATOR-Csnw Sue Zaidi RN RN ls4 Meredith Lunag7
[2019-07-01] MEDS ORDERED: KETOROLAC 30 MG/ML INJ ONE (00:31)
[2019-07-01] MEDS ORDERED: LIDOCAINE VISCOUS 2% SOLN 15 ML UDC ONE (00:31)
[2019-07-01] MEDS ORDERED: HYDROCODONE/APAP 5/325 MG TAB ONE (00:56)
[2019-07-01 01:46] VITALS: BP 120/86; TEMP 97.4; O2SAT 96
== END 2019-07-01 01:34 | disposition home or self-care (01) ==
LOC: ER 23:21
DX: K02.9 Dental caries, unspecified (principal); H92.01 Otalgia, right ear
CPT/HCPCS: 96372; 99283

== ENCOUNTER 2019-09-17 11:53 | Emergency (ER) | payer SELFPAY ==
[2019-09-17] MEDS ORDERED: HYDROCODONE/APAP 7.5/325 MG TAB ONE (12:59)
[2019-09-17] MEDS ORDERED: KETOROLAC 30 MG/ML INJ ONE (12:59)
--- NOTE | 2019-09-17 13:30 | RAD REPORT ---
EXAM DESCRIPTION: RAD - Ankle Right 3 View - 09/17/2019 1:22 pm CLINICAL HISTORY: PAIN, ankle pain, twisting injury COMPARISON: No comparisons FINDINGS: No fracture, dislocation or periosteal reaction. No joint effusion seen. No joint space na rrowing. Ankle soft tissues are mildly prominent. IMPRESSION: Mild ankle soft tissue swelling. No fracture identified.
--- NOTE | 2019-09-17 14:41 | EDPHYS ---
Physician Documentation [facility] Name: Katy Stone Age: 34 yrs Sex: Female : 1985 Arrival Date: 09/17/2019 Time: 11:55 Bed 18 Private MD: ED Physician Akil Pearce HPI: 09/16 18:05 This 34 yrs old Female presents to ER via Wheelchair with complaints of Ankle kdr Injury. 18:05 The patient presents with decreased range of motion, a deformity, an injury, pain. The kdr complaints affect the right ankle. Onset: The symptoms/episode began/occurred suddenly, just prior to arrival. Context: The problem was sustained at home, resulted from a mis-step by the patient, The mechanism of injury involved inversion of the affected ankle. The patient is unable to bear weight. The patient is not able to ambulate. Associated signs and symptoms: The patient has no apparent associated signs or symptoms. Modifying factors: The symptoms are alleviated by nothing, the symptoms are aggravated by weight bearing, movement. Severity of symptoms: At their worst the symptoms were moderate, in the emergency department the symptoms are unchanged. The patient has not experienced similar symptoms in the past. The patient has not recently seen a physician. 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 - Social history:: Smoking status: Patient/guardian denies using. ROS: 18:05 Constitutional: Negative for fever, chills, and weight loss, Eyes: Negative for injury, kdr pain, redness, and discharge, Back: Negative for injury and pain. 18:05 MS/extremity: Positive for decreased range of motion, pain, swelling, tenderness, of the right ankle, right Achilles and anterior aspect of right ankle. Exam: 18:05 Constitutional: This is a well developed, well nourished patient who is awake, alert, kdr and in no acute distress. 18:05 Musculoskeletal/extremity: Extremities: grossly normal except: noted in the right ankle and anterior aspect of right ankle: decreased ROM, pain, swelling, tenderness. Vital Signs: 12:20 BP 131 / 62; Pulse 91; Resp 16; Temp 98.9; Pulse Ox 99% on R/A; Weight 77.11 kg; Height iw 5 ft. 1 in. (154.94 cm); Pain 10/10; 13:22 BP 130 / 62; Pulse 87; Resp 16; Pulse Ox 100% ; rb1 14:20 BP 128 / 61; Pulse 78; Resp 16; Pulse Ox 99% on R/A; Pain 4/10; rb1 12:20 Body Mass Index 32.12 (77.11 kg, 154.94 cm) iw MDM: 14:41 Patient medically screened. kdr 18:08 Data reviewed: vital signs, nurses notes, radiologic studies. Counseling: I had a kdr detailed discussion with the patient and/or guardian regarding: the historical points, exam findings, and any diagnostic results supporting the discharge/admit diagnosis, radiology results, the need for outpatient follow up. 09/16 14:05 Order name: Strep rb1 09/16 14:29 Order name: Throat Culture EDMS 09/16 12:44 Order name: Ankle Right 3 View XRAY rb1 09/16 14:20 Order name: Crutches; Complete Time: 14:34 rb1 09/16 14:20 Order name: Aircast Ankle Splint; Complete Time: 15:05 rb1 Administered Medications: 12:56 Drug: TORadol - Ketorolac 15 mg Route: IM; Site: right deltoid; rb1 13:11 Follow up: Response: No adverse reaction; Pain is decreased rb1 12:56 Drug: [place] (7.5 mg-325 mg) 1 tabs Route: PO; rb1 13:40 Follow up: Response: No adverse reaction; Pain is decreased rb1 Disposition: 09/17/19 14:41 Discharged to Home. Impression: Sprain of ankle - right. - Condition is Stable. - Discharge Instructions: Crutch Use, [id number], Ankle Sprain, [id number]. - Prescriptions for Tramadol 50 mg Oral Tablet - take 1 tablet by ORAL route every 8 hours as needed; 12 tablet. - Medication Reconciliation Form, Thank You Letter, Prescription Opioid Use, Work release form form. - Follow up: Brayan Wolf MD; When: 2 - 3 days; Reason: If symptoms return, Further diagnostic work-up, Recheck today's complaints, Continuance of care, Re-evaluation by your physician. - Problem is new. - Symptoms have improved. Signatures: Dispatcher [employer] EDAkil Pool MD MD kdr Amanda Verma RN RN iw Cecilia Pineda RN RN rb1 Corrections: (The following items were deleted from the chart) 15:01 14:41 09/17/2019 14:41 Discharged to Home. Impression: Sprain of ankle - right. rb1 Condition is Stable. Forms are Work release form, Medication Reconciliation Form, Thank You Letter, Antibiotic Education, Prescription Opioid Use. Follow up: Dr. Brayan Wolf; When: 2 - 3 days; Reason: If symptoms return, Further diagnostic work-up, Recheck today's complaints, Continuance of care, Re-evaluation by your physician. Problem is new. Symptoms have improved. kdr
--- NOTE | 2019-09-17 14:41 | ER ---
Nurse's Notes [facility] Name: Katy Stone Age: 34 yrs Sex: Female : 1985 Arrival Date: 09/17/2019 Time: 11:55 Bed 18 Private MD: Diagnosis: Sprain of ankle-right Presentation: 09/16 12:20 Chief complaint: Patient states: sprained her right ankle on Saturday, re-injured same iw foot today, felt a pop in foot. Coronavirus screen: Proceed with normal triage. Patient reports a cough. Patient denies shortness of breath or difficulty breathing. Patient denies measured and/or subjective temperature greater than 100.4F prior to today's visit. Patient denies travel on a cruise ship or to a country the [facility] currently lists as an affected area. Patient denies contact with known and/or suspected case of COVID-19. Ebola Screen: Patient negative for fever greater than or equal to 101.5 degrees Fahrenheit, and additional compatible Ebola Virus Disease symptoms Patient denies exposure to infectious person. Patient denies travel to an Ebola-affected area in the 21 days before illness onset. No symptoms or risks identified at this time. Initial Sepsis Screen: Does the patient meet any 2 criteria? No. Patient's initial sepsis screen is negative. Does the patient have a suspected source of infection? No. Patient's initial sepsis screen is negative. Risk Assessment: Do you want to hurt yourself or someone else? Patient reports no desire to harm self or others. Note pt also states her throat has been itchy and has a cough, her son was just diagnosed with strep throat. Onset of symptoms was September 17, 2019. 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 - Social history:: Smoking status: Patient/guardian denies using. Screenin:25 Abuse screen: Denies threats or abuse. Nutritional screening: No deficits noted. rb1 Tuberculosis screening: No symptoms or risk factors identified. Fall Risk Fall in past 12 months (25 points). Secondary diagnosis (15 points) impaired mobility, No IV (0 pts). Ambulatory Aid- None/Bed Rest/Nurse Assist (0 pts). Gait- Impaired (20 pts.). Mental Status- Oriented to own ability (0 pts). Total [place] Fall Scale indicates High Risk Score (45 or more points). Fall prevention measures have been instituted. Side Rails Up X 2 Placed Close to Nursing Station 1:1 Attendant Assigned Frequent Obs/Assessments Occuring As available patient and family educated on Fall Prevention Program and Strategies. Assessment: 12:25 General: Appears distressed, Behavior is crying, Denies fever. Pain: Complains of pain rb1 in right ankle Pain currently is 10 out of 10 on a pain scale. Pain began today Aggravated by weight bearing. Neuro: Level of Consciousness is awake, alert, obeys commands, Oriented to person, place, time, situation. Cardiovascular: Capillary refill < 3 seconds in bilateral toes Patient's skin is warm and dry. Respiratory: Airway is patent Respiratory effort is even, unlabored, Respiratory pattern is regular, symmetrical. GI: No signs and/or symptoms were reported involving the gastrointestinal system. : No signs and/or symptoms were reported regarding the genitourinary system. EENT: Throat sore, itchy throat. Son recently diagnosed with strep throat. Derm: Skin is pink, warm \T\ dry. Musculoskeletal: Range of motion: limited in right ankle Swelling present in right ankle. 13:22 Reassessment: Patient appears in no apparent distress at this time. Patient and/or rb1 family updated on plan of care and expected duration. Pain level reassessed. Patient is alert, oriented x 3, equal unlabored respirations, skin warm/dry/pink. 14:23 Reassessment: Patient appears in no apparent distress at this time. No changes from rb1 previously documented assessment. Vital Signs: 12:20 BP 131 / 62; Pulse 91; Resp 16; Temp 98.9; Pulse Ox 99% on R/A; Weight 77.11 kg; Height iw 5 ft. 1 in. (154.94 cm); Pain 10/10; 13:22 BP 130 / 62; Pulse 87; Resp 16; Pulse Ox 100% ; rb1 14:20 BP 128 / 61; Pulse 78; Resp 16; Pulse Ox 99% on R/A; Pain 4/10; rb1 12:20 Body Mass Index 32.12 (77.11 kg, 154.94 cm) ED Course: 11:55 Patient arrived in ED. ag5 12:22 Triage completed. iw 12:25 Patient has correct armband on for positive identification. Bed in low position. Call rb1 light in reach. Side rails up X 1. Pulse ox on. NIBP on. 12:25 Arm band placed on right wrist. rb1 12:27 Cecilia Pineda, RN is Primary Nurse. rb1 12:34 Akil Pearce MD is Attending Physician. kdr 13:23 Ankle Right 3 View XRAY In Process Unspecified. EDMS 14:40 Brayan Wolf MD is Referral Physician. kdr 15:01 No provider procedures requiring assistance completed. Patient did not have IV access rb1 during this emergency room visit. Administered Medications: 12:56 Drug: TORadol - Ketorolac 15 mg Route: IM; Site: right deltoid; rb1 13:11 Follow up: Response: No adverse reaction; Pain is decreased rb1 12:56 Drug: Chester (7.5 mg-325 mg) 1 tabs Route: PO; rb1 13:40 Follow up: Response: No adverse reaction; Pain is decreased rb1 Outcome: 14:41 Discharge ordered by . kdr 15:01 Patient left the ED. rb1 15:01 Discharged to home via wheelchair, with crutches. rb1 15:01 Condition: stable 15:01 Discharge instructions given to patient, Instructed on discharge instructions, follow up and referral plans. medication usage, Demonstrated understanding of instructions, follow-up care, medications, Prescriptions given X 1. Signatures: Dispatcher [employer] EDMS Akil Pearce MD MD kdr Amanda Verma RN RN Cecilia Pineda, LUPIS RN [facility] Niki Piña ag5
[2019-09-18 03:24] VITALS: BP 131/62; TEMP 98.9; O2SAT 99
== END 2019-09-17 15:01 | disposition home or self-care (01) ==
LOC: ER 11:53
DX: S93.401A Sprain of unspecified ligament of right ankle, initial encounter (principal); X58.XXXA Exposure to other specified factors, initial encounter; Y93.9 Activity, unspecified; Y92.009 Unspecified place in unspecified non-institutional (private) residence as the place of occurrence of the external cause
CPT/HCPCS: 87070; 87081; 96372; 99284

== ENCOUNTER 2019-11-26 08:19 | Emergency (ER) | payer SELFPAY ==
--- NOTE | 2019-11-26 09:16 | ER ---
Nurse's Notes [facility] Name: Katy Stone Age: 34 yrs Sex: Female : 1985 Arrival Date: 11/26/2019 Time: 08:19 Bed 19 Private MD: Diagnosis: Strain of muscle, fascia and tendon of lower back;Strain of muscle and tendon of back wall of thorax Presentation: 11/25 09:04 Chief complaint: Patient states: was lifting some heavy boxes the other day, last night iw woke up with mid back pain radiating up to shoulders. Coronavirus screen: Proceed with normal triage. Patient denies a cough. Patient denies shortness of breath or difficulty breathing. Patient denies measured and/or subjective temperature greater than 100.4F prior to today's visit. Patient denies travel on a cruise ship or to a country the [facility] currently lists as an affected area. Patient denies contact with known and/or suspected case of COVID-19. Ebola Screen: Patient negative for fever greater than or equal to 101.5 degrees Fahrenheit, and additional compatible Ebola Virus Disease symptoms Patient denies exposure to infectious person. Patient denies travel to an Ebola-affected area in the 21 days before illness onset. No symptoms or risks identified at this time. Initial Sepsis Screen: Does the patient meet any 2 criteria? No. Patient's initial sepsis screen is negative. Does the patient have a suspected source of infection? No. Patient's initial sepsis screen is negative. Risk Assessment: Do you want to hurt yourself or someone else? Patient reports no desire to harm self or others. Onset of symptoms was November 25, 2019. 09:04 Method Of Arrival: Ambulatory iw 09:04 Acuity: KIRIT 4 iw Historical: - Allergies: 09:07 No Known Allergies; iw - Home Meds: 09:07 None [Active]; iw - PSHx: 09:07 None; iw - Immunization history:: Adult Immunizations unknown. - Social history:: Smoking status: Patient denies any tobacco usage or history of. Screenin:27 Abuse screen: Denies threats or abuse. Nutritional screening: No deficits noted. em Tuberculosis screening: No symptoms or risk factors identified. Fall Risk None identified. Assessment: 09:17 General: Appears in no apparent distress. uncomfortable, Behavior is calm, cooperative, em appropriate for age, Denies fever. Pain: Complains of pain in right low back and right mid back and left mid back and left low back and right scapular area and left scapular area. Neuro: Level of Consciousness is awake, alert, obeys commands, Oriented to person, place, time, situation, Appropriate for age. Cardiovascular: Capillary refill < 3 seconds Patient's skin is warm and dry. Respiratory: Airway is patent Respiratory effort is even, unlabored, Respiratory pattern is regular, symmetrical. Derm: Skin is intact, is healthy with good turgor, Skin is pink, warm \T\ dry. Musculoskeletal: Capillary refill < 3 seconds, Range of motion: intact in all extremities. Vital Signs: 09:04 BP 122 / 88; Pulse 84; Resp 16 S; Temp 97.7; Pulse Ox 100% on R/A; Weight 86.18 kg; iw Height 5 ft. 1 in. (154.94 cm); Pain 7/10; 09:04 Body Mass Index 35.90 (86.18 kg, 154.94 cm) ED Course: 08:19 Patient arrived in ED. ag5 08:24 Romeo Dean PA is PHCP. cuate 08:24 Hermes Hernandez MD is Attending Physician. [facility] 09:01 Taras Ragnel, RN is Primary Nurse. em 09:06 Triage completed. iw 09:08 Arm band placed on. iw 09:17 Patient has correct armband on for positive identification. Bed in low position. Call em light in reach. Pulse ox on. NIBP on. 09:27 No provider procedures requiring assistance completed. Patient did not have IV access em during this emergency room visit. Administered Medications: No medications were administered Outcome: 09:15 Discharge ordered by . [facility] 09:29 Discharged to home ambulatory. em 09:29 Condition: good 09:29 Discharge instructions given to patient, Instructed on discharge instructions, follow up and referral plans. medication usage, Demonstrated understanding of instructions, follow-up care, medications, Prescriptions given X 2. 09:29 Patient left the ED. em Signatures: Romeo Dean PA PA Taras Angulo, RN RN Amanda Verma RN RN Niki Piña ag5
--- NOTE | 2019-11-26 09:16 | EDPHYS ---
Physician Documentation [facility] Name: Katy Stone Age: 34 yrs Sex: Female : 1985 Arrival Date: 11/26/2019 Time: 08:19 Bed 19 Private MD: ED Physician Hermes Hernandez HPI: 11/25 09:04 This 34 yrs old Female presents to ER via Unassigned with complaints of Back jmm Pain. 09:04 The patient presents with pain that is acute. Onset: The symptoms/episode jmm began/occurred gradually, 1 day(s) ago. The pain radiates to the left scapular area, right scapular area, left low back, left mid back, right mid back and right low back. The problem was sustained when lifting. This is a 34 year old female with a history of DM that presents to the ED with complaints of back pain. Patient states she awoke yesterday with diffuse back pain. Patient states she performed heavy lifting at work the day before. Denies fever, vomiting. . Historical: - Allergies: 09:07 No Known Allergies; iw - Home Meds: 09:07 None [Active]; iw - PSHx: 09:07 None; iw - Immunization history:: Adult Immunizations unknown. - Social history:: Smoking status: Patient denies any tobacco usage or history of. ROS: 09:04 Constitutional: Negative for fever, chills, and weight loss, Cardiovascular: Negative jmm for chest pain, palpitations, and edema, Respiratory: Negative for shortness of breath, cough, wheezing, and pleuritic chest pain. 09:04 Back: Positive for flank pain. 09:04 All other systems are negative. Exam: 09:04 Head/Face: atraumatic. Eyes: EOMI, no conjunctival erythema appreciated ENT: Moist jmm Mucus Membranes Neck: Trachea midline, Supple Chest/axilla: Normal chest wall appearance and motion. Cardiovascular: Regular rate and rhythm. No edema appreciated Respiratory: Normal respirations, no respiratory distress appreciated Abdomen/GI: Non distended, soft Skin: General appearance color normal MS/ Extremity: Moves all extremities, no obvious deformities appreciated, no edema noted to the lower extremities Neuro: Awake and alert, normal gait Psych: Behavior is normal, Mood is normal, Patient is cooperative and pleasant 09:04 Constitutional: The patient appears alert, awake, uncomfortable. 09:04 Back: diffuse thoracic back pain and lumbar pain, no midline tenderness. Vital Signs: 09:04 BP 122 / 88; Pulse 84; Resp 16 S; Temp 97.7; Pulse Ox 100% on R/A; Weight 86.18 kg; iw Height 5 ft. 1 in. (154.94 cm); Pain 7/10; 09:04 Body Mass Index 35.90 (86.18 kg, 154.94 cm) iw MDM: 08:54 Patient medically screened. [facility] 09:04 Data reviewed: vital signs, nurses notes. Counseling: I had a detailed discussion with edwin the patient and/or guardian regarding: the historical points, exam findings, and any diagnostic results supporting the discharge/admit diagnosis, the need for outpatient follow up, to return to the emergency department if symptoms worsen or persist or if there are any questions or concerns that arise at home. ED course: Pain most likely due to strain. I do not suspect cord compression or cauda equina. Patient is afebrile and non toxic in appearance. I do not suspect pyelonephritis or spinal abscess. Patient is advised to follow up with pcp and otherwise given strict return precautions. Patient understood and agrees with the plan of care. . Administered Medications: No medications were administered Disposition: 11/26 06:10 Co-signature as Attending Physician, Hermes Hernandez MD I agree with the assessment and niki plan of care. Disposition: 11/26/19 09:15 Discharged to Home. Impression: Strain of muscle, fascia and tendon of lower back, Strain of muscle and tendon of back wall of thorax. - Condition is Stable. - Discharge Instructions: Back Pain, Adult. - Prescriptions for Ibuprofen 800 mg Oral Tablet - take 1 tablet by ORAL route every 8 hours As needed take with food; 30 tablet. Zanaflex 4 mg Oral Tablet - take 1 tablet by ORAL route every 8 hours As needed; 20 tablet. - Medication Reconciliation Form, Thank You Letter, Antibiotic Education, Prescription Opioid Use, Work release form form. - Follow up: Private Physician; When: 2 - 3 days; Reason: Recheck today's complaints, Continuance of care, Re-evaluation by your physician. Signatures: Hermes Hernandez MD MD cha Mickail, Joel, PA PA m Rangel, Taras, RN RN em Bayron, Amanda, RN RN iw Corrections: (The following items were deleted from the chart) 11/25 09:29 09:15 11/26/2019 09:15 Discharged to Home. Impression: Strain of muscle, fascia and em tendon of lower back; Strain of muscle and tendon of back wall of thorax. Condition is Stable. Forms are Medication Reconciliation Form, Thank You Letter, Antibiotic Education, Prescription Opioid Use. Follow up: Private Physician; When: 2 - 3 days; Reason: Recheck today's complaints, Continuance of care, Re-evaluation by your physician. edwin
[2019-11-26 09:42] VITALS: BP 122/88; TEMP 97.7; O2SAT 100
== END 2019-11-26 09:29 | disposition home or self-care (01) ==
LOC: ER 08:19
DX: S39.012A Strain of muscle, fascia and tendon of lower back, initial encounter (principal); S29.012A Strain of muscle and tendon of back wall of thorax, initial encounter; X50.0XXA Overexertion from strenuous movement or load, initial encounter; Y93.89 Activity, other specified; Y92.89 Other specified places as the place of occurrence of the external cause; Y99.8 Other external cause status
CPT/HCPCS: 99283

== ENCOUNTER 2020-04-25 22:00 | Emergency (ER) | payer SELFPAY ==
--- NOTE | 2020-04-25 23:19 | ER ---
Nurse's Notes [facility] Name: Katy Stone Age: 35 yrs Sex: Female : 1985 Arrival Date: 04/25/2020 Time: 22:02 Bed 6 Private MD: Diagnosis: Acute upper respiratory infection, unspecified Presentation: 04/25 22:05 Chief complaint: Patient states: I am having body aches, chills, cough, congestion, and jb4 a headache that started 4 days ago after being around a co-worker that was covid-19 positive. 22:05 Coronavirus screen: Client denies travel out of the [place] in the last 14 days. Client jb4 presents with at least one sign or symptom that may indicate coronavirus-19. Standard/surgical mask placed on the client. Ebola Screen: No symptoms or risks identified at this time. Initial Sepsis Screen: Does the patient meet any 2 criteria? HR > 90 bpm. Yes Does the patient have a suspected source of infection? No. Patient's initial sepsis screen is negative. Risk Assessment: Do you want to hurt yourself or someone else? Patient reports no desire to harm self or others. Onset of symptoms was April 21, 2020. Transition of care: patient was not received from another setting of care. 22:05 Method Of Arrival: Ambulatory jb4 22:05 Acuity: KIRIT 4 jb4 Historical: - Allergies: 22:05 No Known Allergies; jb4 - Home Meds: 22:05 None [Active]; jb4 - PMHx: 22:05 None; jb4 - PSHx: 22:05 None; jb4 - Immunization history:: Adult Immunizations up to date. - Social history:: Smoking status: Patient reports the use of cigarette tobacco products, denies chronic smoking, but will smoke occasionally. - Family history:: not pertinent. - Hospitalizations: : No recent hospitalization is reported. Screenin:05 Abuse screen: Denies threats or abuse. Nutritional screening: No deficits noted. jb4 Tuberculosis screening: No symptoms or risk factors identified. Fall Risk None identified. Assessment: 22:05 General: Appears in no apparent distress. uncomfortable, Behavior is calm, cooperative, jb4 appropriate for age. Pain: Complains of pain in face Pain does not radiate. Pain currently is 6 out of 10 on a pain scale. Quality of pain is described as pressure. Neuro: Level of Consciousness is awake, alert, obeys commands, Oriented to person, place, time, situation. Cardiovascular: Patient's skin is warm and dry. Respiratory: Airway is patent Respiratory effort is even, unlabored, Respiratory pattern is regular, symmetrical. GI: Reports diarrhea. : No signs and/or symptoms were reported regarding the genitourinary system. EENT: No signs and/or symptoms were reported regarding the EENT system. Derm: Skin is intact, Skin is pink, warm \T\ dry. Musculoskeletal: Circulation, motion, and sensation intact. Range of motion: intact in all extremities. 23:12 Reassessment: Patient appears in no apparent distress at this time. Patient and/or jb4 family updated on plan of care and expected duration. Pain level reassessed. Patient is alert, oriented x 3, equal unlabored respirations, skin warm/dry/pink. 23:39 Reassessment: Patient appears in no apparent distress at this time. Patient and/or jb4 family updated on plan of care and expected duration. Pain level reassessed. Patient is alert, oriented x 3, equal unlabored respirations, skin warm/dry/pink. PT verbalized understanding of d/c and follow up instructions. Denies questions or concerns. Vital Signs: 22:17 BP 133 / 67; Pulse 105; Resp 19; Temp 98.4(O); Pulse Ox 99% on R/A; mw2 23:12 BP 124 / 58; Pulse 101; Resp 16; Pulse Ox 100% on R/A; jb4 ED Course: 22:02 Patient arrived in ED. mr 22:05 Arm band placed on right wrist. jb4 22:05 Patient has correct armband on for positive identification. Bed in low position. Call jb4 light in reach. Side rails up X 1. Pulse ox on. NIBP on. 22:13 Giovani Hull MD is Attending Physician. rn 22:30 Car Champagne, LUPIS is Primary Nurse. jb4 22:44 Triage completed. jb4 23:40 No provider procedures requiring assistance completed. Patient did not have IV access jb4 during this emergency room visit. Administered Medications: 23:11 Drug: Motrin 800 mg Route: PO; jb4 23:41 Follow up: Response: No adverse reaction; Pain is decreased jb4 Outcome: 23:19 Discharge ordered by . rn 23:40 Discharged to home ambulatory. jb4 23:40 Condition: stable 23:40 Discharge instructions given to patient, Instructed on discharge instructions, follow up and referral plans. Demonstrated understanding of instructions, follow-up care. 23:41 Patient left the ED. jb4 Addendum: 04/27/2020 17:28 Addendum: COVID-19 Result: Negative result given to RN to notify pt. Notified pt of a a5 negative COVID 19 swab results. Pt advised that even with a negative test result they should remain in isolation until symptom free for 3 days without medication. Pt also advised to return to the ED for worsening symptoms. Signatures: Darcie Wilkes mr Giovani Hull MD MD rn Calderon, Audri, RN RN aa5 Car Champagne RN RN jb4 Johnny Wills mw2
--- NOTE | 2020-04-25 23:19 | EDPHYS ---
Physician Documentation [facility] Name: Katy Stone Age: 35 yrs Sex: Female : 1985 Arrival Date: 04/25/2020 Time: 22:02 Bed 6 Private MD: ED Physician Giovani Hull HPI: 04/25 22:20 This 35 yrs old Female presents to ER via Unassigned with complaints of Flu rn Symptoms. 22:20 The patient or guardian reports runny nose, congestion, cough. Onset: The rn symptoms/episode began/occurred 3 week(s) ago. Severity of symptoms: At their worst the symptoms were mild, in the emergency department the symptoms are unchanged. Modifying factors: The symptoms are alleviated by nothing, the symptoms are aggravated by nothing. Associated signs and symptoms: Pertinent positives: rhinorrhea, sore throat. The patient has not experienced similar symptoms in the past. The patient has been recently seen by a physician:. Reports neg COVID test results recently, was swabbed Apr 18. 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 Reports 3 weeks of symptoms but now a few days of muscle aches. Reports 3 weeks of congestion/runny nose/non-productive cough/headache/fatigue. No chest pain/focal abd pain. . Historical: - Allergies: 22:05 No Known Allergies; jb4 - Home Meds: 22:05 None [Active]; jb4 - PMHx: 22:05 None; jb4 - PSHx: 22:05 None; jb4 - Immunization history:: Adult Immunizations up to date. - Social history:: Smoking status: Patient reports the use of cigarette tobacco products, denies chronic smoking, but will smoke occasionally. - Family history:: not pertinent. - Hospitalizations: : No recent hospitalization is reported. ROS: 22:20 Constitutional: + subjective fever and chills Eyes: + clear intemrittent drainage both rn eyes. ENT: + runny nose and congestion, + sore throat Neck: Negative for injury, pain, and swelling, Cardiovascular: Negative for chest pain, palpitations, and edema, Respiratory: + cough, neg for sob Abdomen/GI: Negative for abdominal pain, nausea, vomiting, diarrhea, and constipation, Back: Negative for injury and pain, : Negative for injury, bleeding, discharge, and swelling, MS/Extremity: Negative for injury and deformity, Skin: Negative for injury, rash, and discoloration, Neuro: Negative for numbness, tingling, and seizure. Exam: 22:20 Constitutional: This is a well developed, well nourished patient who is awake, alert, rn and in no acute distress. Ambulatory to room without difficulty. Head/Face: Normocephalic, atraumatic. Eyes: Pupils equal round and reactive to light, extra-ocular motions intact. Lids and lashes normal. Conjunctiva and sclera are non-icteric and not injected. Cornea within normal limits. Periorbital areas with no swelling, redness, or edema. ENT: MMM, no stridor Cardiovascular: Tachycardic, regular. No pulse deficits. Respiratory: Speaking full sentences, unlabored. Abdomen/GI: soft, non-tender Skin: Warm, dry MS/ Extremity: Pulses equal, no cyanosis. Neuro: Awake and alert, GCS 15 Vital Signs: 22:17 BP 133 / 67; Pulse 105; Resp 19; Temp 98.4(O); Pulse Ox 99% on R/A; mw2 23:12 BP 124 / 58; Pulse 101; Resp 16; Pulse Ox 100% on R/A; jb4 MDM: 22:13 Patient medically screened. rn 23:18 Differential Diagnosis: Influenza Upper Respiratory Infection Viral Syndrome. Data rn reviewed: vital signs, nurses notes, lab test result(s), and as a result, I will discharge patient. Counseling: I had a detailed discussion with the patient and/or guardian regarding: the historical points, exam findings, and any diagnostic results supporting the discharge/admit diagnosis, lab results, the need for outpatient follow up, to return to the emergency department if symptoms worsen or persist or if there are any questions or concerns that arise at home. Special discussion: I discussed with the patient/guardian in detail that at this point there is no indication for admission to the hospital. It is understood, however, that if the symptoms persist or worsen the patient needs to return immediately for re-evaluation. ED course: Flu neg per verbal report from lab, covid sent, no oxygen requirement, will dc home with return precautions. . 04/25 22:19 Order name: Flu; Complete Time: 23:37 rn 04/25 22:19 Order name: COVID-19 rn Administered Medications: 23:11 Drug: Motrin 800 mg Route: PO; jb4 23:41 Follow up: Response: No adverse reaction; Pain is decreased jb4 Disposition: 04/25/20 23:19 Discharged to Home. Impression: Acute upper respiratory infection, unspecified. - Condition is Stable. - Discharge Instructions: Upper Respiratory Infection, Adult, Viral Respiratory Infection. - Medication Reconciliation Form, Thank You Letter, Antibiotic Education, Prescription Opioid Use, Work release form form. - Follow up: Private Physician; When: As needed; Reason: Recheck today's complaints, Re-evaluation by your physician. - Problem is new. - Symptoms have improved. Signatures: Dispatcher [employer] EDGiovani Joseph MD MD rn Bryson, James, RN RN jb4 Corrections: (The following items were deleted from the chart) 23:41 23:19 04/25/2020 23:19 Discharged to Home. Impression: Acute upper respiratory jb4 infection, unspecified. Condition is Stable. Forms are Medication Reconciliation Form, Thank You Letter, Antibiotic Education, Prescription Opioid Use. Follow up: Private Physician; When: As needed; Reason: Recheck today's complaints, Re-evaluation by your physician. Problem is new. Symptoms have improved. rn
[2020-04-25] MEDS ORDERED: IBUPROFEN 400 MG TAB ONE (23:23)
[2020-04-28 14:13] VITALS: TEMP 98.4
[2020-04-28 14:16] VITALS: BP 124/58; O2SAT 100
== END 2020-04-25 23:41 | disposition home or self-care (01) ==
LOC: ER 22:00
DX: J06.9 Acute upper respiratory infection, unspecified (principal); Z20.828 Contact with and (suspected) exposure to other viral communicable diseases; F17.210 Nicotine dependence, cigarettes, uncomplicated
CPT/HCPCS: 87804; 99283; U0002

== ENCOUNTER 2020-05-29 10:28 | Emergency (ER) | payer OTHER, SELFPAY ==
[2020-05-29] MEDS ORDERED: KETOROLAC 30 MG/ML INJ ONE (11:19)
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
[2020-05-29 12:36] VITALS: BP 136/68; TEMP 98.6; O2SAT 99
== END 2020-05-29 12:29 | disposition home or self-care (01) ==
LOC: ER 10:28
DX: S16.1XXA Strain of muscle, fascia and tendon at neck level, initial encounter (principal); M25.562 Pain in left knee; V49.40XA Driver injured in collision with unspecified motor vehicles in traffic accident, initial encounter
CPT/HCPCS: 70450; 72125; 96372; 99283

== ENCOUNTER 2020-10-10 19:59 | Emergency (ER) | payer SELFPAY ==
[2020-10-10 22:05] LABS: SARS-COV-2 RT PCR NEGATIVE (NEGATIVE)
--- NOTE | 2020-10-10 22:20 | EDPHYS ---
Physician Documentation [facility] Name: Katy Khalil Age: 35 yrs Sex: Female : 1985 Arrival Date: 10/10/2020 Time: 20:04 Bed 1 Private MD: ED Physician Reginaldo Dominique HPI: 10/10 20:49 This 35 yrs old Female presents to ER via Ambulatory with complaints of pm1 Headache, Nasal Congestion, Cough, Painful Cough. 20:49 The patient or guardian reports cough, with no sputum. Onset: The symptoms/episode pm1 began/occurred 1 week(s) ago. Severity of symptoms: in the emergency department the symptoms are unchanged. Modifying factors: The symptoms are alleviated by nothing, the symptoms are aggravated by nothing. Associated signs and symptoms: Pertinent positives: Headache, sore throat, nasal congestion, Pertinent negatives: fever. The patient has not recently seen a physician. Presenting with daughter to the ER who has similar symptoms . 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 - Social history:: Smoking status: Patient reports the use of cigarette tobacco products, denies chronic smoking, but will smoke occasionally. ROS: 20:49 Constitutional: Negative for fever, chills, and weight loss, Eyes: Negative for injury, pm1 pain, redness, and discharge. 20:49 Cardiovascular: Negative for chest pain, palpitations, and edema. 20:49 Abdomen/GI: Negative for abdominal pain, nausea, vomiting, diarrhea, and constipation, Back: Negative for injury and pain, MS/Extremity: Negative for injury and deformity, Skin: Negative for injury, rash, and discoloration. 20:49 ENT: Positive for nasal discharge, sore throat, Negative for ear pain. 20:49 Respiratory: Positive for cough, Negative for shortness of breath, sputum production. 20:49 Neuro: Positive for headache. Exam: 20:49 Constitutional: This is a well developed, well nourished patient who is awake, alert, pm1 and in no acute distress. Head/Face: Normocephalic, atraumatic. Eyes: Pupils equal round and reactive to light, extra-ocular motions intact. Lids and lashes normal. Conjunctiva and sclera are non-icteric and not injected. Cornea within normal limits. Periorbital areas with no swelling, redness, or edema. 20:49 Neck: Trachea midline, no thyromegaly or masses palpated, and no cervical lymphadenopathy. Supple, full range of motion without nuchal rigidity, or vertebral point tenderness. No Meningismus. 20:49 Back: No spinal tenderness. No costovertebral tenderness. Full range of motion. 20:49 Skin: Warm, dry with normal turgor. Normal color with no rashes, no lesions, and no evidence of cellulitis. MS/ Extremity: Pulses equal, no cyanosis. Neurovascular intact. Full, normal range of motion. 20:49 ENT: External ear(s): are unremarkable, Ear canal(s): are normal, TM's: are normal, Posterior pharynx: Airway: no evidence of obstruction, Tonsils: bilaterally enlarged, with erythema, no exudate, no ulcerations, erythema, that is mild, peritonsillar mass, is not appreciated, pooling of secretions, is not appreciated. 20:49 Cardiovascular: Rate: normal, Rhythm: regular, Pulses: no pulse deficits are appreciated. 20:49 Respiratory: Exam negative for acute changes, respiratory distress, shortness of breath, Breath sounds: are clear throughout. 20:49 Abdomen/GI: Inspection: abdomen appears normal, Palpation: abdomen is soft and non-tender, in all quadrants. 20:49 Neuro: Exam negative for acute changes, Orientation: is normal, Motor: is normal, moves all fours. Vital Signs: 20:27 BP 118 / 66; Pulse 104; Resp 16; Temp 98.4(O); Pulse Ox 99% ; Weight 81.65 kg; Height 5 vg1 ft. 2 in. (157.48 cm); Pain 0/10; 22:38 BP 120 / 78; Pulse 98; Resp 16; Pulse Ox 100% on R/A; zb 20:27 Body Mass Index 32.92 (81.65 kg, 157.48 cm) vg1 MDM: 20:36 Patient medically screened. pm1 22:19 Data reviewed: vital signs. Data interpreted: Pulse oximetry: on room air is 99 %. pm1 Interpretation: normal. Counseling: I had a detailed discussion with the patient and/or guardian regarding: the historical points, exam findings, and any diagnostic results supporting the discharge/admit diagnosis, lab results, the need for outpatient follow up, to return to the emergency department if symptoms worsen or persist or if there are any questions or concerns that arise at home. 10/10 20:47 Order name: COVID-19 : Document "Date of Symptom Onset" if Symptomatic. pm1 10/10 20:47 Order name: Flu pm1 10/10 20:47 Order name: Strep; Complete Time: 22:18 pm1 10/10 21:25 Order name: Throat Culture EDWA 10/10 20:47 Order name: Droplet/Contact Precautions; Complete Time: 21:26 pm1 10/10 20:47 Order name: Labs collected and sent; Complete Time: 21:26 pm1 10/10 20:47 Order name: O2 Per Protocol; Complete Time: 21:26 pm1 10/10 22:05 Order name: COVID-19/FLU A+B; Complete Time: 22:18 EDMS Administered Medications: No medications were administered Disposition: 10/10/20 22:19 Discharged to Home. Impression: Acute upper respiratory infection, unspecified. - Condition is Stable. - Discharge Instructions: Antibiotic Resistance, Upper Respiratory Infection, Adult, Viral Respiratory Infection. - Medication Reconciliation Form, Thank You Letter, Antibiotic Education, Prescription Opioid Use form. - Follow up: Emergency Department; When: As needed; Reason: Worsening of condition. Follow up: Private Physician; When: 2 - 3 days; Reason: Recheck today's complaints, Continuance of care, Re-evaluation by your physician. - Problem is new. - Symptoms have improved. Signatures: Dispatcher [employer] [facility] Matty Duggan NP E COMMERCE DEVELOPER pm1 Wendy Lawton, RN RN vg1 Erna Saunders RN RN zb Corrections: (The following items were deleted from the chart) 21:09 20:47 Influenza Screen (A ordered. [facility] 21:10 20:47 CORONAVIRUS ordered. [facility] 22:39 22:19 10/10/2020 22:19 Discharged to Home. Impression: Acute upper respiratory zb infection, unspecified. Condition is Stable. Forms are Medication Reconciliation Form, Thank You Letter, Antibiotic Education, Prescription Opioid Use. Follow up: Emergency Department; When: As needed; Reason: Worsening of condition. Follow up: Private Physician; When: 2 - 3 days; Reason: Recheck today's complaints, Continuance of care, Re-evaluation by your physician. Problem is new. Symptoms have improved. pm1
--- NOTE | 2020-10-10 22:20 | ER ---
Nurse's Notes [facility] Name: Katy Khalil Age: 35 yrs Sex: Female : 1985 Arrival Date: 10/10/2020 Time: 20:04 Bed 1 Private MD: Diagnosis: Acute upper respiratory infection, unspecified Presentation: 10/10 20:27 Chief complaint: Patient states: Sore throat, dry cough, h/a for about one week and vg1 feeling tired. Coronavirus screen: Client denies travel out of the [place] in the last 14 days. Ebola Screen: Patient negative for fever greater than or equal to 101.5 degrees Fahrenheit, and additional compatible Ebola Virus Disease symptoms. Initial Sepsis Screen: Does the patient meet any 2 criteria? No. Patient's initial sepsis screen is negative. Does the patient have a suspected source of infection? No. Patient's initial sepsis screen is negative. Risk Assessment: Do you want to hurt yourself or someone else? Patient reports no desire to harm self or others. Onset of symptoms was October 03, 2020. 20:27 Method Of Arrival: Ambulatory vg1 20:27 Acuity: KIRIT 3 vg1 Triage Assessment: 20:28 Headache History: Denies prior headaches. General: Appears in no apparent distress. vg1 comfortable, Behavior is calm, cooperative. Pain: Complains of pain in head and throat Pain currently is 0 out of 10 on a pain scale. Pain began about a week ago Also complains of no other associated symptoms. Neuro: Level of Consciousness is awake, alert, obeys commands, Oriented to person, place, time, situation. NURSE LICENSED PRACTICAL: 20:28 LMP 09/19/2020 vg1 Historical: - Allergies: 20:28 No Known Allergies; vg1 - PMHx: 20:28 None; vg1 - PSHx: 20:28 Cholecystectomy; vg1 - Immunization history:: Adult Immunizations up to date. - Social history:: Smoking status: Patient reports the use of cigarette tobacco products, denies chronic smoking, but will smoke occasionally. Screenin:38 Abuse screen: Denies threats or abuse. Denies injuries from another. Nutritional zb screening: No deficits noted. Tuberculosis screening: No symptoms or risk factors identified. Fall Risk None identified. Assessment: 21:30 General: Appears in no apparent distress. comfortable, Behavior is calm, cooperative, zb appropriate for age. Pain: Complains of pain in forehead Quality of pain is described as aching, Pain began 1 day ago. Neuro: Level of Consciousness is awake, alert, obeys commands, Oriented to person, place, time, situation. Cardiovascular: Patient's skin is warm and dry. Respiratory: Reports cough that is Airway is patent Respiratory effort is even, unlabored, Respiratory pattern is regular, symmetrical. GI: Abdomen is flat. EENT: Reports nasal congestion nasal discharge. Derm: Skin is intact. Derm: Skin Skin is dry, Skin temperature is warm. Musculoskeletal: Circulation, motion, and sensation intact. Range of motion: intact in all extremities. 22:38 Reassessment: Patient appears in no apparent distress at this time. Patient and/or zb family updated on plan of care and expected duration. Pain level reassessed. Patient is alert, oriented x 3, equal unlabored respirations, skin warm/dry/pink. d/ instructions given. pt ambulated out. gait even and steady. Vital Signs: 20:27 BP 118 / 66; Pulse 104; Resp 16; Temp 98.4(O); Pulse Ox 99% ; Weight 81.65 kg; Height 5 vg1 ft. 2 in. (157.48 cm); Pain 0/10; 22:38 BP 120 / 78; Pulse 98; Resp 16; Pulse Ox 100% on R/A; zb 20:27 Body Mass Index 32.92 (81.65 kg, 157.48 cm) vg1 ED Course: 20:04 Patient arrived in ED. cf2 20:28 Triage completed. vg1 20:28 Arm band placed on. vg1 20:36 Matty Duggan NP is PHCP. pm1 20:36 Reginaldo Dominique MD is Attending Physician. pm1 21:26 Erna Saunders, LUPIS is Primary Nurse. zb 21:26 Flu Sent. zb 21:26 COVID-19 : Document "Date of Symptom Onset" if Symptomatic. Sent. zb 22:39 Patient has correct armband on for positive identification. Pulse ox on. NIBP on. zb 22:39 No provider procedures requiring assistance completed. Patient did not have IV access zb during this emergency room visit. Administered Medications: No medications were administered Outcome: 22:19 Discharge ordered by . pm1 22:39 Discharged to home ambulatory. zb 22:39 Condition: stable 22:39 Discharge instructions given to patient, Instructed on discharge instructions, follow up and referral plans. Demonstrated understanding of instructions, follow-up care. 22:39 Patient left the ED. zb Signatures: Matty Duggan, KWAME SUPERVISOR BEATER ROOM pm1 Breezy Caballero cf2 Wendy Lawton, RN RN vg1 Erna Saunders RN RN zb
[2020-10-10 22:48] VITALS: TEMP 98.4
[2020-10-10 22:50] VITALS: BP 120/78; O2SAT 100
== END 2020-10-10 22:39 | disposition home or self-care (01) ==
LOC: ER 19:59
DX: J06.9 Acute upper respiratory infection, unspecified (principal); Z20.822 Contact with and (suspected) exposure to COVID-19; F17.210 Nicotine dependence, cigarettes, uncomplicated
CPT/HCPCS: 0240U; 87070; 87081; 99283

== ENCOUNTER 2021-02-03 12:21 | Emergency (ER) | payer SELFPAY ==
--- NOTE | 2021-02-03 12:41 | ER ---
Nurse's Notes [facility] Name: Katy Khalil Age: 35 yrs Sex: Female : 1985 Arrival Date: 02/03/2021 Time: 12:24 Bed 12 Private MD: Diagnosis: Periapical abscess without sinus Presentation: 02/03 12:33 Chief complaint: Patient states: she gets these "tooth aches" when the weather changes. ap3 patient states she took Advil last night and the pain didn't resolve. pain is located on the right upper and lower teeth. She states she has seen a dentist in the past, but is waiting for her husbands insurance to kick in. Coronavirus screen: At this time, the client does not indicate any symptoms associated with coronavirus-19. Ebola Screen: No symptoms or risks identified at this time. Initial Sepsis Screen: Does the patient meet any 2 criteria? No. Patient's initial sepsis screen is negative. Does the patient have a suspected source of infection? No. Patient's initial sepsis screen is negative. Risk Assessment: Do you want to hurt yourself or someone else? Patient reports no desire to harm self or others. Onset of symptoms was February 02, 2021. 12:33 Method Of Arrival: Ambulatory ap3 12:33 Acuity: KIRIT 4 ap3 Triage Assessment: 12:36 General: Appears uncomfortable, Behavior is calm, cooperative, appropriate for age. ap3 Pain: Complains of pain in right cheek and right jaw Pain radiates to right ear and right restorationism Pain currently is 10 out of 10 on a pain scale. Pain began gradually, 1 day ago. EENT: Reports pain in right cheek and right jaw. Neuro: Level of Consciousness is awake, alert, obeys commands, Oriented to person, place, time, situation, Appropriate for age. Cardiovascular: No deficits noted. Respiratory: Airway is patent Respiratory effort is even, labored, Respiratory pattern is regular, symmetrical. GI: No signs and/or symptoms were reported involving the gastrointestinal system. : No signs and/or symptoms were reported regarding the genitourinary system. Derm: No signs and/or symptoms reported regarding the dermatologic system. 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 - Social history:: Smoking status: Patient reports the use of cigarette tobacco products, denies chronic smoking, but will smoke occasionally, Patient uses alcohol, occasionally. Patient/guardian denies using street drugs. Screenin:38 Abuse screen: Denies threats or abuse. Nutritional screening: No deficits noted. ap3 Tuberculosis screening: No symptoms or risk factors identified. Fall Risk None identified. Vital Signs: 12:33 BP 134 / 99; Pulse 69; Resp 18; Temp 98.2; Pulse Ox 100% ; Weight 86.18 kg; Height 5 ap3 ft. 2 in. (157.48 cm); Pain 10/10; 12:33 Body Mass Index 34.75 (86.18 kg, 157.48 cm) ap3 ED Course: 12:24 Patient arrived in ED. mr 12:35 Triage completed. ap3 12:35 [facility] Gallagher [facility]C [facility] kb 12:35 Akil Pearce MD is Attending Physician. kb 12:38 Arm band placed on right wrist. ap3 12:38 Patient has correct armband on for positive identification. Pulse ox on. NIBP on. Door ap3 closed. Noise minimized. 12:39 Terri Fritz, LUPIS is Primary Nurse. ap3 12:44 No provider procedures requiring assistance completed. Patient did not have IV access ap3 during this emergency room visit. Administered Medications: 12:43 Drug: Augmentin (Amoxicillin-Clavulanate) 875 mg Route: PO; ap3 12:43 Follow up: Response: No adverse reaction ap3 12:43 Drug: [place] (HYDROcodone-acetaminophen) (7.5 mg-325 mg) 1 tabs Route: PO; ap3 12:43 Follow up: Response: No adverse reaction ap3 Outcome: 12:41 Discharge ordered by . kb 12:44 Discharged to home ambulatory. ap3 12:44 Condition: good 12:44 Discharge instructions given to patient, Instructed on discharge instructions, follow up and referral plans. medication usage, Demonstrated understanding of instructions, follow-up care, medications, Prescriptions given X 1. 12:45 Patient left the ED. ap3 Signatures: Louise Gallagher FNP-C FNP-Darcie Crenshaw Amanda, RN RN ap3 Corrections: (The following items were deleted from the chart) 12:36 12:35 PSHx: None; ap3 ap3
--- NOTE | 2021-02-03 12:41 | EDPHYS ---
Physician Documentation [facility] Name: Katy Khalil Age: 35 yrs Sex: Female : 1985 Arrival Date: 02/03/2021 Time: 12:24 Bed 12 Private MD: ED Physician Akil Pearce HPI: 02/03 17:12 This 35 yrs old Female presents to ER via Ambulatory with complaints of kb Toothache. 17:12 The patient presents with pain, redness, swelling. The problem is located in the right kb buccal mucosa. Onset: The symptoms/episode began/occurred today. Duration: The symptoms are continuous. Modifying factors: The symptoms are alleviated by nothing, the symptoms are aggravated by nothing. Associated signs and symptoms: Pertinent positives: pain, redness in area, swelling. Severity of symptoms: At their worst the symptoms were moderate, in the emergency department the symptoms are unchanged. The patient has experienced similar episodes in the past, a few times. The patient has not recently seen a physician. Pt c/o pain to right upper gums/teeth that started today. Pt has had this problem in the past and is supposed to have oral surgery but is waiting on insurance. . 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 - Social history:: Smoking status: Patient reports the use of cigarette tobacco products, denies chronic smoking, but will smoke occasionally, Patient uses alcohol, occasionally. Patient/guardian denies using street drugs. ROS: 17:12 Constitutional: Negative for fever, chills, and weight loss. kb 17:12 ENT: Positive for dental pain. 17:12 All other systems are negative. Exam: 17:11 Constitutional: This is a well developed, well nourished patient who is awake, alert, kb and in no acute distress. Head/Face: Normocephalic, atraumatic. Respiratory: Respirations even and unlabored. No increased work of breathing, no retractions or nasal flaring. Skin: Warm, dry with normal turgor. Normal color. MS/ Extremity: Pulses equal, no cyanosis. Neurovascular intact. Full, normal range of motion. Neuro: Awake and alert, GCS 15, oriented to person, place, time, and situation. Moves all extremities. Normal gait. Psych: Awake, alert, with orientation to person, place and time. Behavior, mood, and affect are within normal limits. 17:11 ENT: Dental exam: gum swelling, that is mild, that is moderate, specifically in the upper right first bicuspid (#5) and upper right cuspid (#6), pain, diffusely. Vital Signs: 12:33 BP 134 / 99; Pulse 69; Resp 18; Temp 98.2; Pulse Ox 100% ; Weight 86.18 kg; Height 5 ap3 ft. 2 in. (157.48 cm); Pain 10/10; 12:33 Body Mass Index 34.75 (86.18 kg, 157.48 cm) ap3 MDM: 12:41 Patient medically screened. kb 17:11 Data reviewed: vital signs, nurses notes. Data interpreted: Pulse oximetry: on room air kb is 100 %. Interpretation: normal. Counseling: I had a detailed discussion with the patient and/or guardian regarding: the historical points, exam findings, and any diagnostic results supporting the discharge/admit diagnosis, the need for outpatient follow up, a dentist, to return to the emergency department if symptoms worsen or persist or if there are any questions or concerns that arise at home. Administered Medications: 12:43 Drug: Augmentin (Amoxicillin-Clavulanate) 875 mg Route: PO; ap3 12:43 Follow up: Response: No adverse reaction ap3 12:43 Drug: [place] (HYDROcodone-acetaminophen) (7.5 mg-325 mg) 1 tabs Route: PO; ap3 12:43 Follow up: Response: No adverse reaction ap3 Disposition Summary: 02/03/21 12:41 Discharge Ordered Location: Home kb Condition: Stable kb Diagnosis - Periapical abscess without sinus kb Followup: kb - With: Emergency Department - When: As needed - Reason: Worsening of condition Followup: kb - With: Private Physician - When: 2 - 3 days - Reason: Recheck today's complaints, Continuance of care, Re-evaluation by your physician Discharge Instructions: - Discharge Summary Sheet kb - Dental Pain, [id number] kb - Dental Abscess, [id number] kb Forms: - Medication Reconciliation Form kb - Thank You Letter kb - Antibiotic Education kb - Prescription Opioid Use kb - Work release form ap3 Prescriptions: - Augmentin 875-125 mg Oral Tablet - take 1 tablet by ORAL route every 12 hours for 10 days; 20 tablet; Refills: 0, kb Product Selection Permitted Addendum: 02/04/2021 16:58 Co-signature as Attending Physician, Akil Pearce MD I agree with the assessment and k dr plan of care. Signatures: Louise Gallagher, PLANT SUPERINTENDENT-C PLANT SUPERINTENDENT-Akil Peraza MD MD [facility] Terri Fritz RN RN ap3 Corrections: (The following items were deleted from the chart) 02/03 12:36 12:35 PSHx: None; ap3 ap3
[2021-02-03] MEDS ORDERED: AMOX TR/K CLAV 400MG CHEW TAB PO ONE (13:05)
[2021-02-03] MEDS ORDERED: HYDROCODONE/APAP 7.5/325 MG TAB ONE (13:06)
== END 2021-02-03 12:45 | disposition home or self-care (01) ==
LOC: ER 12:21
DX: K04.7 Periapical abscess without sinus (principal); F17.210 Nicotine dependence, cigarettes, uncomplicated
CPT/HCPCS: 99283

== ENCOUNTER 2021-03-30 10:54 | Emergency (ER) | payer SELFPAY ==
[2021-03-30] MEDS ORDERED: ONDANSETRON 4 MG/2 ML VIAL ONE (11:26)
[2021-03-30] MEDS ORDERED: FAMOTIDINE 20 MG/2 ML VIAL IV ONE (11:26)
[2021-03-30] MEDS ORDERED: KETOROLAC 30 MG/ML INJ ONE (11:26)
[2021-03-30] MEDS ORDERED: NA CHLORIDE 0.9% 1,000 ML ONE (11:26)
[2021-03-30 11:41] LABS: Absolute Lymphocytes (CBC) 2.7 K/uL (0.7-4.9); Basophils % 0.7 % (0-1.3); Hematocrit 36.6 % (36.0-45.0); Lymphocytes % 23.4 % (15.3-44.8); RBC Red Blood Cell Count 4.19 M/uL (3.86-4.86)
[2021-03-30 11:55] LABS: ALT/SGPT 33 U/L (12-78); AST/SGOT 15 U/L (15-37); Albumin 3.2 g/dL (3.4-5.0); Alkaline Phosphatase 87 U/L (45-117); BUN Blood Urea Nitrogen 8 mg/dL (7-18); Bicarbonate 28 mmol/L (21-32); Bilirubin Direct < 0.1 mg/dL (0-0.2); Bilirubin Total 0.3 mg/dL (0.2-1.0); Glucose Level 123 mg/dL (74-106); Lipase 132 U/L (73-393); Protein, Total 7.4 g/dL (6.4-8.2); Sodium Level 141 mmol/L (136-145)
--- NOTE | 2021-03-30 14:25 | ER ---
Nurse's Notes [facility] Name: Katy Khalil Age: 36 yrs Sex: Female : 1985 Arrival Date: 03/30/2021 Time: 11:02 Bed 13 Private MD: None, None Diagnosis: Viral infection, unspecified;Fever, unspecified;Vomiting;Acute upper respiratory infection, unspecified Presentation: 03/30 11:10 Chief complaint: Patient states: "we are under a boil water notice in [place] but aa5 didn't know and yesterday I started with a cough and headache, today I vomited twice, have body aches, and congested". Coronavirus screen: congestion, cough unrelated to allergies, headache, muscle pain. Ebola Screen: No symptoms or risks identified at this time. Initial Sepsis Screen: Does the patient meet any 2 criteria? No. Patient's initial sepsis screen is negative. Does the patient have a suspected source of infection? No. Patient's initial sepsis screen is negative. Risk Assessment: Do you want to hurt yourself or someone else? Patient reports no desire to harm self or others. Onset of symptoms was March 30, 2021. 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 - Social history:: Smoking status: Patient denies any tobacco usage or history of. Screenin:14 Abuse screen: Denies threats or abuse. Nutritional screening: No deficits noted. tw2 Tuberculosis screening: No symptoms or risk factors identified. Fall Risk None identified. Assessment: 11:13 General: Appears in no apparent distress. Behavior is calm, cooperative. Pain: ap3 Complains of pain in chest and abdomen Pain does not radiate. Pain began gradually, 1 day ago. Aggravated by coughing and vomiting. Neuro: Level of Consciousness is awake, alert, obeys commands, Oriented to person, place, time, situation, Appropriate for age. Cardiovascular: Patient's skin is warm and dry. Respiratory: Reports cough that is productive, Airway is patent Respiratory effort is even, unlabored, Respiratory pattern is regular, symmetrical. GI: Reports nausea, vomiting, Patient currently denies diarrhea. EENT: Reports nasal congestion. 12:13 Reassessment: Patient and/or family updated on plan of care and expected duration. Pain ap3 level reassessed. Patient is alert, oriented x 3, equal unlabored respirations, skin warm/dry/pink. 13:03 Reassessment: Patient and/or family updated on plan of care and expected duration. Pain ap3 level reassessed. Patient is alert, oriented x 3, equal unlabored respirations, skin warm/dry/pink. Vital Signs: 11:10 BP 136 / 82; Pulse 87; Resp 18 S; Temp 97.7(O); Pulse Ox 99% on R/A; Weight 99.79 kg aa5 (R); Height 5 ft. 4 in. (162.56 cm) (R); 12:03 BP 124 / 70; Pulse 76; Pulse Ox 100% on R/A; ap3 13:02 BP 120 / 72; Pulse 85; Pulse Ox 100% on R/A; ap3 14:10 BP 103 / 71 LA (auto/lg); Pulse 72; Resp 17; Pulse Ox 100% on R/A; ap3 11:10 Body Mass Index 37.76 (99.79 kg, 162.56 cm) aa5 ED Course: 11:02 Patient arrived in ED. ap4 11:03 Akil Pearce MD is Attending Physician. kdr 11:04 None, None is Private Physician. ap4 11:04 Placed in gown. Bed in low position. Call light in reach. monitoring engineer on. Pulse ox tw2 on. NIBP on. 11:10 Arm band placed on Patient placed in an exam room, on a stretcher. aa5 11:12 Triage completed. aa5 11:13 Terri Fritz, LUPIS is Primary Nurse. ap3 11:14 Patient maintains SpO2 saturation greater than 95% on room air. tw2 11:29 Initial lab(s) drawn, by me, sent to lab. First set of blood cultures drawn by me. kj1 Inserted saline lock: 20 gauge in right antecubital area, using aseptic technique. Blood collected. 13:04 Strep Sent. tw2 14:35 No provider procedures requiring assistance completed. IV discontinued, intact, ap3 bleeding controlled, No redness/swelling at site. Pressure dressing applied. Administered Medications: 11:35 Drug: Ondansetron 4 mg Route: PO; ap3 14:36 Follow up: Response: No adverse reaction; Nausea is decreased ap3 11:35 Drug: Pepcid (famotidine) 20 mg Route: IVP; Site: right antecubital; ap3 14:36 Follow up: Response: No adverse reaction ap3 11:35 Drug: Ketorolac 15 mg Route: IVP; Site: right antecubital; ap3 14:37 Follow up: Response: No adverse reaction ap3 11:36 Drug: NS 0.9% 1000 ml Route: IV; Rate: 1 bolus; Site: right antecubital; ap3 13:04 Follow up: Response: No adverse reaction; IV Status: Completed infusion; IV Intake: tw2 1000ml 14:37 Follow up: IV Status: Completed infusion ap3 Intake: 13:04 IV: 1000ml; Total: 1000ml. tw2 Outcome: 14:25 Discharge ordered by . kdr 14:35 Discharged to home ambulatory, with family. ap3 14:35 Condition: good 14:35 Discharge instructions given to patient, Instructed on discharge instructions, follow up and referral plans. medication usage, Demonstrated understanding of instructions, follow-up care, medications, Prescriptions given X 1. 14:36 Patient left the ED. ap3 Signatures: Akil Pearce MD MD kdr Amanda Verma RN RN iw Calderon, Audri, RN RN aa5 Yani Long RN RN tw2 Terri Fritz RN RN ap3 Tangela Gallagher Abigail ap4
--- NOTE | 2021-03-30 14:25 | EDPHYS ---
Physician Documentation [facility] Name: Katy Khalil Age: 36 yrs Sex: Female : 1985 Arrival Date: 03/30/2021 Time: 11:02 Bed 13 Private MD: None, None ED Physician Akil Pearce HPI: 03/30 14:36 This 36 yrs old Female presents to ER via Ambulatory with complaints of Nasal kdr Congestion, Chest Pain, Vomiting. 14:36 Severity of symptoms: At their worst the symptoms were moderate severe just prior to kdr arrival, in the emergency department the symptoms are unchanged. The patient has not experienced similar symptoms in the past. The patient has not recently seen a physician. The patient vomited twice and has had body aches and felt congested with slight cough and headache since yesterday. She was concerned that since there had been a boil water noticed in [place] that she may have been exposed to unsanitary water. She has had general aches and pains with her emesis. She otherwise appears mildly ill but not toxic. 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 - Social history:: Smoking status: Patient denies any tobacco usage or history of. ROS: 14:36 Eyes: Negative for injury, pain, redness, and discharge, Neck: Negative for injury, kdr pain, and swelling, Cardiovascular: Negative for chest pain, palpitations, and edema, Respiratory: Negative for shortness of breath, cough, wheezing, and pleuritic chest pain, Abdomen/GI: Negative for abdominal pain, nausea, vomiting, diarrhea, and constipation, Back: Negative for injury and pain, : Negative for injury, bleeding, discharge, and swelling, MS/Extremity: Negative for injury and deformity, Skin: Negative for injury, rash, and discoloration, Neuro: Negative for headache, weakness, numbness, tingling, and seizure activity. Psych: Negative for depression, anxiety, suicide ideation, homicidal ideation, and hallucinations, Allergy/Immunology: Negative for hives, rash, and allergies, Endocrine: Negative for neck swelling, polydipsia, polyuria, polyphagia, and marked weight changes, Hematologic/Lymphatic: Negative for swollen nodes, abnormal bleeding, and unusual bruising. 14:36 Constitutional: Positive for body aches, chills, malaise, poor PO intake. 14:36 Abdomen/GI: Positive for vomiting, Patient had some right upper quadrant pain yesterday that has since resolved. She said the pain radiated around to her right flank and into her right arm as well. Exam: 14:36 Constitutional: This is a well developed, well nourished patient who is awake, alert, kdr and in no acute distress. Head/Face: Normocephalic, atraumatic. Eyes: Pupils equal round and reactive to light, extra-ocular motions intact. Lids and lashes normal. Conjunctiva and sclera are non-icteric and not injected. Cornea within normal limits. Periorbital areas with no swelling, redness, or edema. Neck: Trachea midline, no thyromegaly or masses palpated, and no cervical lymphadenopathy. Supple, full range of motion without nuchal rigidity, or vertebral point tenderness. No Meningismus. Chest/axilla: Normal chest wall appearance and motion. Nontender with no deformity. No lesions are appreciated. Cardiovascular: Regular rate and rhythm with a normal S1 and S2. No gallops, murmurs, or rubs. Normal PMI, no JVD. No pulse deficits. Respiratory: Lungs have equal breath sounds bilaterally, clear to auscultation and percussion. No rales, rhonchi or wheezes noted. No increased work of breathing, no retractions or nasal flaring. Back: No spinal tenderness. No costovertebral tenderness. Full range of motion. Skin: Warm, dry with normal turgor. Normal color with no rashes, no lesions, and no evidence of cellulitis. MS/ Extremity: Pulses equal, no cyanosis. Neurovascular intact. Full, normal range of motion. Neuro: Awake and alert, GCS 15, oriented to person, place, time, and situation. Cranial nerves II-XII grossly intact. Motor strength 5/5 in all extremities. Sensory grossly intact. Cerebellar exam normal. Normal gait. Psych: Awake, alert, with orientation to person, place and time. Behavior, mood, and affect are within normal limits. 14:36 Abdomen/GI: Inspection: obese Bowel sounds: active, all quadrants, Palpation: soft, nontender. Vital Signs: 11:10 BP 136 / 82; Pulse 87; Resp 18 S; Temp 97.7(O); Pulse Ox 99% on R/A; Weight 99.79 kg aa5 (R); Height 5 ft. 4 in. (162.56 cm) (R); 12:03 BP 124 / 70; Pulse 76; Pulse Ox 100% on R/A; ap3 13:02 BP 120 / 72; Pulse 85; Pulse Ox 100% on R/A; ap3 14:10 BP 103 / 71 LA (auto/lg); Pulse 72; Resp 17; Pulse Ox 100% on R/A; ap3 11:10 Body Mass Index 37.76 (99.79 kg, 162.56 cm) aa5 MDM: 14:25 Patient medically screened. kdr 14:36 Data reviewed: vital signs, nurses notes, lab test result(s), radiologic studies. kdr Counseling: I had a detailed discussion with the patient and/or guardian regarding: the historical points, exam findings, and any diagnostic results supporting the discharge/admit diagnosis, lab results, radiology results, the need for outpatient follow up. ED course: Patient was feeling much better though still under the weather at the time of discharge. She was grateful for the interventions given and stated she did feel better. We discussed her return should things worsen and the Zofran prescription given not managing her nausea. 03/30 11:23 Order name: Basic Metabolic Panel; Complete Time: 12:50 kdr 03/30 11:23 Order name: CBC with Diff; Complete Time: 12:50 kdr 03/30 11:23 Order name: Hepatic Function; Complete Time: 12:50 kdr 03/30 11:23 Order name: Lipase; Complete Time: 12:50 kdr 03/30 11:23 Order name: Blood Culture Adult (2) kdr 03/30 11:43 Order name: COVID-19 SARS RT PCR (Document "Date of Onset" if Symptomatic) ap3 03/30 11:43 Order name: SARS-COV-2 RT PCR; Complete Time: 12:50 EDMS 03/30 12:57 Order name: Strep; Complete Time: 14:19 kdr 03/30 13:20 Order name: Throat Culture EDMS 03/30 11:23 Order name: IV Saline Lock; Complete Time: 11:36 kdr 03/30 11:23 Order name: Labs collected and sent; Complete Time: 11:36 kdr Administered Medications: 11:35 Drug: Ondansetron 4 mg Route: PO; ap3 14:36 Follow up: Response: No adverse reaction; Nausea is decreased ap3 11:35 Drug: Pepcid (famotidine) 20 mg Route: IVP; Site: right antecubital; ap3 14:36 Follow up: Response: No adverse reaction ap3 11:35 Drug: Ketorolac 15 mg Route: IVP; Site: right antecubital; ap3 14:37 Follow up: Response: No adverse reaction ap3 11:36 Drug: NS 0.9% 1000 ml Route: IV; Rate: 1 bolus; Site: right antecubital; ap3 13:04 Follow up: Response: No adverse reaction; IV Status: Completed infusion; IV Intake: tw2 1000ml 14:37 Follow up: IV Status: Completed infusion ap3 Disposition Summary: 03/30/21 14:25 Discharge Ordered Location: Home kdr Problem: new kdr Symptoms: have improved kdr Condition: Stable kdr Diagnosis - Viral infection, unspecified kdr - Fever, unspecified kdr - Vomiting kdr - Acute upper respiratory infection, unspecified kdr Followup: kdr - With: Private Physician - When: 2 - 3 days - Reason: If symptoms return, Further diagnostic work-up, Recheck today's complaints, Continuance of care, Re-evaluation by your physician Discharge Instructions: - Upper Respiratory Infection, Adult kdr - Viral Respiratory Infection, [id number] kdr - Discharge Summary Sheet tw2 - Fever, Adult, [id number] kdr - Vomiting, Adult kdr Forms: - Work release form tw2 - Medication Reconciliation Form kdr - Thank You Letter kdr Prescriptions: - Zofran 4 mg Oral Tablet - take 1 tablet by ORAL route every 4-6 hours As needed; 12 tablet; Refills: 0, kdr Product Selection Permitted Signatures: Dispatcher [employer] Akil Arrieta MD MD kdr Laxmi Singer RN RN aa5 Terri Fritz RN RN ap3 Yani Long RN tw2
[2021-03-30 15:06] VITALS: TEMP 97.7
[2021-03-30 15:07] VITALS: O2SAT 100
[2021-03-30 15:10] VITALS: BP 103/71
== END 2021-03-30 14:36 | disposition home or self-care (01) ==
LOC: ER 10:54
DX: B34.9 Viral infection, unspecified (principal); J06.9 Acute upper respiratory infection, unspecified
CPT/HCPCS: 36415; 80048; 80076; 83690; 85025; 87040; 87070; 87081; 96361; 96374; 96375; 99285; J2405; J7030; U0003

== ENCOUNTER 2021-10-02 09:05 | Emergency (ER) | payer OTHER, SELFPAY ==
--- OUTSIDE RECORDS SUMMARY | 2021-10-02 09:08 | XMS REPORT | Continuity of Care Document ---
:1985 Author Organization [facility] t Address [address] [place] [address] [place] [id number] Care Team Providers Name Role Phone Unavailable Unavailable Unavailable Problems This patient has no known problems. Allergies, Adverse Reactions, Alerts This patient has no known allergies or adverse reactions. Medications This patient has no known medications. Procedures This patient has no known procedures. Results Test Description Test Time Test Comments Results Result Comments Source SARS-CoV-2 (COVID-19), RT-PCR/TMA 2021-07-02 18:09:26 Test Item Value Reference Range Interpretation Comme nts SARS-CoV-2 INTERPRETATION NEGATIVE SEE NOTE S ARS-CoV-2 RNA NOT (test code = 33027) DETECTED Negative results do not preclude SARS-C oV-2 infection and should notb e used as the sole basis for patient management deci sions. Negativeresults must be combined with clinical o bservations, patient history ,and epidemiological information. Optimum specime n types and timingfor peak viral levels during infectio ns caused by SARS-CoV-2 have notbeen determined. Col lection of multiple specim ens or types ofspecimens may be necessary to detect virus. I mproper specimencollect ion and handling, sequence variab ility under primers/probes, or organism present below t he limit of detection may l ead to falsenegative r esults. Positive and negative pr edictive values oftesting are h ighly dependent on prevalence. False negative testresults are more likely when prevalence is h igh. SOURCE (test code = 60516) NASOPHARYNGEAL Note: Methodology is Polly Brodie Real-Time RT-PCR. The expected r esult or reference range is NEGATIVE (Not Detected). For more information regarding COVID -19 testing to include clinica linformation, methodology det ail, intended use, FDA author ization andrecommended fact sheets for patients or hea lthcare providers, see [employer] Announcement: S ARS-CoV-2 (COVID-19) by Herman MERCADO at URL below (note,fact shee ts are provided by method given in report:https:// www.[employer]/all gamboa/jaycee t-communications/ Alternatively, see downloadable PDF fact sheet at:https://www. [employer]/COVID -19-RT-PCR UNLESS OTHERWISE INDIC ATED, ALL TESTING PERFORMED [facility], [facility]. [address] [place] [address] LABORATORY DIRE CTOR: GEOVANI MARQUIS M.D. CLIA NUMBER [id number] [facility] [place]. [id number]
[2021-10-02 09:48] LABS: Absolute Lymphocytes (CBC) 2.7 K/uL (0.7-4.9); Hematocrit 36.2 % (36.0-45.0); Lymphocytes % 27.7 % (15.3-44.8); MPV 7.9 fL (7.6-11.3); RBC Red Blood Cell Count 4.15 M/uL (3.86-4.86)
[2021-10-02 10:08] LABS: Potassium 3.8 mmol/L (3.5-5.1); Troponin High Sensitivity 3.8 pg/mL (<58.9)
--- NOTE | 2021-10-02 11:06 | RAD REPORT ---
EXAM DESCRIPTION: RAD - Chest Single View - 10/02/2021 10:48 am CLINICAL HISTORY: chest tightness Chest pain. COMPARISON: Chest Single View dated 03/08/2018 FINDINGS: Portable technique limits examination quality. The lungs are grossly clear. The heart is normal in size. No displaced fractures. IMPRESSION: No acute intrathoracic process suspected.
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
[2021-10-02 11:58] VITALS: BP 111/73; TEMP 98.2; O2SAT 99
--- NOTE | 2021-10-03 09:13 | EKG ---
Test Date: 2021-10-02 Test Time: 09:22:32 Crime Specialist: ANGELLA MEASUREMENT RESULTS: Intervals: Rate: 76 MN: 148 QRSD: 86 QT: 378 QTc: 425 [place]: P: 51 MN: 148 QRS: 79 T: 63 INTERPRETIVE STATEMENTS: Normal sinus rhythm Normal ECG No previous ECG available for comparison Electronically Signed On 10-03-21 09:08:32 CDT by Tony Muñoz
== END 2021-10-02 11:47 | disposition home or self-care (01) ==
LOC: ER 09:05
DX: J70.5 Respiratory conditions due to smoke inhalation (principal); R06.02 Shortness of breath; T59.811A Toxic effect of smoke, accidental (unintentional), initial encounter; F17.210 Nicotine dependence, cigarettes, uncomplicated; Y92.511 Restaurant or cafe as the place of occurrence of the external cause
CPT/HCPCS: 36415; 71045; 80048; 84484; 85025; 93005; 99284

== ENCOUNTER 2021-11-04 07:56 | Emergency (ER) | payer BC, SELFPAY ==
--- OUTSIDE RECORDS SUMMARY | 2021-11-04 08:00 | XMS REPORT | Continuity of Care Document ---
:1985 Author Organization [facility] t Address [address] [place] [address] [address]. [address] [place] [address] Care Team Providers Name Role Phone Unavailable [...] S ARS-CoV-2 RNA NOT (test code = 90785) DETECTED Negative results do not preclude SARS-C [...] is h igh. SOURCE (test code = 21549) NASOPHARYNGEAL Note: Methodology is Polly Brodie Real-Time RT-PCR. The expected r esult or reference range is NEGATIVE (Not Detected). For more information regarding COVID -19 testing to include clinica linformation, methodology det ail, intended use, FDA author ization andrecommended fact sheets for patients or hea lthcare providers, see [employer] Announcement: S ARS-CoV-2 (COVID-19) by Herman MERCADO at URL below (note,fact shee ts are provided by method given in report:https:// www.[employer]/all gamboa/jaycee t-communications/ Alternatively, see downloadable PDF fact sheet at:https://www. [employer]/COVID -19-RT-PCR UNLESS OTHERWISE INDIC ATED, ALL TESTING PERFORMED [facility], [place] [address] LABORATORY DIRE CTOR: GEOVANI MARQUIS M.D. CLIA NUMBER [id number] [facility] [place]. [id number]
[2021-11-04] MEDS ORDERED: ACETAMINOPHEN 500 MG TAB ONE (08:37)
--- NOTE | 2021-11-04 08:42 | EDPHYS ---
Physician Documentation [facility] Name: Katy Khalil Age: 36 yrs Sex: Female : 1985 Arrival Date: 11/04/2021 Time: 08:02 Bed 15 Private MD: ED Physician Jw Martinez HPI: 11/04 08:39 This 36 yrs old Female presents to ER via Ambulatory with complaints of covid ma2 symptoms. 08:39 Patient has cough runny nose congestion for 2 days, mild intermittent no chest pain.. 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 - Social history:: Smoking status: Patient reports the use of cigarette tobacco products, denies chronic smoking, but will smoke occasionally. - Family history:: not pertinent. ROS: 08:39 Constitutional: Negative for fever, chills, and weight loss. ma2 08:39 All other systems are negative. Exam: 08:39 Constitutional: This is a well developed, well nourished patient who is awake, alert, ma2 and in no acute distress. Head/Face: Normocephalic, atraumatic. Eyes: Pupils equal round and reactive to light, extra-ocular motions intact. Lids and lashes normal. Conjunctiva and sclera are non-icteric and not injected. Cornea within normal limits. Periorbital areas with no swelling, redness, or edema. ENT: Nares patent. No nasal discharge, no septal abnormalities noted. Tympanic membranes are normal and external auditory canals are clear. Oropharynx with no redness, swelling, or masses, exudates, or evidence of obstruction, uvula midline. Mucous membranes moist. Neck: Trachea midline, no thyromegaly or masses palpated, and no cervical lymphadenopathy. Supple, full range of motion without nuchal rigidity, or vertebral point tenderness. No Meningismus. Chest/axilla: Normal chest wall appearance and motion. Nontender with no deformity. No lesions are appreciated. Cardiovascular: Regular rate and rhythm with a normal S1 and S2. No gallops, murmurs, or rubs. Normal PMI, no JVD. No pulse deficits. Respiratory: Lungs have equal breath sounds bilaterally, clear to auscultation and percussion. No rales, rhonchi or wheezes noted. No increased work of breathing, no retractions or nasal flaring. Abdomen/GI: Soft, non-tender, with normal bowel sounds. No distension or tympany. No guarding or rebound. No evidence of tenderness throughout. Back: No spinal tenderness. No costovertebral tenderness. Full range of motion. Skin: Warm, dry with normal turgor. Normal color with no rashes, no lesions, and no evidence of cellulitis. MS/ Extremity: Pulses equal, no cyanosis. Neurovascular intact. Full, normal range of motion. Neuro: Awake and alert, GCS 15, oriented to person, place, time, and situation. Cranial nerves II-XII grossly intact. Motor strength 5/5 in all extremities. Sensory grossly intact. Cerebellar exam normal. Normal gait. Vital Signs: 08:23 BP 118 / 83; Pulse 82; Resp 18 S; Temp 97(TE); Pulse Ox 100% on R/A; Weight 86.18 kg jd3 (R); Height 5 ft. 2 in. (157.48 cm) (R); Pain 8/10; 08:57 BP 97 / 61; Pulse 80; Resp 17 S; Pulse Ox 100% on R/A; jd3 08:23 Body Mass Index 34.75 (86.18 kg, 157.48 cm) [facility] MDM: 08:33 Patient medically screened. ma2 08:39 Differential Diagnosis: Bronchitis Upper Respiratory Infection Sinusitis. Data ma2 reviewed: vital signs, nurses notes, EMS record. Counseling: I had a detailed discussion with the patient and/or guardian regarding: the historical points, exam findings, and any diagnostic results supporting the discharge/admit diagnosis, the presence of at least one elevated blood pressure reading (>120/80) during this emergency department visit, the need for outpatient follow up. Response to treatment: the patient's symptoms have markedly improved after treatment. 11/04 08:29 Order name: SARS-COV-2 RT PCR (Document "Date of Onset" if Symptomatic) jd3 Administered Medications: 08:36 Drug: Tylenol 1000 mg Route: PO; jd3 08:58 Follow up: Response: No adverse reaction jd3 Disposition Summary: 11/04/21 08:41 Discharge Ordered Location: Home ma2 Condition: Stable ma2 Diagnosis - Acute pharyngitis, unspecified ma2 Followup: ma2 - With: Private Physician - When: Tomorrow - Reason: If symptoms return, Continuance of care Discharge Instructions: - Discharge Summary Sheet ma2 - Pharyngitis ma2 Forms: - Medication Reconciliation Form ma2 - Thank You Letter ma2 - Antibiotic Education ma2 - Prescription Opioid Use ma2 Prescriptions: - Diclofenac Sodium 75 mg Oral Tablet Sustained Release - take 1 tablet by ORAL route 2 times per day; 30 tablet; Refills: 0, Product ma2 Selection Permitted - Zithromax Z-Angelo 250 mg Oral Tablet - take 1 tablet by ORAL route as directed for 5 days Day 1 - take two (2) tablets ma2 one time. Day 2, 3, 4 , 5 take one (1) tablet once daily.; 6 tablet; Refills: 0, Product Selection Permitted - Medrol (Angelo) 4 mg Oral Tablets, Dose Pack - take 1 tablet by ORAL route as directed - follow package instructions; 1 ma2 packet; Refills: 0, Product Selection Permitted Signatures: Dispatcher [employer] Zaheer Stuart RN RN jd3 Alzahri, Mohammad, MD MD ma2
--- NOTE | 2021-11-04 08:42 | ER ---
Nurse's Notes [facility] Name: Katy Khalil Age: 36 yrs Sex: Female : 1985 Arrival Date: 11/04/2021 Time: 08:02 Bed 15 Private MD: Diagnosis: Acute pharyngitis, unspecified Presentation: 11/04 08:21 Chief complaint: Patient states: "My got tested yesterday here and came back jd3 COVID +. I have been having fatigue, nausea, chills, and a cough for 5 days and I am concerned I am COVID + too.". Coronavirus screen: chills, cough unrelated to allergies, difficulty breathing, fatigue, muscle pain, nausea, Client presents with at least one sign or symptom that may indicate coronavirus-19. Standard/surgical mask placed on the client. Provider contacted for isolation considerations. Ebola Screen: No symptoms or risks identified at this time. Initial Sepsis Screen: Does the patient meet any 2 criteria? No. Patient's initial sepsis screen is negative. Does the patient have a suspected source of infection? No. Patient's initial sepsis screen is negative. Risk Assessment: Do you want to hurt yourself or someone else? Patient reports no desire to harm self or others. Onset of symptoms was October 30, 2021. 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 - Social history:: Smoking status: Patient reports the use of cigarette tobacco products, denies chronic smoking, but will smoke occasionally. - Family history:: not pertinent. Screenin:27 Abuse screen: Denies threats or abuse. Nutritional screening: No deficits noted. jd3 Tuberculosis screening: No symptoms or risk factors identified. Fall Risk Ambulatory Aid- None/Bed Rest/Nurse Assist (0 pts). Gait- Normal/Bed Rest/Wheelchair (0 pts) Mental Status- Oriented to own ability (0 pts). Total Riojas Fall Scale indicates No Risk (0-24 pts). Assessment: 08:24 General: Appears in no apparent distress. comfortable, Behavior is calm, cooperative, jd3 appropriate for age. Pain: Complains of pain in head and back Quality of pain is described as aching. Neuro: Cabrera Agitation-Sedation Scale (RASS): 0 - Alert and Calm Level of Consciousness is awake, alert, obeys commands, Oriented to person, place, time, situation. Cardiovascular: Capillary refill < 3 seconds Patient's skin is warm and dry. Respiratory: Reports shortness of breath on exertion cough that is dry, Airway is patent Respiratory effort is even, unlabored, Respiratory pattern is regular, symmetrical. GI: Reports nausea. : No signs and/or symptoms were reported regarding the genitourinary system. EENT: No signs and/or symptoms were reported regarding the EENT system. Derm: Skin is intact, Skin is dry, Skin is normal, Skin temperature is warm. Musculoskeletal: Circulation, motion, and sensation intact. Range of motion: intact in all extremities. 08:57 Reassessment: Patient appears in no apparent distress at this time. Patient and/or jd3 family updated on plan of care and expected duration. Pain level reassessed. Patient is alert, oriented x 3, equal unlabored respirations, skin warm/dry/pink. Vital Signs: 08:23 BP 118 / 83; Pulse 82; Resp 18 S; Temp 97(TE); Pulse Ox 100% on R/A; Weight 86.18 kg jd3 (R); Height 5 ft. 2 in. (157.48 cm) (R); Pain 8/10; 08:57 BP 97 / 61; Pulse 80; Resp 17 S; Pulse Ox 100% on R/A; jd3 08:23 Body Mass Index 34.75 (86.18 kg, 157.48 cm) d3 ED Course: 08:02 Patient arrived in ED. am2 08:18 Zaheer Gamino RN is Primary Nurse. jd3 08:23 Triage completed. jd3 08:24 Jw Martinez MD is Attending Physician. ma2 08:24 Arm band placed on. jd3 08:27 Patient has correct armband on for positive identification. Bed in low position. Call j light in reach. Side rails up X 1. Pulse ox on. NIBP on. 08:57 No provider procedures requiring assistance completed. Patient did not have IV access j during this emergency room visit. Administered Medications: 08:36 Drug: Tylenol 1000 mg Route: PO; jd3 08:58 Follow up: Response: No adverse reaction jd3 Medication: 08:27 VIS not applicable for this client. jd3 Outcome: 08:41 Discharge ordered by . steff 08:58 Discharged to home ambulatory, with family. jd3 08:58 Condition: stable 08:58 Discharge instructions given to patient, Instructed on discharge instructions, follow up and referral plans. medication usage, Demonstrated understanding of instructions, follow-up care, medications, Prescriptions given X 3. 08:58 Patient left the ED. jd3 Signatures: Terri Castaneda Jonathon, RN RN jd3 Jw Martinez MD MD ma2
[2021-11-04 09:31] VITALS: TEMP 97; O2SAT 100
[2021-11-04 10:05] VITALS: BP 97/61
== END 2021-11-04 08:58 | disposition home or self-care (01) ==
LOC: ER 07:56
DX: J02.9 Acute pharyngitis, unspecified (principal); Z20.822 Contact with and (suspected) exposure to COVID-19; Z72.0 Tobacco use
CPT/HCPCS: 99283; U0003

== ENCOUNTER 2021-12-26 20:10 | Emergency (ER) | payer BC, OTHER ==
--- OUTSIDE RECORDS SUMMARY | 2021-12-26 20:39 | XMS REPORT | Continuity of Care Document ---
:1985 Author Organization [facility] t Address [address] [place] [address] [address]. [address] [place] [address] Care Team Providers Name Role Phone Unavailable [...] S ARS-CoV-2 RNA NOT (test code = 11430) DETECTED Negative results do not preclude SARS-C oV-2 infection and should notb e used as the sole basis for patient management deci sions. Negativeresults must be combined with c linical observations, p atient history,and epi demiological information. Op timum specimen types and timin gfor peak viral levels during i nfections caused by SARS-CoV-2 h ave notbeen determined. Col lection of multiple specim ens or types ofspecimens may be necessary to detect virus. I mproper specimencollect ion and handling, seque nce variability under primers/p robes,or organism presen t below the limit of detect ion may lead to falsenegative r esults. Positive and negative pr edictive values oftesting are h ighly dependent on prevalence. False negative testresults are more likely when prevalence is high. SOURCE (test code = 53835) NASOPHARYNGEAL Note: Methodology is Polly Brodie Real-Time RT-PCR. The expected result or reference range is NEGATI VE (Not Detected). For more information regarding COVID -19 testing to include clinica linformation, methodology det ail, intended use, FDA author ization andrecommended fact sheets for patients or hea lthcare providers, see [facility] Announcement: S ARS-CoV-2 (COVID-19) by N JESS at URL below (note,fact shee ts are provided by method given in report:https:// www.[employer]/ clinicians/kalli nt-communication s/ Alternativel y, see downloadable PD F fact sheet at:https://www. [employer]/COVI D-19-RT-PCR UNL ESS OTHERWISE INDICATED, ALL TESTING PERFORMED [facility], [facility]. [address] [place] [address] 4 COUNTY COMMISSIONER: Fredrick MONZON [id number] [employer] ACCREDITATION N O. [id number]
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
== END 2021-12-26 23:56 | disposition left against medical advice (07) ==
LOC: ER 20:10
DX: Z02.9 Encounter for administrative examinations, unspecified (principal)

== ENCOUNTER 2022-02-04 11:58 | Emergency (ER) | payer BC ==
--- OUTSIDE RECORDS SUMMARY | 2022-02-04 12:01 | XMS REPORT | Continuity of Care Document ---
:1985 Author Organization [facility] t Address [address] [place] [address] Care Team Providers Name Role Phone Unavailable [...] S ARS-CoV-2 RNA NOT (test code = 83163) DETECTED Negative results do not preclude SARS-C [...] prevalence is high. SOURCE (test code = 12160) NASOPHARYNGEAL Note: Methodology is Polly Brodie Real-Time RT-PCR. The expected result or reference range is NEGATI VE (Not Detected). For more information regarding COVID -19 testing to include clinica linformation, methodology det ail, intended use, FDA author ization andrecommended fact sheets for patients or hea lthcare providers, see [facility] Announcement: S ARS-CoV-2 (COVID-19) by Herman MERCADO at URL below (note,fact shee ts are provided by method given in report:https:// www.[employer]/ clinicians/kalli nt-communication s/ Alternativel y, see downloadable PD F fact sheet at:https://www. [employer]/COVI D-19-RT-PCR UNL ESS OTHERWISE INDICATED, ALL TESTING PERFORMED [facility], [facility]. [address] [place] [address] 4 PROGRAM SCHEDULER: Fredrick MONZON [id number] CAP ACCREDITATION N O. [id number]
[2022-02-04] MEDS ORDERED: IBUPROFEN 400 MG TAB ONE (12:56)
[2022-02-04] MEDS ORDERED: hydrOXYzine HCL 25 MG TAB ONE (12:56)
--- NOTE | 2022-02-04 15:17 | RAD REPORT ---
EXAM DESCRIPTION: RAD - Chest Single View - 02/04/2022 2:32 pm CLINICAL HISTORY: cough, fever, sob COMPARISON: Portable 10/02/2021 TECHNIQUE: AP portable chest image was obtained 02/04/2022 2:32 pm . FINDINGS: Lungs are clear. Heart and vasculature are normal. No measurable pleural effusion and no p neumothorax. No acute bony abnormality seen. No acute aortic findings suspected. IMPRESSION: No acute cardiopulmonary process. No significant change from comparison study.
--- NOTE | 2022-02-04 15:45 | ER ---
Nurse's Notes [facility] Name: Katy Khalil Age: 36 yrs Sex: Female : 1985 Arrival Date: 02/04/2022 Time: 12:01 Bed 11 Private MD: Diagnosis: Acute pharyngitis, unspecified Presentation: 02/04 12:12 Chief complaint: Sore throat, congestion, cough, body aches, headache, and chills x 4 hb days. Coronavirus screen: Client presents with at least one sign or symptom that may indicate coronavirus-19. Standard/surgical mask placed on the client. Provider contacted for isolation considerations. Ebola Screen: No symptoms or risks identified at this time. Risk Assessment: Do you want to hurt yourself or someone else? Patient reports no desire to harm self or others. Onset of symptoms was January 31, 2022. 12:12 Method Of Arrival: Ambulatory hb 12:12 Acuity: KIRIT 4 hb 13:00 Initial Sepsis Screen: Does the patient meet any 2 criteria? No. Patient's initial kb3 sepsis screen is negative. Does the patient have a suspected source of infection? No. Patient's initial sepsis screen is negative. 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 - Social history:: Smoking status: Patient denies any tobacco usage or history of. Screenin:40 Abuse screen: Denies threats or abuse. Denies injuries from another. Nutritional kb3 screening: No deficits noted. Tuberculosis screening: No symptoms or risk factors identified. Fall Risk None identified. Assessment: 12:40 General: Appears in no apparent distress. Behavior is cooperative, anxious, crying, kb3 Received care of pt from [facility] [employer]. Pt is AAO x4, crying. Reports she is very anxious due to feeling unwell and having multiple responsibilities at home. States feeling unwell x4 days including vomiting, cough, congestion, headache, fever, diarrhea. 12:40 Pain: Complains of pain in head Pain does not radiate. Pain currently is 8 out of 10 on kb3 a pain scale. Quality of pain is described as aching, pressure, Pain began intermittent xseveral days. 12:40 Neuro: No deficits noted. Reports headache in entire. EENT: Reports nasal congestion kb3 nasal discharge that is yellow that is watery. 13:22 General: Pt resting quietly, eyes closed. kb3 15:00 General: Pt continues resting quietly. No s/s of distress. kb3 Vital Signs: 12:12 BP 138 / 88; Pulse 84; Resp 18; Temp 99.1; Pulse Ox 100% on R/A; Weight 90.72 kg; hb Height 5 ft. 2 in. (157.48 cm); Pain 10/10; 16:07 BP 127 / 78; Pulse 78; Resp 20; Pulse Ox 99% ; kb3 12:12 Body Mass Index 36.58 (90.72 kg, 157.48 cm) hb ED Course: 12:01 Patient arrived in ED. mr 12:07 Romeo Dean PA is PHCP. jmm 12:07 Giovani Hull MD is Attending Physician. m 12:13 Triage completed. hb 12:13 Arm band placed on. hb 12:28 Genny North, RN is Primary Nurse. kb3 12:38 COVID swab sent to lab. Flu and/or RSV swab sent to lab. Strep swab sent to lab. tm3 12:40 Patient has correct armband on for positive identification. Bed in low position. Call kb3 light in reach. Side rails up X 1. Warm blanket given. 12:40 No provider procedures requiring assistance completed. kb3 14:34 Chest Single View XRAY In Process Unspecified. EDMS 16:20 Patient did not have IV access during this emergency room visit. kb3 Administered Medications: 12:53 Drug: hydrOXYzine 50 mg Route: PO; kb3 13:45 Follow up: Response: No adverse reaction; Anxiety decreased kb3 12:53 Drug: Ibuprofen 800 mg Route: PO; kb3 13:45 Follow up: Response: No adverse reaction; Pain is decreased kb3 16:07 Drug: Decadron (dexamethasone) 10 mg Route: IM; Site: left ventrogluteal; kb3 16:20 Follow up: Response: No adverse reaction kb3 Medication: 12:40 VIS not applicable for this client. kb3 Outcome: 15:44 Discharge ordered by . [facility] 16:20 Discharged to home ambulatory. kb3 16:20 Condition: stable 16:20 Discharge instructions given to patient, Instructed on discharge instructions, follow up and referral plans. medication usage, Demonstrated understanding of instructions, follow-up care, medications, Prescriptions given X 2. 16:33 Patient left the ED. kb3 Signatures: Dispatcher [employer] EDMarquise Munoz tm3 Romeo Dean PA PA jmm Chung, Darcie mr Maria Elena Perkins RN RN hb Bradberry, Kelly, RN RN kb3 Corrections: (The following items were deleted from the chart) 13:02 12:40 General: Appears in no apparent distress. Behavior is cooperative, anxious, kb3 crying, Received care of pt from [facility]. Pt is AAO x4, crying. Reports she is very anxious due to feeling unwell and having multiple responsibilities at home. States feeling unwell x1 week including vomiting, cough, congestion, headache, fever, diarrhea. kb3
--- NOTE | 2022-02-04 15:45 | EDPHYS ---
Physician Documentation [facility] Name: Katy Khalil Age: 36 yrs Sex: Female : 1985 Arrival Date: 02/04/2022 Time: 12:01 Bed 11 Private MD: ED Physician Giovani Hull HPI: 02/04 12:15 This 36 yrs old Female presents to ER via Ambulatory with complaints of Flu jm Symptoms. 12:15 The patient or guardian reports cough. Onset: The symptoms/episode began/occurred jmm gradually, 4 day(s) ago. Modifying factors: The symptoms are alleviated by nothing. the symptoms are aggravated by nothing. Associated signs and symptoms: Pertinent positives: fever, sore throat. 12:15 It is unknown whether or not the patient has had similar symptoms in the past. 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 - Social history:: Smoking status: Patient denies any tobacco usage or history of. ROS: 12:15 Constitutional: Positive for body aches, chills. jmm 12:15 ENT: Positive for sore throat. 12:15 Respiratory: Positive for cough. 12:15 All other systems are negative. Exam: 12:15 Head/Face: atraumatic. Eyes: EOMI, no conjunctival erythema appreciated jm 12:15 Neck: Trachea midline, Supple Chest/axilla: Normal chest wall appearance and motion. Cardiovascular: Regular rate and rhythm. No edema appreciated Respiratory: Normal respirations, no respiratory distress appreciated Abdomen/GI: Non distended Back: Normal ROM Skin: General appearance color normal MS/ Extremity: Moves all extremities, no obvious deformities appreciated, no edema noted to the lower extremities Neuro: Awake and alert Psych: Behavior is normal, Mood is normal, Patient is cooperative and pleasant 12:15 Constitutional: The patient appears alert, awake, anxious, uncomfortable. 12:15 ENT: Posterior pharynx: erythema, that is mild, Dental exam: Vital Signs: 12:12 BP 138 / 88; Pulse 84; Resp 18; Temp 99.1; Pulse Ox 100% on R/A; Weight 90.72 kg; hb Height 5 ft. 2 in. (157.48 cm); Pain 10/10; 16:07 BP 127 / 78; Pulse 78; Resp 20; Pulse Ox 99% ; kb3 12:12 Body Mass Index 36.58 (90.72 kg, 157.48 cm) hb MDM: 12:15 Patient medically screened. [facility] 15:44 Data reviewed: vital signs, nurses notes. Counseling: I had a detailed discussion with [facility] the patient and/or guardian regarding: the historical points, exam findings, and any diagnostic results supporting the discharge/admit diagnosis, lab results, radiology results, the need for outpatient follow up, to return to the emergency department if symptoms worsen or persist or if there are any questions or concerns that arise at home. Response to treatment: the patient's symptoms have markedly improved after treatment. 02/04 12:24 Order name: Influenza Screen (a \\T\\ B); Complete Time: 13:08 [facility] 02/04 12:24 Order name: Strep; Complete Time: 13:08 [facility] 02/04 12:24 Order name: SARS-COV-2 RT PCR (Document "Date of Onset" if Symptomatic); Complete Time: [facility] 14:01 02/04 12:24 Order name: Chest Single View XRAY; Complete Time: 15:20 [facility] 02/04 13:10 Order name: Throat Culture EDMS Administered Medications: 12:53 Drug: hydrOXYzine 50 mg Route: PO; kb3 13:45 Follow up: Response: No adverse reaction; Anxiety decreased kb3 12:53 Drug: Ibuprofen 800 mg Route: PO; kb3 13:45 Follow up: Response: No adverse reaction; Pain is decreased kb3 16:07 Drug: Decadron (dexamethasone) 10 mg Route: IM; Site: left ventrogluteal; kb3 16:20 Follow up: Response: No adverse reaction kb3 Disposition: 17:21 Co-signature as Attending Physician, Giovani Hull MD. rn Disposition Summary: 02/04/22 15:44 Discharge Ordered Location: Home [facility] Condition: Stable [facility] Diagnosis - Acute pharyngitis, unspecified [facility] Followup: [facility] - With: Private Physician - When: 2 - 3 days - Reason: Recheck today's complaints, Continuance of care, Re-evaluation by your physician Discharge Instructions: - Discharge Summary Sheet [facility] - Pharyngitis [facility] Forms: - Medication Reconciliation Form m - Thank You Letter jmm - Antibiotic Education m - Prescription Opioid Use jm - Work release form kb3 Prescriptions: - cefdinir 300 mg Oral capsule - take 1 capsule by ORAL route every 12 hours for 10 days; 20 capsule; Refills: [facility] 0, Product Selection Permitted - Hydroxyzine HCl 50 mg Oral Tablet - take 1 tablet by ORAL route every 8 hours As needed; 30 tablet; Refills: 0, m Product Selection Permitted Signatures: Dispatcher [employer] Romeo Justin PA PA jmm Nieto, Roman, MD MD rn Baxter, Heather, RN RN Genny North RN RN kb3
[2022-02-04] MEDS ORDERED: dexAMETHasone 10 MG/ML VIAL ONE (16:00)
[2022-02-06 07:27] VITALS: TEMP 99.1
[2022-02-06 07:33] VITALS: BP 127/78; O2SAT 99
== END 2022-02-04 16:33 | disposition home or self-care (01) ==
LOC: ER 11:58
DX: J02.9 Acute pharyngitis, unspecified (principal); R05.9 Cough, unspecified; Z20.822 Contact with and (suspected) exposure to COVID-19
CPT/HCPCS: 87070; 87081; 87804 ×2; 71045; 96372; 99284; U0003; J1100

== ENCOUNTER 2022-06-25 08:29 | Emergency (ER) | payer BC ==
--- OUTSIDE RECORDS SUMMARY | 2022-06-25 08:37 | XMS REPORT | Continuity of Care Document ---
:1985 Author Organization [facility] t Address [address] [place] [address] Care Team Providers Name Role Phone Unavailable [...] S ARS-CoV-2 RNA NOT (test code = 78926) DETECTED Negative results do not preclude SARS-C [...] prevalence is high. SOURCE (test code = 94329) NASOPHARYNGEAL Note: Methodology is Polly Brodie Real-Time RT-PCR. The expected result or reference range is NEGATI VE (Not Detected). For more information regarding COVID -19 testing to include clinica linformation, methodology det ail, intended use, FDA author ization andrecommended fact sheets for patients or hea lthcare providers, see [facility] Announcement: S ARS-CoV-2 (COVID-19) by Herman MERCADO at URL below (note,fact shee ts are provided by method given in report:https:// www.XDC/ clinicians/kalli nt-communication s/ Alternativel y, see downloadable PD F fact sheet at:https://www. XDC/COVI D-19-RT-PCR UNL ESS OTHERWISE INDICATED, ALL TESTING PERFORMED [facility], [facility]. [address] [place] [address] 4 SETUP OPERATOR: Fredrick MONZON [id number] CAP ACCREDITATION N O. [id number]
[2022-06-25 09:24] LABS: Absolute Lymphocytes (CBC) 2.2 K/uL (0.7-4.9); Hematocrit 36.5 % (36.0-45.0); Lymphocytes % 21.2 % (15.3-44.8); MCV 87.8 fL (80-100); MPV 7.8 fL (7.6-11.3); RBC Red Blood Cell Count 4.16 M/uL (3.86-4.86)
[2022-06-25 09:42] LABS: Albumin 3.1 g/dL (3.4-5.0); Bilirubin Total 0.2 mg/dL (0.2-1.0); Potassium 4.1 mmol/L (3.5-5.1); Protein, Total 7.3 g/dL (6.4-8.2)
[2022-06-25 10:10] LABS: Urine Blood Trace-intact (Negative); Urine Glucose Negative (Negative); Urine Protein Negative (Negative); Urine Specific Gravity >=1.030 (1.005-1.030); Urine pH 5.5 (5.0-7.0)
[2022-06-25 10:14] LABS: Urine Specific Gravity/Preg >1.030 (1.005-1.030)
[2022-06-25 10:19] LABS: Urine Bacteria <20 /HPF (<20); Urine Mucus Slight /HPF (None Seen); Urine RBC <5 /HPF (None Seen)
[2022-06-25 10:21] LABS: SARS-COV-2 RT PCR NEGATIVE (NEGATIVE)
[2022-06-25] MEDS ORDERED: KETOROLAC 30 MG/ML INJ ONE (10:32)
--- NOTE | 2022-06-25 12:13 | RAD REPORT ---
EXAM DESCRIPTION: CTAbdomen Pelvis W Contrast - 06/25/2022 11:54 am CLINICAL HISTORY: Abdominal pain. FLANK PAIN COMPARISON: No comparisons TECHNIQUE: Biphasic CT imaging of the abdomen and pelvis was performed with 100 ml non-ionic IV cont rast. All CT scans are performed using dose optimization technique as appropriate and may include automated exposure control or mA/KV adjustment according to patient size. FINDINGS: The lung bases are clear. The liver is diffusely fatty. Cholecystectomy. Spleen, pancreas, adrenal glands and kidneys are withi n normal limits. No bowel obstruction, free air, free fluid or abscess. The appendix is normal. No evidence of signi ficant lymphadenopathy. Mild lower lumbar degenerative changes. IMPRESSION: No acute intra-abdominal or pelvic finding.
--- NOTE | 2022-06-25 12:18 | EDPHYS ---
Physician Documentation [facility] Name: Katy Khalil Age: 37 yrs Sex: Female : 1985 Arrival Date: 06/25/2022 Time: 08:33 Bed 9 Private MD: None, None ED Physician Giovani Hull HPI: 06/25 08:45 This 37 yrs old Female presents to ER via Ambulatory with complaints of jh7 Headache, Weakness, Vomiting/Diarrhea. 08:45 Onset: The symptoms/episode began/occurred 3 day(s) ago. 37-year-old female complains jh7 of headache, fatigue, nausea, vomiting, diarrhea, and body aches/back pain for the past 3 days. 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 Denies any medical problems or allergies. Reports that she is eating fine but feels dehydrated.. 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 - Social history:: Smoking status: Patient denies any tobacco usage or history of. ROS: 08:45 Eyes: Negative for injury, pain, redness, and discharge, ENT: Negative for injury, jh7 pain, and discharge, Neck: Negative for injury, pain, and swelling, Cardiovascular: Negative for chest pain, palpitations, and edema, Respiratory: Negative for shortness of breath, cough, wheezing, and pleuritic chest pain. 08:45 MS/Extremity: Negative for injury and deformity, Skin: Negative for injury, rash, and discoloration. 08:45 Constitutional: Positive for body aches, fatigue, Negative for fever. 08:45 Abdomen/GI: Positive for nausea, vomiting, and diarrhea, Negative for abdominal pain, rectal bleeding. 08:45 Back: Positive for pain at rest. 08:45 Neuro: Positive for headache, Negative for altered mental status, dizziness, gait disturbance, loss of consciousness, speech changes, visual changes. 08:45 All other systems are negative. Exam: 08:45 Head/Face: Normocephalic, atraumatic. Eyes: Pupils equal round and reactive to light, jh7 extra-ocular motions intact. Lids and lashes normal. Conjunctiva and sclera are non-icteric and not injected. Cornea within normal limits. Periorbital areas with no swelling, redness, or edema. ENT: Nares patent. No nasal discharge, no septal abnormalities noted. Oropharynx with no redness, swelling, or masses, exudates, or evidence of obstruction, uvula midline. Mucous membranes moist. Neck: Trachea midline, no thyromegaly or masses palpated, and no cervical lymphadenopathy. Supple, full range of motion without nuchal rigidity, or vertebral point tenderness. No Meningismus. Cardiovascular: Regular rate and rhythm with a normal S1 and S2. No gallops, murmurs, or rubs. Normal PMI, no JVD. No pulse deficits. Respiratory: Lungs have equal breath sounds bilaterally, clear to auscultation and percussion. No rales, rhonchi or wheezes noted. No increased work of breathing, no retractions or nasal flaring. Skin: Warm, dry with normal turgor. Normal color with no rashes, no lesions, and no evidence of cellulitis. MS/ Extremity: Pulses equal, no cyanosis. Neurovascular intact. Full, normal range of motion. Neuro: Awake and alert, GCS 15, oriented to person, place, time, and situation. Motor strength 5/5 in all extremities. Sensory grossly intact. Normal gait. 08:45 Constitutional: The patient appears alert, awake, uncomfortable. 08:45 Abdomen/GI: Inspection: abdomen appears normal, Bowel sounds: normal, Palpation: abdomen is soft and non-tender, in all quadrants. 08:45 Back: pain, that is mild, ROM is normal, normal spinal alignment noted, CVA tenderness, is absent. Vital Signs: 08:40 BP 133 / 77; Pulse 84; Resp 18; Temp 97.4; Pulse Ox 100% ; Weight 95.25 kg; Height 5 jh5 ft. 2 in. (157.48 cm); Pain 7/10; 09:42 BP 112 / 76; Pulse 92; Resp 16; Pulse Ox 99% ; eh3 10:32 BP 113 / 70; Pulse 91; Resp 18; Pulse Ox 97% on R/A; eh3 11:30 BP 122 / 60; Pulse 77; Resp 16; Pulse Ox 97% on R/A; eh3 08:40 Body Mass Index 38.41 (95.25 kg, 157.48 cm) 5 MDM: 08:33 Patient medically screened. [facility] 12:25 Differential diagnosis: Colitis, pyelonephritis, gastroenteritis. Data reviewed: vital [facility] signs, nurses notes. I considered the following discharge prescriptions or medication management in the emergency department Medications were administered in the Emergency Department. See MAR. Counseling: I had a detailed discussion with the patient and/or guardian regarding: the historical points, exam findings, and any diagnostic results supporting the discharge/admit diagnosis, to return to the emergency department if symptoms worsen or persist or if there are any questions or concerns that arise at home. Response to treatment: the patient's symptoms have markedly improved after treatment. 06/25 08:40 Order name: CBC with Diff [facility] 06/25 08:40 Order name: CMP [facility] 06/25 08:40 Order name: Lipase [facility] 06/25 08:40 Order name: Urine Microscopic Only [facility] 06/25 08:40 Order name: COVID-19/FLU A+B [facility] 06/25 09:25 Order name: CBC with Automated Diff; Complete Time: 09:29 [facility] 06/25 09:43 Order name: Comprehensive Metabolic Panel; Complete Time: 09:48 [facility] 06/25 09:43 Order name: Lipase; Complete Time: 09:48 [facility] 06/25 10:10 Order name: Urine Dipstick-Ancillary; Complete Time: 10:18 [facility] 06/25 10:12 Order name: Urine --Ancillary (enter results) 06/25 10:14 Order name: Urine --Ancillary; Complete Time: 10:18 [facility] 06/25 10:19 Order name: Urine Microscopic Only; Complete Time: 10:30 [facility] 06/25 10:21 Order name: COVID-19/FLU A+B; Complete Time: 10:30 [facility] 06/25 10:33 Order name: CT Abd/Pelvis - IV Contrast Only [facility] 06/25 08:40 Order name: IV Saline Lock; Complete Time: 09:17 [facility] 06/25 08:40 Order name: Labs collected and sent; Complete Time: 09:17 [facility] 06/25 08:40 Order name: Urine Dipstick-Ancillary (obtain specimen); Complete Time: 10:11 [facility] 06/25 08:40 Order name: Urine Test (obtain specimen); Complete Time: : [facility] 06/25 12:13 Order name: CT; Complete Time: 12:16 EDMS Administered Medications: 09:00 Drug: NS 0.9% 1000 ml Route: IV; Rate: 1 bolus; Site: right antecubital; 3 10:00 Follow up: IV Status: Completed infusion; IV Intake: 1000ml [facility] 09:00 Drug: Pepcid (famotidine) 20 mg Route: IVP; Site: right antecubital; 3 10:11 Follow up: Response: No adverse reaction 3 09:00 Drug: TORadol - (ketorolac) 15 mg Route: IVP; Site: right antecubital; 3 10:11 Follow up: Response: Pain is decreased 3 09:00 Drug: Zofran (Ondansetron) 4 mg Route: IVP; Site: right antecubital; 3 10:11 Follow up: Response: Nausea is decreased [facility] 10:32 Drug: Ketorolac 15 mg Route: IVP; Site: right antecubital; 3 11:40 Follow up: Response: Pain is decreased [facility] Disposition: 06/26 07:11 Co-signature as Attending Physician, Giovani Hull MD I reviewed the patient's care rn provided by the Advanced Practice Provider and agree with the diagnosis and treatment plan. Disposition Summary: 06/25/22 12:17 Discharge Ordered Location: Home [facility] Problem: new [facility] Symptoms: have improved [facility] Condition: Stable [facility] Diagnosis - Viral gastroenteritis [facility] Followup: [facility] - With: Private Physician - When: 2 - 3 days - Reason: Recheck today's complaints Discharge Instructions: - Discharge Summary Sheet jh7 - Diarrhea, Adult jh7 - Viral Gastroenteritis, Adult jh7 - Vomiting, Adult 7 Forms: - Medication Reconciliation Form 7 - Thank You Letter 7 - Work release form 3 Prescriptions: - ondansetron 4 mg Oral tablet,disintegrating - place 1 tablet by TRANSLINGUAL route 4 times per day As needed; 20 tablet; 7 Refills: 0, Product Selection Permitted - Levsin 0.125 mg Oral Tablet - take 1 tablet by ORAL route every 8 hours; 30 tablet; Refills: 0, Product [facility] Selection Permitted Signatures: Dispatcher [employer] EDMS Hull, Giovani, MD MD rn Meredith Vergara, RN RN jh5 Cassie Shepherd RN RN eh3 Renee Tena FNP FNP jh7
--- NOTE | 2022-06-25 12:18 | ER ---
Nurse's Notes [facility] Name: Katy Khalil Age: 37 yrs Sex: Female : 1985 Arrival Date: 06/25/2022 Time: 08:33 Bed 9 Private MD: None, None Diagnosis: Viral gastroenteritis Presentation: 06/25 08:40 Chief complaint: Patient states: headache that wont go away since Saturday; pain in my 5 lower back, hot and cold, clammy, and it's getting worser with throwing and diarrhea. 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 Coronavirus screen: Vaccine status: Patient reports receiving the 2nd dose of the covid vaccine. Client denies travel out of the [place] in the last 14 days. Ebola Screen: Patient negative for fever greater than or equal to 101.5 degrees Fahrenheit, and additional compatible Ebola Virus Disease symptoms Patient denies exposure to infectious person. Patient denies travel to an Ebola-affected area in the 21 days before illness onset. Initial Sepsis Screen: Does the patient meet any 2 criteria? No. Patient's initial sepsis screen is negative. Does the patient have a suspected source of infection? No. Patient's initial sepsis screen is negative. Risk Assessment: Do you want to hurt yourself or someone else? Patient reports no desire to harm self or others. Onset of symptoms was June 23, 2022. 08:40 Method Of Arrival: Ambulatory [facility] 08:40 Acuity: KIRIT 3 [facility] Triage Assessment: 08:44 Headache History: Denies prior headaches. General: Appears uncomfortable, obese, well [facility] groomed, well developed, Behavior is calm, cooperative, appropriate for age. Pain: Pain currently is 7 out of 10 on a pain scale. at worst was 10 out of 10 on a pain scale. Pain began gradually, Also complains of nausea. Neuro: No deficits noted. 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 - Social history:: Smoking status: Patient denies any tobacco usage or history of. Screenin:55 [facility] ED Fall Risk Assessment (Adult) History of falling in the last 3 months, eh3 including since admission No falls in past 3 months (0 pts) Confusion or Disorientation No (0 pts) Intoxicated or Sedated No (0 pts) Impaired Gait No (0 pts) Mobility Assist Device Used No (0 pt) Altered Elimination Yes (1 pt) Score/Fall Risk Level 0 - 2 = Low Risk. Abuse screen: Denies threats or abuse. Denies injuries from another. Nutritional screening: No deficits noted. Tuberculosis screening: No symptoms or risk factors identified. Assessment: 08:55 General: Appears in no apparent distress. uncomfortable, Behavior is calm, cooperative, eh3 appropriate for age. Pain: Complains of pain in head. Neuro: Level of Consciousness is awake, alert, obeys commands, Oriented to person, place, time, situation. Neuro: Reports weakness. Cardiovascular: Capillary refill < 3 seconds Patient's skin is warm and dry. Respiratory: Airway is patent Respiratory effort is even, unlabored, Respiratory pattern is regular, symmetrical. GI: Abdomen is round non-distended, Reports diarrhea, intolerance of fluids, intolerance of food, nausea, vomiting. : No signs and/or symptoms were reported regarding the genitourinary system. EENT: No signs and/or symptoms were reported regarding the EENT system. Derm: No signs and/or symptoms reported regarding the dermatologic system. Skin is pink, warm \T\ dry. Musculoskeletal: No signs and/or symptoms reported regarding the musculoskeletal system. Circulation, motion, and sensation intact. Range of motion: intact in all extremities. 09:43 Reassessment: Patient appears in no apparent distress at this time. Patient and/or eh3 family updated on plan of care and expected duration. Pain level reassessed. Patient is alert, oriented x 3, equal unlabored respirations, skin warm/dry/pink. 10:33 Reassessment: Patient and/or family updated on plan of care and expected duration. Pain eh3 level reassessed. Patient is alert, oriented x 3, equal unlabored respirations, skin warm/dry/pink. Pt complains of pain in lower back, requests pain medication, provider notified. 11:30 Reassessment: Patient appears in no apparent distress at this time. Patient and/or eh3 family updated on plan of care and expected duration. Pain level reassessed. Patient is alert, oriented x 3, equal unlabored respirations, skin warm/dry/pink. Patient states symptoms have improved. 12:30 Reassessment: Patient appears in no apparent distress at this time. Patient and/or eh3 family updated on plan of care and expected duration. Pain level reassessed. Patient is alert, oriented x 3, equal unlabored respirations, skin warm/dry/pink. Vital Signs: 08:40 BP 133 / 77; Pulse 84; Resp 18; Temp 97.4; Pulse Ox 100% ; Weight 95.25 kg; Height 5 5 ft. 2 in. (157.48 cm); Pain 7/10; 09:42 BP 112 / 76; Pulse 92; Resp 16; Pulse Ox 99% ; eh3 10:32 BP 113 / 70; Pulse 91; Resp 18; Pulse Ox 97% on R/A; eh3 11:30 BP 122 / 60; Pulse 77; Resp 16; Pulse Ox 97% on R/A; eh3 08:40 Body Mass Index 38.41 (95.25 kg, 157.48 cm) [facility] ED Course: 08:33 Patient arrived in ED. as 08:33 None, None is Private Physician. as 08:33 Rene[facility] Tena FNP is [facility] 08:33 Giovani Hull MD is Attending Physician. 7 08:44 Triage completed. 5 08:44 Arm band placed on left wrist. [facility] 08:52 Cassie Shepherd, RN is Primary Nurse. 3 08:55 Patient has correct armband on for positive identification. Placed in gown. Bed in low eh3 position. Call light in reach. Side rails up X2. Pulse ox on. NIBP on. Door closed. Noise minimized. Lights dimmed. Warm blanket given. 08:55 Inserted saline lock: 20 gauge in right antecubital area, using aseptic technique. 3 Blood collected. 12:45 No provider procedures requiring assistance completed. IV discontinued, intact, eh3 bleeding controlled, No redness/swelling at site. Pressure dressing applied. Administered Medications: 09:00 Drug: NS 0.9% 1000 ml Route: IV; Rate: 1 bolus; Site: right antecubital; eh3 10:00 Follow up: IV Status: Completed infusion; IV Intake: 1000ml eh3 09:00 Drug: Pepcid (famotidine) 20 mg Route: IVP; Site: right antecubital; eh3 10:11 Follow up: Response: No adverse reaction eh3 09:00 Drug: TORadol - (ketorolac) 15 mg Route: IVP; Site: right antecubital; eh3 10:11 Follow up: Response: Pain is decreased eh3 09:00 Drug: Zofran (Ondansetron) 4 mg Route: IVP; Site: right antecubital; eh3 10:11 Follow up: Response: Nausea is decreased eh3 10:32 Drug: Ketorolac 15 mg Route: IVP; Site: right antecubital; eh3 11:40 Follow up: Response: Pain is decreased 3 Medication: 12:45 VIS not applicable for this client. 3 Intake: 10:00 IV: 1000ml; Total: 1000ml. 3 Outcome: 12:17 Discharge ordered by . [facility] 12:45 Discharged to home ambulatory. 3 12:45 Condition: stable 12:45 Discharge instructions given to patient, Instructed on discharge instructions, follow up and referral plans. medication usage, Demonstrated understanding of instructions, follow-up care, medications, Prescriptions given X 2. 12:46 Patient left the ED. 3 Signatures: Lara Warren Jessica, RN RN 5 Cassie Shepherd RN RN 3 Renee Tena, GLASS SMOOTHER GLASS SMOOTHER 7 Corrections: (The following items were deleted from the chart) 08:45 08:40 Pulse 84bpm; Resp 18bpm; Pulse Ox 100%; Temp 97.4F; 95.25 kg; Height 5 ft. 2 in.; 5 BMI: 38.4; Pain 7/10; jh5
[2022-06-25 13:21] VITALS: TEMP 97.4
[2022-06-25 13:24] VITALS: O2SAT 97
[2022-06-25 13:25] VITALS: BP 122/60
== END 2022-06-25 12:46 | disposition home or self-care (01) ==
LOC: ER 08:29
DX: A08.4 Viral intestinal infection, unspecified (principal); R51.9 Headache, unspecified; Z20.822 Contact with and (suspected) exposure to COVID-19
CPT/HCPCS: 96361; 85025; 36415; 81025; 83690; 80053; 0240U; 74177; 96375; 96374; 99284; Q9967; 81003; 81015

== ENCOUNTER 2022-07-12 17:29 | Emergency (ER) | payer BC ==
--- OUTSIDE RECORDS SUMMARY | 2022-07-12 17:41 | XMS REPORT | Continuity of Care Document ---
:1985 Author Organization [facility] t Address [address] [facility] [address] [place] [address] Care Team Providers Name Role Phone Unavailable [...] S ARS-CoV-2 RNA NOT (test code = 00520) DETECTED Negative results do not preclude SARS-C [...] prevalence is high. SOURCE (test code = 07562) NASOPHARYNGEAL Note: Methodology is Polly Brodie Real-Time RT-PCR. The expected result or reference range is NEGATI VE (Not Detected). For more information regarding COVID -19 testing to include clinica linformation, methodology det ail, intended use, FDA author ization andrecommended fact sheets for patients or hea lthcare providers, see [facility] Announcement: S ARS-CoV-2 (COVID-19) by Herman MERCADO at URL below (note,fact shee ts are provided by method given in report:https:// www.[employer]/ clinicians/kalli nt-communication s/ Alternativel y, see downloadable PD F fact sheet at:https://www. [employer]/COVI D-19-RT-PCR UNL ESS OTHERWISE INDICATED, ALL TESTING PERFORMED [facility], [facility]. [address] [place] [address] 4 FOOD SERVICE LEAD: Fredrick MONZON [id number] CAP ACCREDITATION N O. [id number]
[2022-07-12 19:19] LABS: SARS-COV-2 RT PCR NEGATIVE (NEGATIVE)
--- NOTE | 2022-07-12 20:32 | ER ---
Nurse's Notes [facility] Name: Katy Khalil Age: 37 yrs Sex: Female : 1985 Arrival Date: 07/12/2022 Time: 17:39 Bed 26 Private MD: Diagnosis: Streptococcal pharyngitis Presentation: 07/12 18:20 Chief complaint: Patient states: sore throat since yesterday and TUCKER. Coronavirus aa5 screen: sore throat. Ebola Screen: Patient denies travel to an Ebola-affected area in the 21 days before illness onset. Initial Sepsis Screen: Does the patient meet any 2 criteria? HR > 90 bpm. Does the patient have a suspected source of infection? No. Patient's initial sepsis screen is negative. Risk Assessment: Do you want to hurt yourself or someone else? Patient reports no desire to harm self or others. Onset of symptoms was July 2022. 18:20 Acuity: KIRIT 4 aa5 18:20 Method Of Arrival: Ambulatory aa5 Triage Assessment: 19:30 General: Appears in no apparent distress. uncomfortable, ill, Behavior is cooperative, vc1 appropriate for age. 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 - Social history:: Smoking status: Patient denies any tobacco usage or history of. Screenin:30 [facility] ED Fall Risk Assessment (Adult) History of falling in the last 3 months, vc1 including since admission No falls in past 3 months (0 pts) Confusion or Disorientation No (0 pts) Intoxicated or Sedated No (0 pts) Impaired Gait No (0 pts) Mobility Assist Device Used No (0 pt) Altered Elimination No (0 pt) Score/Fall Risk Level 0 - 2 = Low Risk Oriented to surroundings, Maintained a safe environment, Educated pt \T\ family on fall prevention, incl call for assistance when getting out of bed. Abuse screen: Denies threats or abuse. Nutritional screening: No deficits noted. Tuberculosis screening: No symptoms or risk factors identified. Assessment: 19:30 Pain: Complains of pain in throat Pain does not radiate. Pain currently is 10 out of 10 vc1 on a pain scale. Respiratory: Airway is patent Respiratory effort is even, unlabored, Breath sounds are clear. EENT: Throat is reddened Reports pain when swallowing. 20:30 Reassessment: Patient and/or family updated on plan of care and expected duration. Pain vc1 level reassessed. Patient is alert, oriented x 3, equal unlabored respirations, skin warm/dry/pink. Vital Signs: 18:20 BP 142 / 99; Pulse 92; Resp 18 S; Temp 98.1(TE); Pulse Ox 100% on R/A; Weight 90.72 kg aa5 (R); Height 5 ft. 2 in. (157.48 cm) (R); 18:20 Body Mass Index 36.58 (90.72 kg, 157.48 cm) aa5 ED Course: 17:39 Patient arrived in ED. am2 17:54 Louise Gallagher FNP-C [facility]. kb 17:54 Giovani Hull MD is Attending Physician. kb 18:20 Arm band placed on. aa5 18:21 Triage completed. aa5 19:30 Patient has correct armband on for positive identification. Bed in low position. Call vc1 light in reach. Pulse ox on. NIBP on. 20:50 No provider procedures requiring assistance completed. Patient did not have IV access vc1 during this emergency room visit. Administered Medications: No medications were administered Medication: 20:50 VIS not applicable for this client. vc1 Outcome: 20:32 Discharge ordered by . kb 20:56 Discharged to home ambulatory. pf1 20:56 Condition: stable 20:56 Discharge instructions given to patient, Instructed on discharge instructions, follow up and referral plans. Demonstrated understanding of instructions, follow-up care, medications, Prescriptions given X 1. 20:56 Patient left the ED. pf1 Signatures: Louise Gallagher FNP-C FNP-Ckb Calderon, Audri RN RN aa5 Terri Castaneda am2 Bethany Cruz RN RN vc1 Georgia garcia RN RN pf1 Corrections: (The following items were deleted from the chart) 18:22 18:21 PSHx: Cholecystectomy; aa5 aa5 03/03 02:57 03/02 20:00 No provider procedures requiring assistance completed. vc1 vc1 07/13 02:57 07/12 20:00 Patient did not have IV access during this emergency room visit. vc1 vc1
--- NOTE | 2022-07-12 20:32 | EDPHYS ---
Physician Documentation [facility] Name: Katy Khalil Age: 37 yrs Sex: Female : 1985 Arrival Date: 07/12/2022 Time: 17:39 Bed 26 Private MD: ED Physician Giovani Hull HPI: 07/12 20:06 This 37 yrs old Female presents to ER via Ambulatory with complaints of Sore kb Throat, Difficulty Swallowing. 20:06 The patient presents with sore throat. The patient describes throat pain as constant. kb Onset: The symptoms/episode began/occurred yesterday. Severity of symptoms: At their worst the symptoms were moderate, in the emergency department the symptoms are unchanged. Modifying factors: The symptoms are alleviated by nothing, the symptoms are aggravated by swallowing, Patient's oral intake status: good The patient has had contact with sick son. Associated signs and symptoms: Pertinent positives: Sore throat. The patient has not experienced similar symptoms in the past. The patient has not recently seen a physician. 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 - Social history:: Smoking status: Patient denies any tobacco usage or history of. ROS: 20:02 Constitutional: Negative for fever, chills, and weight loss. kb 20:05 ENT: Positive for sore throat. kb 20:05 Neuro: Positive for headache. 20:05 All other systems are negative. Exam: 20:05 Constitutional: This is a well developed, well nourished patient who is awake, alert, kb and in no acute distress. Head/Face: Normocephalic, atraumatic. Cardiovascular: Regular rate and rhythm with a normal S1 and S2. No gallops, murmurs, or rubs. No pulse deficits. Respiratory: Respirations even and unlabored. No increased work of breathing. Talking in full sentences Abdomen/GI: Soft, non-tender. No distention Skin: Warm, dry with normal turgor. Normal color. MS/ Extremity: Pulses equal, no cyanosis. Neurovascular intact. Full, normal range of motion. Neuro: Awake and alert, GCS 15, oriented to person, place, time, and situation. Moves all extremities. Normal gait. 20:05 ENT: External ear(s): are unremarkable, Ear canal(s): are normal, TM's: are normal, Nose: is normal, Posterior pharynx: Airway: normal, no evidence of obstruction, Tonsils: bilaterally enlarged, with erythema, Uvula: normal, midline. Vital Signs: 18:20 BP 142 / 99; Pulse 92; Resp 18 S; Temp 98.1(TE); Pulse Ox 100% on R/A; Weight 90.72 kg aa5 (R); Height 5 ft. 2 in. (157.48 cm) (R); 18:20 Body Mass Index 36.58 (90.72 kg, 157.48 cm) aa5 MDM: 17:59 Patient medically screened. kb 20:06 Differential diagnosis: pharyngitis, Strep, flu, COVID. Data reviewed: vital signs, kb nurses notes. Counseling: I had a detailed discussion with the patient and/or guardian regarding: the historical points, exam findings, and any diagnostic results supporting the discharge/admit diagnosis, lab results, the need for outpatient follow up, a family practitioner, to return to the emergency department if symptoms worsen or persist or if there are any questions or concerns that arise at home. 20:07 ED course: Patient is a 37-year-old female who presents for sore throat and headache kb that started yesterday. States son was tested positive for strep yesterday On exam patient has swelling and erythema to posterior pharynx. Respirations even and unlabored, nontoxic in appearance, lungs clear bilaterally. Patient educated on diagnostic results and need for follow-up with PCP. Verbal understanding received.. 20:32 ED course: Pt requests single dose shot for strep because she got that last time she kb had it. Educated that we cannot give shots of bicillin for strep at this time. Pt upset, but agrees to po antibiotics. . 07/12 18:00 Order name: Strep kb 07/12 18:00 Order name: COVID-19/FLU A+B; Complete Time: 19:22 kb Administered Medications: No medications were administered Disposition Summary: 07/12/22 20:32 Discharge Ordered Location: Home kb Condition: Stable kb Diagnosis - Streptococcal pharyngitis kb Followup: kb - With: Emergency Department - When: As needed - Reason: Worsening of condition Followup: kb - With: Private Physician - When: 2 - 3 days - Reason: Recheck today's complaints, Continuance of care, Re-evaluation by your physician Discharge Instructions: - Discharge Summary Sheet kb - Strep Throat, Adult, [id number] kb Forms: - Medication Reconciliation Form kb - Thank You Letter kb - Antibiotic Education kb - Prescription Opioid Use kb Prescriptions: - Amoxicillin 875 mg Oral Tablet - take 1 tablet by ORAL route every 12 hours for 10 days; 20 tablet; Refills: 0, kb Product Selection Permitted Signatures: Dispatcher [employer] Louise Rodriguez, GARY-C GARY-Laxmi Toussaint, RN RN aa5 Corrections: (The following items were deleted from the chart) 18:22 18:21 PSHx: Cholecystectomy; aa5 aa5
[2022-07-12 21:20] VITALS: BP 142/99; TEMP 98.1; O2SAT 100
== END 2022-07-12 20:56 | disposition home or self-care (01) ==
LOC: ER 17:29
DX: J02.0 Streptococcal pharyngitis (principal); Z20.822 Contact with and (suspected) exposure to COVID-19
CPT/HCPCS: 87070; 87081; 0240U; 99283

== ENCOUNTER 2022-11-23 12:22 | Emergency (ER) | payer BC ==
--- OUTSIDE RECORDS SUMMARY | 2022-11-23 12:24 | XMS REPORT | Continuity of Care Document ---
:1985 Author Organization [facility] t Address [address] [facility] [address] [place] [address] Care Team Providers Name Role Phone Unavailable [...] S ARS-CoV-2 RNA NOT (test code = 35584) DETECTED Negative results do not preclude SARS-C [...] prevalence is high. SOURCE (test code = 55568) NASOPHARYNGEAL Note: Methodology is Polly Brodie Real-Time RT-PCR. The expected result or reference range is NEGATI VE (Not Detected). For more information regarding COVID -19 testing to include clinica linformation, methodology det ail, intended use, FDA author ization andrecommended fact sheets for patients or hea lthcare providers, see [facility] Announcement: S ARS-CoV-2 (COVID-19) by Herman MERCADO at URL below (note,fact shee ts are provided by method given in report:https:// www.[employer]/ clinicians/kalli nt-communication s/ Alternativel y, see downloadable PD F fact sheet at:https://www. [employer]/COVI D-19-RT-PCR UNL ESS OTHERWISE INDICATED, ALL TESTING PERFORMED [facility], [facility]. 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 [id number]
[2022-11-23] MEDS ORDERED: KETOROLAC 30 MG/ML INJ ONE (12:58)
[2022-11-23 13:30] LABS: Absolute Lymphocytes (CBC) 2.2 K/uL (0.7-4.9); Hematocrit 35.4 % (36.0-45.0); Lymphocytes % 24.9 % (15.3-44.8); MCV 85.7 fL (80-100); MPV 8.1 fL (7.6-11.3); RBC Red Blood Cell Count 4.13 M/uL (3.86-4.86)
[2022-11-23 13:51] LABS: BUN Blood Urea Nitrogen 9 mg/dL (7-18); Bicarbonate 30 mEq/L (21-32); Glomerular Filtration Rate 110 ml/min (=/>90); Glucose Level 105 mg/dL (74-106); Magnesium 2.1 mg/dL (1.6-2.4); Sodium Level 137 mEq/L (136-145)
[2022-11-23 13:52] LABS: Troponin High Sensitivity < 3.0 pg/mL (<58.9)
--- NOTE | 2022-11-23 14:01 | RAD REPORT ---
EXAM DESCRIPTION: RAD - Chest Single View - 11/23/2022 1:43 pm CLINICAL HISTORY: CHEST PAIN COMPARISON: Chest Single View dated 02/04/2022; Chest Single View dated 10/02/2021; Chest Single View dated 03/08/2018 FINDINGS: Lines: None. Lungs: No evidence of edema or pneumonia. Pleural: No significant pleural effusions or pneumothorax. Cardiac: The heart size is within normal limits. Mediastinum: Within normal limits. Bones: No acute fractures. Other: None IMPRESSION: No acute cardiopulmonary disease.
[2022-11-23] MEDS ORDERED: CYCLOBENZAPRINE 10 MG TAB ONE (15:31)
[2022-11-23] MEDS ORDERED: dexAMETHasone 10 MG/ML VIAL ONE (15:31)
--- NOTE | 2022-11-23 15:45 | RAD REPORT ---
EXAM DESCRIPTION: CT - Chest For Pe Angio - 11/23/2022 3:35 pm CLINICAL HISTORY: CHEST PAIN COMPARISON: Chest Single View dated 11/23/2022 TECHNIQUE: Dynamically enhanced axial 3 mm thick images of the chest were obtained during administra tion of <100> mL Isovue 370 IV contrast. Coronal and oblique reconstruction images were generated and reviewed. Exam utilizes a protocol for optimal evaluation of pulmonary arterial tree. Maximum intensity projections 3D imaging was utilized All CT scans are performed using dose optimization technique as appropriate and may include automated exposure control or mA/KV adjustment according to patient size. FINDINGS: Chest Wall: No suspicious thyroid nodules or pathologic lymphadenopathy. Lungs: Low lung volumes/hypoventilation. Pleura: No significant effusions or pneumothorax. Mediastinum/sunita: No pathologic lymphadenopathy. Pulmonary arteries/Aorta: No filling defect identified. No aortic aneurysm. Heart: No significant pericardial effusion. Normal heart size. Upper abdomen: No acute abnormality.Hepatic steatosis. Bones: No acute abnormality. Nonaggressive lytic lesion in the manubrium measuring 19 x 13 millimeter s. . IMPRESSION: Negative for pulmonary embolism. No other definite acute process identified.
--- NOTE | 2022-11-23 15:58 | ER ---
Nurse's Notes [facility] Name: Katy Khalil Age: 37 yrs Sex: Female : 1985 Arrival Date: 11/23/2022 Time: 12:22 Bed 13 Private MD: Diagnosis: Chest pain, unspecified Presentation: 11/23 12:28 Chief complaint: Patient states: chest discomfort and pain with deep breathing that ss began 3 days ago. Coronavirus screen: Client presents with at least one sign or symptom that may indicate coronavirus-19. Ebola Screen: Patient denies exposure to infectious person. Patient denies travel to an Ebola-affected area in the 21 days before illness onset. Initial Sepsis Screen: Does the patient meet any 2 criteria? No. Patient's initial sepsis screen is negative. Does the patient have a suspected source of infection? No. Patient's initial sepsis screen is negative. Risk Assessment: Do you want to hurt yourself or someone else? Patient reports no desire to harm self or others. Onset of symptoms was November 20, 2022. 12:28 Method Of Arrival: Ambulatory ss 12:28 Acuity: KIRIT 3 ss Triage Assessment: 12:30 General: Appears in no apparent distress. uncomfortable, Behavior is calm, cooperative, eh3 appropriate for age. Pain: Complains of pain in chest and neck. Neuro: Level of Consciousness is awake, alert, obeys commands, Oriented to person, place, time, situation. Cardiovascular: Capillary refill < 3 seconds Patient's skin is warm and dry. Respiratory: Airway is patent Respiratory effort is even, unlabored, Respiratory pattern is regular, symmetrical. GI: Abdomen is round non-distended. Derm: Skin is intact, is healthy with good turgor. Musculoskeletal: Circulation, motion, and sensation intact. Range of motion: intact in all extremities. 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 - Social history:: Smoking status: Patient denies any tobacco usage or history of. Screenin:30 [facility] ED Fall Risk Assessment (Adult) Score/Fall Risk Level 0 - 2 = Low Risk. Abuse eh3 screen: Denies threats or abuse. Denies injuries from another. Nutritional screening: No deficits noted. Tuberculosis screening: No symptoms or risk factors identified. Assessment: 12:30 Pain: Pain radiates to neck Pain began 2-3 days ago. eh3 12:35 Reassessment: No changes from previously documented assessment. See triage assessment. eh3 13:30 Reassessment: Patient appears in no apparent distress at this time. Patient and/or 3 family updated on plan of care and expected duration. Pain level reassessed. Patient is alert, oriented x 3, equal unlabored respirations, skin warm/dry/pink. 14:30 Reassessment: Patient appears in no apparent distress at this time. Patient and/or 3 family updated on plan of care and expected duration. Pain level reassessed. Patient is alert, oriented x 3, equal unlabored respirations, skin warm/dry/pink. 15:30 Reassessment: Patient appears in no apparent distress at this time. Patient and/or 3 family updated on plan of care and expected duration. Pain level reassessed. Patient is alert, oriented x 3, equal unlabored respirations, skin warm/dry/pink. Vital Signs: 12:28 BP 122 / 77; Pulse 78; Resp 16; Temp 99.6(O); Pulse Ox 100% on R/A; Weight 90.72 kg; ss Height 5 ft. 2 in. ; Pain 7/10; 13:30 BP 130 / 71; Pulse 67; Resp 18; Pulse Ox 99% on R/A; eh3 14:30 BP 124 / 70; Pulse 68; Resp 18; Pulse Ox 98% on R/A; eh3 15:30 BP 146 / 81; Pulse 82; Resp 18; Pulse Ox 100% on R/A; eh3 12:28 Body Mass Index 36.58 (90.72 kg, 157.48 cm) ss 12:28 Pain Scale: Adult ED Course: 12:24 Patient arrived in ED. ts1 12:28 Arm band placed on right wrist. ss 12:29 Triage completed. ss 12:30 Patient has correct armband on for positive identification. Bed in low position. Call 3 light in reach. Side rails up X2. Provided Education on: N/A. Client placed on continuous cardiac and pulse oximetry monitoring. NIBP monitoring applied. Door closed. Noise minimized. 12:30 Patient maintains SpO2 saturation greater than 95% on room air. eh3 12:34 Cassie Shepherd, LUPIS is Primary Nurse. eh3 12:37 Louise Gallagher [facility]C [facility]. kb 12:37 Hermes Hernandez MD is Attending Physician. kb 13:05 Inserted saline lock: 20 gauge in right antecubital area, using aseptic technique. eh3 Blood collected. 13:45 XRAY Chest (1 view) In Process Unspecified. EDMS 15:38 CT Chest For PE Angio In Process Unspecified. EDMS 16:02 No provider procedures requiring assistance completed. IV discontinued, intact, eh3 bleeding controlled, No redness/swelling at site. Pressure dressing applied. Administered Medications: 13:05 Drug: Ketorolac IVP 15 mg Route: IVP; Site: right antecubital; eh3 14:00 Follow up: Response: No adverse reaction eh3 15:27 Drug: Cyclobenzaprine PO 10 mg Route: PO; eh3 16:03 Follow up: Response: No adverse reaction eh3 15:27 Drug: Decadron - Dexamethasone IVP 10 mg Route: IVP; Site: right antecubital; eh3 16:02 Follow up: Response: No adverse reaction eh3 Medication: 16:02 VIS not applicable for this client. eh3 Outcome: 15:57 Discharge ordered by . kb 16:02 Discharged to home ambulatory. eh3 16:02 Condition: stable 16:02 Discharge instructions given to patient, Instructed on discharge instructions, follow up and referral plans. medication usage, Demonstrated understanding of instructions, follow-up care, medications, Prescriptions given X 2. 16:18 Patient left the ED. eh3 Signatures: Dispatcher [employer] EDCO Louise Gallagher FNP-C FNP-Ckb Blanchard, [place], RN RN Cassie Shepherd, LUPIS RN eh3 Danya Lamb PAS PAS ts1
--- NOTE | 2022-11-23 15:58 | EDPHYS ---
Physician Documentation [facility] Name: Katy Khalil Age: 37 yrs Sex: Female : 1985 Arrival Date: 11/23/2022 Time: 12:22 Bed 13 Private MD: ED Physician Hermes Hernandez HPI: 11/23 13:42 This 37 yrs old Female presents to ER via Ambulatory with complaints of Chest kb Tightness. 13:42 The patient or guardian reports chest pain that is located primarily in the anterior kb chest wall, right. The pain radiates to Associated signs and symptoms: The patient has no apparent associated signs or symptoms. The chest pain is described as aching. Duration: The patient or guardian reports a single episode. Modifying factors: The symptoms are alleviated by nothing. the symptoms are aggravated by deep breath. Severity of pain: At its worst the pain was moderate in the emergency department the pain is unchanged. The patient has not experienced similar symptoms in the past. The patient has not recently seen a physician. 13:49 Pt reports right chest pain that started 3 days ago and is worse with inspiration. kb Denies shortness of breath, cough, fever. 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 - Social history:: Smoking status: Patient denies any tobacco usage or history of. ROS: 13:41 Constitutional: Negative for fever, chills, and weight loss. kb 13:41 Cardiovascular: Positive for chest pain, Negative for edema, orthopnea, palpitations, paroxysmal nocturnal dyspnea. 13:41 All other systems are negative. Exam: 13:10 Constitutional: This is a well developed, well nourished patient who is awake, alert, kb and in no acute distress. Head/Face: Normocephalic, atraumatic. ENT: Moist Mucous membranes Cardiovascular: Regular rate and rhythm with a normal S1 and S2. No gallops, murmurs, or rubs. No pulse deficits. Respiratory: Respirations even and unlabored. No increased work of breathing. Talking in full sentences Abdomen/GI: Soft, non-tender. No distention Skin: Warm, dry with normal turgor. Normal color. MS/ Extremity: Pulses equal, no cyanosis. Neurovascular intact. Full, normal range of motion. Neuro: Awake and alert, GCS 15, oriented to person, place, time, and situation. Moves all extremities. Normal gait. 13:10 ECG was reviewed by the Attending Physician. 13:43 Neck: External neck: tenderness, that is mild, that is moderate, of the right mid kb cervical area and right trapezius. Vital Signs: 12:28 BP 122 / 77; Pulse 78; Resp 16; Temp 99.6(O); Pulse Ox 100% on R/A; Weight 90.72 kg; ss Height 5 ft. 2 in. ; Pain 7/10; 13:30 BP 130 / 71; Pulse 67; Resp 18; Pulse Ox 99% on R/A; eh3 14:30 BP 124 / 70; Pulse 68; Resp 18; Pulse Ox 98% on R/A; eh3 15:30 BP 146 / 81; Pulse 82; Resp 18; Pulse Ox 100% on R/A; eh3 12:28 Body Mass Index 36.58 (90.72 kg, 157.48 cm) ss 12:28 Pain Scale: Adult ss MDM: 12:38 Patient medically screened. kb 13:42 Data reviewed: vital signs, nurses notes. kb 16:04 Differential diagnosis: abnormal EKG, anxiety, coronary artery disease chest wall pain, kb pleurisy, pneumonia, pneumothorax, pulmonary embolus. Counseling: I had a detailed discussion with the patient and/or guardian regarding: the historical points, exam findings, and any diagnostic results supporting the discharge/admit diagnosis, lab results, radiology results, the need for outpatient follow up, a family practitioner, to return to the emergency department if symptoms worsen or persist or if there are any questions or concerns that arise at home. 11/23 12:47 Order name: Basic Metabolic Panel; Complete Time: 13:52 kb 11/23 12:47 Order name: CBC with Diff; Complete Time: 13:41 kb 11/23 12:47 Order name: D-Dimer; Complete Time: 15:19 kb 11/23 12:47 Order name: Magnesium; Complete Time: 13:52 kb 11/23 12:47 Order name: Troponin HS; Complete Time: 13:52 kb 11/23 12:47 Order name: XRAY Chest (1 view); Complete Time: 14:04 kb 11/23 15:20 Order name: CT Chest For PE Angio; Complete Time: 15:56 kb 11/23 12:47 Order name: EKG; Complete Time: 12:48 kb 11/23 12:47 Order name: Cardiac monitoring; Complete Time: 12:50 kb 11/23 12:47 Order name: EKG - Nurse/Tech; Complete Time: 13:14 kb 11/23 12:47 Order name: IV Saline Lock; Complete Time: 13:14 kb 11/23 12:47 Order name: Labs collected and sent; Complete Time: 13:14 kb 11/23 12:47 Order name: O2 Per Protocol; Complete Time: 12:50 kb 11/23 12:47 Order name: O2 Sat Monitoring; Complete Time: 12:50 kb EC:10 Rate is 71 beats/min. Rhythm is regular. QRS Norris is Normal. GA interval is normal at kb 152 msec. QRS interval is normal at 86 msec. QT interval is normal at 447 msec. Administered Medications: 13:05 Drug: Ketorolac IVP 15 mg Route: IVP; Site: right antecubital; eh3 14:00 Follow up: Response: No adverse reaction eh3 15:27 Drug: Cyclobenzaprine PO 10 mg Route: PO; eh3 16:03 Follow up: Response: No adverse reaction eh3 15:27 Drug: Decadron - Dexamethasone IVP 10 mg Route: IVP; Site: right antecubital; eh3 16:02 Follow up: Response: No adverse reaction eh3 Disposition Summary: 11/23/22 15:57 Discharge Ordered Location: Home kb Condition: Stable kb Diagnosis - Chest pain, unspecified kb Followup: kb - With: Emergency Department - When: As needed - Reason: Worsening of condition Followup: kb - With: Private Physician - When: 2 - 3 days - Reason: Recheck today's complaints, Continuance of care, Re-evaluation by your physician Discharge Instructions: - Discharge Summary Sheet kb - Nonspecific Chest Pain, Adult, [id number] kb - Cervical Radiculopathy, [id number] kb Forms: - Work release form kb - Medication Reconciliation Form kb - Thank You Letter kb - Antibiotic Education kb - Prescription Opioid Use kb - Patient Portal Instructions kb Prescriptions: - Diclofenac Sodium 75 mg Oral tablet,delayed release (DR/EC) - take 1 tablet by ORAL route 2 times per day As needed; 30 tablet; Refills: 0, kb Product Selection Permitted - orphenadrine citrate 100 mg Oral Tablet Sustained Release - take 1 tablet by ORAL route 2 times per day As needed; 20 tablet; Refills: 0, kb Product Selection Permitted Signatures: Dispatcher [employer] Louise Rodriguez, Lizzie Segura, RN RN ss Cassie Shepherd RN RN eh3
[2022-11-23 16:42] VITALS: TEMP 99.6
[2022-11-23 16:45] VITALS: BP 146/81; O2SAT 100
--- NOTE | 2022-11-26 11:51 | EKG ---
Test Date: 2022-11-23 Test Time: 12:55:25 [place] Steward/Stewardess: MILEY MEASUREMENT RESULTS: Intervals: Rate: 71 PA: 152 QRSD: 86 QT: 412 QTc: 447 [place]: P: 47 PA: 152 QRS: 81 T: 67 INTERPRETIVE STATEMENTS: Normal sinus rhythm Normal ECG Compared to ECG 10/02/2021 09:22:32 No significant changes Electronically Signed On 11-26-22 11:46:47 CDT by Jaime Parham
== END 2022-11-23 16:18 | disposition home or self-care (01) ==
LOC: ER 12:22
DX: R07.89 Other chest pain (principal)
CPT/HCPCS: 93005; 85025; 80048; 36415; 83735; 85379; 84484; 71275; 71045; 96375; 96374; 99285; J1100